=== PATIENT | female | born 2000 | race Caucasian/White ===

== ENCOUNTER 2020-10-07 02:26 | Emergency (ER) | payer OTHER ==
--- NOTE | 2020-10-07 03:08 | ERPHSYRPT ---
- History of Present Illness Time Seen by Provider: 10/07/20 02:45 Historian: patient, family Exam Limitations: no limitations Patient Subjective Stated Complaint: pt states she has been having intermittent lt lower abd pain for 3-4 days. pain has been much worse since 1999 Triage Nursing Assessment: pt states she has been having lt lower abd pain since about 1999. pt ambulatory with steady gait noted. respirations nonlabored. abd soft, pt reports tenderness with light palpation. bowel sounds present x4. Physician History: This is a 20-year-old white female who just moved here from [facility] and presents to the emergency department with intermittent left lower quadrant abdominal pain. Most often, it appears to occur around her menstrual period but occasionally, like 1 day ago and this morning the pain is intermittently sharp and stabbing and occurs at night. Patient has chronic nausea. There is no other associated symptoms. She has not been having any vomiting or diarrhea. She has had no abnormal vaginal discharge. She has had this worked up several months ago and was supposed to get some type of hormonal injection or medication but states that she attempted to follow-up but there was lack of communication. She then moved to [facility]. She has had a laparoscopic exploration and a "tumor" removed from her cyst. Patient does have a prior history of ovarian cysts Timing/Duration: day(s) (3-4) Activities at Onset: none Quality: sharpness, stabbing Abdominal Pain Onset Location: LLQ Pain Radiation: no radiation Severity of Pain-Max: moderate Severity of Pain-Current: moderate Modifying Factors: Improves With: nothing Associated Symptoms: nausea, No chest pain, No diarrhea, No loss of appetite, No vomiting Previous symptoms: same symptoms as today, no recent treatment Allergies/Adverse Reactions: Iodinated Contrast Media Allergy (Severe, Verified 10/07/20 03:21) Swelling aspirin Allergy (Intermediate, Verified 10/07/20 03:21) Swelling kiwi Allergy (Intermediate, Verified 10/07/20 03:21) peanut Allergy (Verified 10/07/20 03:21) acetaminophen [From Theraflu Day-Night Cold,Cough] Adverse Reaction (Mild, Verified 10/07/20 03:21) Vomiting dextromethorphan [From Theraflu Day-Night Cold,Cough] Adverse Reaction (Mild, Verified 10/07/20 03:21) Vomiting diphenhydramine [From Theraflu Day-Night Cold,Cough] Adverse Reaction (Mild, Verified 10/07/20 03:21) Vomiting guaifenesin [From Mucinex] Adverse Reaction (Mild, Verified 10/07/20 03:21) Nausea and Vomiting ibuprofen [From Advil] Adverse Reaction (Mild, Verified 10/07/20 03:21) Headache phenylephrine [From Theraflu Day-Night Cold,Cough] Adverse Reaction (Mild, Verified 10/07/20 03:21) Vomiting Hx Tetanus, Diphtheria Vaccination/Date Given: Yes Hx Influenza Vaccination/Date Given: No Hx Pneumococcal Vaccination/Date Given: No Immunizations Up to Date: Yes Travel Risk - International Travel Have you traveled outside of the country in past 3 weeks: No - Coronavirus Screening Are you exhibiting any of the following symptoms?: No Close contact with a COVID-19 positive Pt in past 14-21 Days: No - Vaccine Status Have you recieved a Covid-19 vaccination: No - Review of Systems Constitutional: No Symptoms Eyes: No Symptoms Ears, Nose, & Throat: No Symptoms Respiratory: No Symptoms Cardiac: No Symptoms Abdominal/Gastrointestinal: Abdominal Pain, Nausea, No Vomiting, No Diarrhea, No Constipation Genitourinary Symptoms: No Symptoms Musculoskeletal: No Symptoms Skin: No Symptoms Neurological: No Symptoms Psychological: No Symptoms Endocrine: No Symptoms Hematologic/Lymphatic: No Symptoms Immunological/Allergic: No Symptoms All Other Systems: Reviewed and Negative - Past Medical History Pertinent Past Medical History: Yes Other Medical History: hx of ovarian cysts - Past Surgical History Past Surgical History: Yes Other Surgical History: 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 laproscopic procedure to look at ovaries - Social History Smoking Status: Never smoker Exposure to second hand smoke: Yes Drug Use: none Patient Lives Alone: No - Female History Hx Last Menstrual Period: 09/25/2020 Hx Now: No - Nursing Vital Signs Nursing Vital Signs: Initial Vital Signs Temperature 98.4 F 10/07/20 02:30 Pulse Rate 109 H 10/07/20 02:30 Respiratory Rate 20 10/07/20 02:30 Blood Pressure 136/84 10/07/20 02:30 O2 Sat by Pulse Oximetry 97 10/07/20 02:30 Pain Scale Pain Intensity 4 - Physical Exam General Appearance: mild distress, alert, anxiety Eye Exam: PERRL/EOMI, eyes nml inspection Ears, Nose, Throat Exam: normal ENT inspection, moist mucous membranes Neck Exam: normal inspection, non-tender, supple, full range of motion Respiratory Exam: normal breath sounds, lungs clear, airway intact, No chest tenderness, No respiratory distress Cardiovascular Exam: tachycardia Gastrointestinal/Abdomen Exam: soft, normal bowel sounds, tenderness (Left lower quadrant), guarding (Left lower quadrant), No rebound Pelvic Exam: not done Rectal Exam: not done Back Exam: normal inspection, normal range of motion, No CVA tenderness, No vertebral tenderness Extremity Exam: normal inspection, normal range of motion, pelvis stable Neurologic Exam: alert, oriented x 3, cooperative, ore buyer II-XII nml as tested, n ormal mood/affect, nml cerebellar function, nml station & gait, sensation nml Skin Exam: normal color, warm, dry Lymphatic Exam: No adenopathy SpO2 Interpretation: normal SpO2: 97 O2 Delivery: Room Air - Course Nursing assessment & vital signs reviewed: Yes Ordered Tests: Active Orders 24 hr Category Date Time Status IV Insertion STAT Care 10/07/20 03:09 Active ABDOMEN AND PELVIS W/0 CONTRAS [CT] Stat Exams 10/07/20 03:42 Taken AMYLASE Stat Lab 10/07/20 03:12 Completed CBC W DIFF Stat Lab 10/07/20 03:12 Completed CMP Stat Lab 10/07/20 03:12 Completed HCG QUALITATIVE,SERUM Stat Lab 10/07/20 03:12 Completed LIPASE Stat Lab 10/07/20 03:12 Completed Lactic Acid Stat Lab 10/07/20 03:09 Completed UA W/RFX UR CULTURE Stat Lab 10/07/20 03:55 Completed Medication Summary Discontinued Medications Generic Name Dose Route Start Last Admin Trade Name Gloria PRN Reason Stop Dose Admin Hydromorphone HCl 0.5 mg 10/07/20 03:09 10/07/20 03:21 Hydromorphone 1 Mg/Ml Injection IV 10/07/20 03:10 0.5 mg STAT ONE Administration Hydromorphone HCl Confirm 10/07/20 03:20 Hydromorphone 1 Mg/Ml Injection Administered 10/07/20 03:21 Dose 1 mg .ROUTE .STK-MED ONE Sodium Chloride 500 mls @ 500 mls/hr 10/07/20 03:10 10/07/20 03:23 Sodium Chloride 0.9% 500 Ml IV 10/07/20 04:09 500 mls/hr .Q1H ONE Administration Sodium Chloride Confirm 10/07/20 03:20 Sodium Chloride 0.9% 500 Ml Administered 10/07/20 03:21 Dose 500 mls @ ud IV .STK-MED ONE Ketorolac Tromethamine 30 mg 10/07/20 03:09 10/07/20 03:22 Toradol 30 Mg Injection IV 10/07/20 03:10 30 mg STAT ONE Administration Ketorolac Tromethamine Confirm 10/07/20 03:19 Toradol 30 Mg Injection Administered 10/07/20 03:20 Dose 30 mg .ROUTE .STK-MED ONE Ondansetron HCl 4 mg 10/07/20 03:09 10/07/20 03:22 Zofran 4 Mg/2 Ml Vial IV 10/07/20 03:10 4 mg STAT ONE Administration Ondansetron HCl Confirm 10/07/20 03:19 Zofran 4 Mg/2 Ml Vial Administered 10/07/20 03:20 Dose 4 mg .ROUTE .STK-MED ONE Lab/Rad Data: Laboratory Result Diagrams 10/07/20 03:12 10/07/20 03:12 Laboratory Results 10/07/20 10/07/20 10/07/20 Range/Units 03:55 03:12 03:12 WBC (4.0-10.5) K/mm3 RBC (4.1-5.4) M/mm3 Hgb (12.0-16.0) gm/dl Hct (35-47) % MCV (78-100) fl MCH (26-32) pg MCHC (32-36) g/dl RDW (11.5-14.0) % Plt Count (150-450) K/mm3 MPV (7.5-11.0) fl Gran % (36.0-66.0) % Eos # (Auto) (0-0.5) Absolute Lymphs (auto) (1.0-4.6) Absolute Monos (auto) (0.0-1.3) Lymphocytes % (24.0-44.0) % Monocytes % (0.0-12.0) % Eosinophils % (0.00-5.0) % Basophils % (0.0-0.4) % Absolute Granulocytes (1.4-6.9) Basophils # (0-0.4) Sodium 139 (137-145) mmol/L Potassium 3.5 (3.5-5.1) mmol/L Chloride 104 (98-107) mmol/L Carbon Dioxide 25 (22-30) mmol/L Anion Gap 13.8 (5-15) MEQ/L BUN 12 (7-17) mg/dL Creatinine 0.87 (0.52-1.04) mg/dL Estimated GFR > 60.0 ML/MIN Glucose 108 H (74-106) mg/dL Lactic Acid (0.4-2.0) Calcium 10.1 (8.4-10.2) mg/dL Total Bilirubin 0.50 (0.2-1.3) mg/dL AST 25 (14-36) U/L ALT 24 (0-35) U/L Alkaline Phosphatase 82 (38-126) U/L Serum Total Protein 8.2 (6.3-8.2) g/dL Albumin 5.0 (3.5-5.0) g/dL Amylase 96 (30-110) U/L Lipase 87 (23-300) U/L Serum , Qual NEGATIVE (Negative) Urine Color YELLOW (YELLOW) Urine Appearance SLIGHTLY CLOUDY (CLEAR) Urine pH 6.0 (5-6) Ur Specific [place] 1.024 (1.005-1.025) Urine Protein NEGATIVE (Negative) Urine Ketones NEGATIVE (NEGATIVE) Urine Blood NEGATIVE (0-5) Conor/ul Urine Nitrite NEGATIVE (NEGATIVE) Urine Bilirubin NEGATIVE (NEGATIVE) Urine Urobilinogen 2 (0-1) mg/dL Ur Leukocyte Esterase MODERATE (NEGATIVE) Urine WBC (Auto) 6-10 (0-5) /HPF Urine RBC (Auto) 0-2 (0-2) /HPF U Epithel Cells (Auto) RARE (FEW) /HPF Urine Bacteria (Auto) NONE SEEN (NEGATIVE) /HPF Urine Mucus (Auto) SLIGHT (NEGATIVE) /HPF Urine Culture Reflexed NO (NO) Urine Glucose NEGATIVE (NEGATIVE) mg/dL 10/07/20 10/07/20 Range/Units 03:12 03:09 WBC 8.9 (4.0-10.5) K/mm3 RBC 4.89 (4.1-5.4) M/mm3 Hgb 14.6 (12.0-16.0) gm/dl Hct 43.3 (35-47) % MCV 88.5 (78-100) fl MCH 29.9 (26-32) pg MCHC 33.7 (32-36) g/dl RDW 13.1 (11.5-14.0) % Plt Count 267 (150-450) K/mm3 MPV 10.8 (7.5-11.0) fl Gran % 59.9 (36.0-66.0) % Eos # (Auto) 0.10 (0-0.5) Absolute Lymphs (auto) 2.73 (1.0-4.6) Absolute Monos (auto) 0.74 (0.0-1.3) Lymphocytes % 30.6 (24.0-44.0) % Monocytes % 8.3 (0.0-12.0) % Eosinophils % 1.1 (0.00-5.0) % Basophils % 0.1 (0.0-0.4) % Absolute Granulocytes 5.34 (1.4-6.9) Basophils # 0.01 (0-0.4) Sodium (137-145) mmol/L Potassium (3.5-5.1) mmol/L Chloride (98-107) mmol/L Carbon Dioxide (22-30) mmol/L Anion Gap (5-15) MEQ/L BUN (7-17) mg/dL Creatinine (0.52-1.04) mg/dL Estimated GFR ML/MIN Glucose (74-106) mg/dL Lactic Acid 1.2 (0.4-2.0) Calcium (8.4-10.2) mg/dL Total Bilirubin (0.2-1.3) mg/dL AST (14-36) U/L ALT (0-35) U/L Alkaline Phosphatase (38-126) U/L Serum Total Protein (6.3-8.2) g/dL Albumin (3.5-5.0) g/dL Amylase (30-110) U/L Lipase (23-300) U/L Serum , Qual (Negative) Urine Color (YELLOW) Urine Appearance (CLEAR) Urine pH (5-6) Ur Specific [place] (1.005-1.025) Urine Protein (Negative) Urine Ketones (NEGATIVE) Urine Blood (0-5) Conor/ul Urine Nitrite (NEGATIVE) Urine Bilirubin (NEGATIVE) Urine Urobilinogen (0-1) mg/dL Ur Leukocyte Esterase (NEGATIVE) Urine WBC (Auto) (0-5) /HPF Urine RBC (Auto) (0-2) /HPF U Epithel Cells (Auto) (FEW) /HPF Urine Bacteria (Auto) (NEGATIVE) /HPF Urine Mucus (Auto) (NEGATIVE) /HPF Urine Culture Reflexed (NO) Urine Glucose (NEGATIVE) mg/dL - Progress Progress: improved, pain not gone completely Progress Note: 10/07/20 04:44 CAT scan of the abdomen and pelvis shows no acute findings on this noncontrasted exam. Counseled pt/family regarding: lab results, diagnosis, need for follow-up, rad results - Departure Departure Disposition: Home Clinical Impression: Abdominal pain Condition: Stable Critical Care Time: No Referrals: MINAL REINOSO MD [Primary Care Provider] - Additional Instructions: Use Tylenol and ibuprofen for pain control if there are no contraindications or allergies. Follow-up with Dr.Dr. Villegas's office for further management. Drink plenty of fluids. Take medication as prescribed Prescriptions: Ciprofloxacin [Cipro 500 MG] 500 mg PO BID #14 tablet
[2020-10-07 03:15] LABS: Absolute Neutrophil Ct (ANC) 5.34 (1.4-6.9); BASOPHIL % 0.1 % (0.0-0.4); Basophil (Absolute #) 0.01 (0-0.4); Eosinophil % 1.1 % (0.00-5.0); Hematocrit 43.3 % (35-47); Hemoglobin 14.6 gm/dl (12.0-16.0); Lymphocyte (Absolute #) 2.73 (1.0-4.6); Lymphocytes % 30.6 % (24.0-44.0); Mean Cell Volume 88.5 fl (78-100); Mean Corpuscular Hemoglobin 29.9 pg (26-32); Mean Corpuscular Hgb Concent. 33.7 g/dl (32-36); Mean Platelet Volume 10.8 fl (7.5-11.0); Monocyte (Absolute #) 0.74 (0.0-1.3); Monocytes % 8.3 % (0.0-12.0); Neutrophil % 59.9 % (36.0-66.0); Platelet Count 267 K/mm3 (150-450); Red Blood Count 4.89 M/mm3 (4.1-5.4); Red Cell Distribution Width 13.1 % (11.5-14.0); White Blood Count 8.9 K/mm3 (4.0-10.5)
[2020-10-07] MEDS ORDERED: Zofran 4 MG/2 ML VIAL ONE (03:19)
[2020-10-07] MEDS ORDERED: TORAdol 30 mg Injection ONE (03:19)
[2020-10-07 03:20] LABS: ALKALINE PHOSPHATASE 82 U/L (38-126); AMYLASE 96 U/L (30-110); ANION GAP 13.8 MEQ/L (5-15); BLOOD UREA NITROGEN 12 mg/dL (7-17); CHLORIDE 104 mmol/L (98-107); Calcium 10.1 mg/dL (8.4-10.2); Carbon Dioxide 25 mmol/L (22-30); Creatinine 1 0.87 mg/dL (0.52-1.04); EST GLOMERULAR FILTRATION RATE > 60.0 ML/MIN; Glucose 108 mg/dL (74-106); LIPASE 87 U/L (23-300); Potassium 3.5 mmol/L (3.5-5.1); SGOT/AST 25 U/L (14-36); SGPT/ALT 24 U/L (0-35); SODIUM 139 mmol/L (137-145); Total Protein 8.2 g/dL (6.3-8.2)
[2020-10-07] MEDS ORDERED: Sodium Chloride 0.9% 500 ML 500 ML IV ONE (03:20)
[2020-10-07] MEDS ORDERED: Hydromorphone 1 mg/ml Injection ONE (03:20)
[2020-10-07] MEDS: Hydromorphone 1 mg/ml Injection IV ONE (03:21)
[2020-10-07] MEDS: Zofran 4 MG/2 ML VIAL IV ONE (03:22)
[2020-10-07] MEDS: TORAdol 30 mg Injection IV ONE (03:22)
[2020-10-07] MEDS: Sodium Chloride 0.9% 500 ML 500 ML IV ONE (03:23)
[2020-10-07 04:34] LABS: Appearance SLIGHTLY CLOUDY (CLEAR); Bilirubin NEGATIVE (NEGATIVE); Blood NEGATIVE Ery/ul (0-5); Epithelial Cells RARE /HPF (FEW); Glucose NEGATIVE (NEGATIVE); Ketones NEGATIVE (NEGATIVE); Leukocyte Esterase MODERATE (NEGATIVE); Mucus SLIGHT /HPF (NEGATIVE); Nitrite NEGATIVE (NEGATIVE); Protein,Urine Dip NEGATIVE (Negative); RBC 0-2 /HPF (0-2); Specific Gravity 1.024 (1.005-1.025); Urobilinogen 2 mg/dL (0-1)
[2020-10-07 04:35] LABS: Bacteria NONE SEEN /HPF (NEGATIVE)
[2020-10-07 05:08] VITALS: BP 98/68; PULSE 69; O2SAT 96
[2020-10-07] MEDS ORDERED: Levofloxacin 250MG Tablet ONE (05:09)
[2020-10-07] MEDS: Levofloxacin 250MG Tablet PO ONE (05:09)
--- NOTE | 2020-10-07 08:42 | XRAY ---
Indication: Left lower quadrant pain, nausea, and vomiting. History ovarian cysts. Multiple contiguous axial images obtained through the abdomen and pelvis without contrast. Comparison: None Lung bases are clear. Heart is not enlarged. Minimal respiration artifact throughout the abdomen. Noncontrasted stomach and bowel loops appear nonobstructed. Normal appendix. There is mild diffuse scattered colonic fecal debris, greatest sigmoid colon. No free fluid/air. Remaining liver, gallbladder, pancreas, spleen, adrenal glands, kidneys, ureters, bladder, uterus, and aorta appear unremarkable for noncontrast exam. Osseous structures intact. No ventral or inguinal hernias. Impression: 1. Minimal respiration artifact. 2. Mild fecal stasis. 3. Remaining CT abdomen/pelvis without contrast exam is grossly negative. Comment: Preliminary interpretation was made by [facility]. No critical discrepancy.
== END 2020-10-07 05:18 | disposition home or self-care (01) ==
LOC: ED 02:26
DX: R10.9 Unspecified abdominal pain (principal)
CPT/HCPCS: 36000; 36415; 74176; 80053; 81001; 81025; 82150; 83605; 83690; 85025; 96360; 96374; 96375; 99284; J1170; J1885; J2405; A9270-GY

== ENCOUNTER 2020-10-22 17:29 | Emergency (ER) | payer OTHER ==
--- NOTE | 2020-10-22 17:33 | ERPHSYRPT ---
- History of Present Illness Time Seen by Provider: 10/22/20 17:33 Source: patient Exam Limitations: no limitations Physician History: This is a 20-year-old white female who presents to the emergency department with "allergic reaction" after taking a single dose of a new oral contraceptive agent. She received a prescription from Dr. Villegas, her OB technical proposal writer earlier today. She took a dose and approximately 2 hours later began "not feeling right" she felt as though she was going to pass out and then did pass out she is has rash on her hands and knees. She has had no nausea vomiting no diarrhea. She is not short of breath. She arrives more anxious than short of breath. She has no chest pain. She has no abdominal pain. Timing/Duration: today Quality: burning Severity: mild Location: generalized Possible Causes: medications Associated Symptoms: denies symptoms Allergies/Adverse Reactions: Iodinated Contrast Media Allergy (Severe, Verified 10/22/20 17:50) Swelling aspirin Allergy (Intermediate, Verified 10/22/20 17:50) Swelling kiwi Allergy (Intermediate, Verified 10/22/20 17:50) peanut Allergy (Verified 10/22/20 17:50) acetaminophen [From Theraflu Day-Night Cold,Cough] Adverse Reaction (Mild, Verified 10/22/20 17:50) Vomiting dextromethorphan [From Theraflu Day-Night Cold,Cough] Adverse Reaction (Mild, Verified 10/22/20 17:50) Vomiting diphenhydramine [From Theraflu Day-Night Cold,Cough] Adverse Reaction (Mild, Verified 10/22/20 17:50) Vomiting guaifenesin [From Mucinex] Adverse Reaction (Mild, Verified 10/22/20 17:50) Nausea and Vomiting ibuprofen [From Advil] Adverse Reaction (Mild, Verified 10/22/20 17:50) Headache phenylephrine [From Theraflu Day-Night Cold,Cough] Adverse Reaction (Mild, Verified 10/22/20 17:50) Vomiting Home Medications: l-Norgest/E.estradiol-E.estrad [Simpesse 0.15-0.03-0.01 mg Tab] 1 each PO DAILY 10/22/20 [History] Hx Tetanus, Diphtheria Vaccination/Date Given: Yes Hx Influenza Vaccination/Date Given: No Hx Pneumococcal Vaccination/Date Given: No Travel Risk - International Travel Have you traveled outside of the country in past 3 weeks: No - Coronavirus Screening Are you exhibiting any of the following symptoms?: No Close contact with a COVID-19 positive Pt in past 14-21 Days: No - Vaccine Status Have you recieved a Covid-19 vaccination: No - Review of Systems Constitutional: No Symptoms Eyes: No Symptoms Ears, Nose, & Throat: No Symptoms Respiratory: No Symptoms Cardiac: No Symptoms Abdominal/Gastrointestinal: No Symptoms Genitourinary Symptoms: No Symptoms Musculoskeletal: No Symptoms Skin: Rash (Bilateral knees and hands) Neurological: No Symptoms Psychological: No Symptoms Endocrine: No Symptoms Hematologic/Lymphatic: No Symptoms Immunological/Allergic: No Symptoms All Other Systems: Reviewed and Negative - Past Medical History Pertinent Past Medical History: Yes Other Medical History: hx of ovarian cysts - Past Surgical History Past Surgical History: Yes Other Surgical History: 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 laproscopic procedure to look at ovaries - Social History Smoking Status: Never smoker Exposure to second hand smoke: Yes Drug Use: none Patient Lives Alone: No - Nursing Vital Signs Nursing Vital Signs: Initial Vital Signs Temperature 97.9 F 10/22/20 17:36 Pulse Rate 102 H 10/22/20 17:36 Respiratory Rate 30 H 10/22/20 17:36 Blood Pressure 117/84 10/22/20 17:36 O2 Sat by Pulse Oximetry 98 10/22/20 17:36 Pain Scale Pain Intensity 8 - Physical Exam General Appearance: no apparent distress, alert, anxiety Eye Exam: PERRL/EOMI, eyes nml inspection Ears, Nose, Throat Exam: normal ENT inspection, moist mucous membranes Neck Exam: normal inspection, non-tender, supple, full range of motion Respiratory Exam: normal breath sounds, lungs clear, airway intact, No chest tenderness, No respiratory distress Cardiovascular Exam: regular rate/rhythm, normal heart sounds, normal peripheral pulses Gastrointestinal/Abdomen Exam: soft, normal bowel sounds, No tenderness Pelvic Exam: not done Rectal Exam: not done Back Exam: normal inspection, normal range of motion, No CVA tenderness, No vertebral tenderness Extremity Exam: normal inspection, normal range of motion, pelvis stable Neurologic Exam: alert, oriented x 3, cooperative, hedis review nurse II-XII nml as tested, normal mood/affect, nml cerebellar function, nml station & gait, sensation nml Skin Exam: normal color, warm, dry Lymphatic Exam: No adenopathy SpO2 Interpretation: normal O2 Delivery: Room Air - Course Nursing assessment & vital signs reviewed: Yes EKG Interpreted by Me: RATE ([id number]), Sinus Tach, NORMAL AXIS, NORMAL INTERVALS, NORMAL QRS, Non-specific ST Changes, Other (No acute ischemic changes. No comparison EKG available.) Ordered Tests: Active Orders 24 hr Category Date Time Status EKG-ER Only STAT Care 10/22/20 18:02 Active IV Insertion STAT Care 10/22/20 18:02 Active Pulse Oximetry (ED) STAT Care 10/22/20 18:02 Active CBC W DIFF Stat Lab 10/22/20 18:02 Completed CMP Stat Lab 10/22/20 18:02 Completed HCG QUALITATIVE,SERUM Stat Lab 10/22/20 18:00 Completed Medication Summary Discontinued Medications Generic Name Dose Route Start Last Admin Trade Name Freq PRN Reason Stop Dose Admin Diphenhydramine HCl 25 mg 10/22/20 18:02 10/22/20 18:30 Benadryl 50 Mg/Ml IV 10/22/20 18:03 25 mg STAT ONE Administration Diphenhydramine HCl Confirm 10/22/20 18:26 Benadryl 50 Mg/Ml Administered 10/22/20 18:27 Dose 50 mg .ROUTE .STK-MED ONE Famotidine 20 mg 10/22/20 18:02 10/22/20 18:30 Pepcid 20 Mg Vial IV 10/22/20 18:03 20 mg STAT ONE Administration Famotidine Confirm 10/22/20 18:26 Pepcid 20 Mg Vial Administered 10/22/20 18:27 Dose 20 mg IV .STK-MED ONE Sodium Chloride 1,000 mls @ 999 mls/hr 10/22/20 18:02 10/22/20 18:30 Sodium Chloride 0.9% 1000 Ml IV 10/22/20 19:02 999 mls/hr .Q1H1M STA Administration Sodium Chloride Confirm 10/22/20 18:26 Sodium Chloride 0.9% 1000 Ml Administered 10/22/20 18:27 Dose 1,000 mls @ ud .ROUTE .STK-MED ONE Methylprednisolone Sodium Succinate 125 mg 10/22/20 18:02 10/22/20 18:29 Solu-Medrol 125 Mg IV 10/22/20 18:03 125 mg STAT ONE Administration Methylprednisolone Sodium Succinate Confirm 10/22/20 18:26 Solu-Medrol 125 Mg Administered 10/22/20 18:27 Dose 125 mg .ROUTE .STK-MED ONE Lab/Rad Data: Laboratory Result Diagrams 10/22/20 18:02 10/22/20 18:02 Laboratory Results 10/22/20 10/22/20 10/22/20 Range/Units 18:02 18:02 18:00 WBC 7.6 (4.0-10.5) K/mm3 RBC 4.45 (4.1-5.4) M/mm3 Hgb 13.2 (12.0-16.0) gm/dl Hct 39.5 (35-47) % MCV 88.8 (78-100) fl MCH 29.7 (26-32) pg MCHC 33.4 (32-36) g/dl RDW 12.9 (11.5-14.0) % Plt Count 249 (150-450) K/mm3 MPV 10.3 (7.5-11.0) fl Gran % 69.9 H (36.0-66.0) % Eos # (Auto) 0.04 (0-0.5) Absolute Lymphs (auto) 1.73 (1.0-4.6) Absolute Monos (auto) 0.52 (0.0-1.3) Lymphocytes % 22.7 L (24.0-44.0) % Monocytes % 6.8 (0.0-12.0) % Eosinophils % 0.5 (0.00-5.0) % Basophils % 0.1 (0.0-0.4) % Absolute Granulocytes 5.31 (1.4-6.9) Basophils # 0.01 (0-0.4) Sodium 140 (137-145) mmol/L Potassium 3.3 L (3.5-5.1) mmol/L Chloride 104 (98-107) mmol/L Carbon Dioxide 21 L (22-30) mmol/L Anion Gap 17.6 H (5-15) MEQ/L BUN 11 (7-17) mg/dL Creatinine 0.88 (0.52-1.04) mg/dL Estimated GFR > 60.0 ML/MIN Glucose 96 (74-106) mg/dL Calcium 10.0 (8.4-10.2) mg/dL Total Bilirubin 1.00 (0.2-1.3) mg/dL AST 38 H (14-36) U/L ALT 40 H (0-35) U/L Alkaline Phosphatase 71 (38-126) U/L Serum Total Protein 8.2 (6.3-8.2) g/dL Albumin 5.0 (3.5-5.0) g/dL Serum , Qual NEGATIVE (Negative) - Progress Progress: improved Counseled pt/family regarding: lab results, diagnosis, need for follow-up - Departure Departure Disposition: Home Clinical Impression: Allergic reaction caused by a drug, Anxiety Condition: Stable Critical Care Time: No Referrals: MINAL REINOSO MD [Primary Care Provider] - Additional Instructions: Drink plenty of fluids. Stop taking the oral contraceptive agents that was prescribed. Call Dr. Villegas tomorrow morning to make arrangements for follow-up appointment. Take [id number] Benadryl 25 mg orally 3 times a day for the next 4 days. Prescriptions: Prednisone 10 mg [Deltasone 10 mg] 10 mg PO TID #12 tablet Famotidine 20 mg [Pepcid 20 MG] 20 mg PO DAILY #10 tablet
[2020-10-22] MEDS ORDERED: Pepcid 20 MG VIAL IV ONE ×2 (18:02→18:26)
[2020-10-22] MEDS ORDERED: solu-MEDROL 125 MG IV ONE (18:02)
[2020-10-22] MEDS ORDERED: BENADRYL 50 MG/ML IV ONE (18:02)
[2020-10-22] MEDS ORDERED: Sodium Chloride 0.9% 1000 ML 1,000 ML IV STA (18:02)
[2020-10-22 18:07] LABS: Absolute Neutrophil Ct (ANC) 5.31 (1.4-6.9); BASOPHIL % 0.1 % (0.0-0.4); Basophil (Absolute #) 0.01 (0-0.4); Eosinophil % 0.5 % (0.00-5.0); Eosinophil (Absolute #) 0.04 (0-0.5); Hematocrit 39.5 % (35-47); Hemoglobin 13.2 gm/dl (12.0-16.0); Lymphocyte (Absolute #) 1.73 (1.0-4.6); Lymphocytes % 22.7 % (24.0-44.0); Mean Cell Volume 88.8 fl (78-100); Mean Corpuscular Hemoglobin 29.7 pg (26-32); Mean Corpuscular Hgb Concent. 33.4 g/dl (32-36); Mean Platelet Volume 10.3 fl (7.5-11.0); Monocyte (Absolute #) 0.52 (0.0-1.3); Monocytes % 6.8 % (0.0-12.0); Neutrophil % 69.9 % (36.0-66.0); Platelet Count 249 K/mm3 (150-450); Red Blood Count 4.45 M/mm3 (4.1-5.4); Red Cell Distribution Width 12.9 % (11.5-14.0); White Blood Count 7.6 K/mm3 (4.0-10.5)
[2020-10-22 18:17] LABS: ALKALINE PHOSPHATASE 71 U/L (38-126); ANION GAP 17.6 MEQ/L (5-15); BLOOD UREA NITROGEN 11 mg/dL (7-17); CHLORIDE 104 mmol/L (98-107); Carbon Dioxide 21 mmol/L (22-30); Creatinine 1 0.88 mg/dL (0.52-1.04); EST GLOMERULAR FILTRATION RATE > 60.0 ML/MIN; Glucose 96 mg/dL (74-106); Potassium 3.3 mmol/L (3.5-5.1); SGOT/AST 38 U/L (14-36); SGPT/ALT 40 U/L (0-35); SODIUM 140 mmol/L (137-145); Total Protein 8.2 g/dL (6.3-8.2)
[2020-10-22] MEDS ORDERED: Sodium Chloride 0.9% 1000 ML 1,000 ML ONE (18:26)
[2020-10-22] MEDS ORDERED: solu-MEDROL 125 MG ONE (18:26)
[2020-10-22] MEDS ORDERED: BENADRYL 50 MG/ML ONE (18:26)
[2020-10-22 18:33] VITALS: O2SAT 99
[2020-10-22 21:49] VITALS: BP 124/78; PULSE 86
== END 2020-10-22 20:45 | disposition home or self-care (01) ==
LOC: ED 17:29
DX: T50.905A Adverse effect of unspecified drugs, medicaments and biological substances, initial encounter (principal); F41.9 Anxiety disorder, unspecified
CPT/HCPCS: 36000; 36415; 80053; 81025; 85025; 93005; 94760; 96374; 96375; 99203; 99214; 99284; J1200; J2930

== ENCOUNTER 2020-11-28 22:44 | Emergency (ER) | payer OTHER ==
--- NOTE | 2020-11-28 22:58 | ERPHSYRPT ---
- History of Present Illness Time Seen by Provider: 11/28/20 22:58 Source: patient Exam Limitations: no limitations Physician History: This is a 20-year-old white female who has been having irregular menstrual periods and presents with suprapubic pain and pressure and lower lumbar pain as well. Symptoms began 3 days ago. She has not had any vaginal bleeding. She did take an [id number] test which was positive. Because of the pain and pressure she is feeling in the suprapubic area in the lower lumbar region, patient came into the emergency department for evaluation. Method of Injury: other (No injury) Back Pain Location: lumbar spine, paraspinous muscles Severity of Pain-Max: mild Severity of Pain-Current: mild Associated Symptoms: lower back pain, other (Suprapubic pressure) Previous symptoms: no prior history Allergies/Adverse Reactions: Iodinated Contrast Media Allergy (Severe, Verified 11/28/20 23:31) Swelling aspirin Allergy (Intermediate, Verified 11/28/20 23:31) Swelling kiwi Allergy (Intermediate, Verified 11/28/20 23:31) peanut Allergy (Verified 11/28/20 23:31) acetaminophen [From Theraflu Day-Night Cold,Cough] Adverse Reaction (Mild, Verified 10/22/20 17:50) Vomiting dextromethorphan [From Theraflu Day-Night Cold,Cough] Adverse Reaction (Mild, Verified 11/28/20 23:31) Vomiting diphenhydramine [From Theraflu Day-Night Cold,Cough] Adverse Reaction (Mild, Verified 11/28/20 23:31) Vomiting guaifenesin [From Mucinex] Adverse Reaction (Mild, Verified 11/28/20 23:31) Nausea and Vomiting ibuprofen [From Advil] Adverse Reaction (Mild, Verified 11/28/20 23:31) Headache phenylephrine [From Theraflu Day-Night Cold,Cough] Adverse Reaction (Mild, Verified 11/28/20 23:31) Vomiting Home Medications: Norethindrone 0.35 mg PO DAILY 11/28/20 [History] Hx Tetanus, Diphtheria Vaccination/Date Given: Yes Hx Influenza Vaccination/Date Given: No Hx Pneumococcal Vaccination/Date Given: No Travel Risk - International Travel Have you traveled outside of the country in past 3 weeks: No - Coronavirus Screening Are you exhibiting any of the following symptoms?: No Close contact with a COVID-19 positive Pt in past 14-21 Days: No - Vaccine Status Have you recieved a Covid-19 vaccination: No - Review of Systems Constitutional: No Symptoms Eyes: No Symptoms Ears, Nose, & Throat: No Symptoms Respiratory: No Symptoms Cardiac: No Symptoms Abdominal/Gastrointestinal: Abdominal Pain (Pubic pain/pressure) Genitourinary Symptoms: Flank Pain (Bilateral lower) Musculoskeletal: Back Pain Skin: No Symptoms Neurological: No Symptoms Psychological: No Symptoms Endocrine: No Symptoms Hematologic/Lymphatic: No Symptoms Immunological/Allergic: No Symptoms All Other Systems: Reviewed and Negative - Past Medical History Pertinent Past Medical History: Yes Other Medical History: hx of ovarian cysts - Past Surgical History Past Surgical History: Yes Other Surgical History: 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 laproscopic procedure to look at ovaries - Social History Smoking Status: Never smoker Exposure to second hand smoke: Yes Drug Use: none Patient Lives Alone: No - Nursing Vital Signs Nursing Vital Signs: Initial Vital Signs Temperature 99.1 F 11/28/20 23:13 Pulse Rate 106 H 11/28/20 23:13 Respiratory Rate 18 11/28/20 23:13 Blood Pressure 118/88 11/28/20 23:13 O2 Sat by Pulse Oximetry 100 11/28/20 23:13 Pain Scale Pain Intensity 9 - Physical Exam General Appearance: no apparent distress, alert, anxiety Eye Exam: PERRL/EOMI, eyes nml inspection Ears, Nose, Throat Exam: normal ENT inspection, moist mucous membranes Neck Exam: normal inspection, non-tender, supple, full range of motion Respiratory Exam: normal breath sounds, lungs clear, airway intact, No chest tenderness, No respiratory distress Cardiovascular Exam: regular rate/rhythm, normal heart sounds, normal peripheral pulses Gastrointestinal Exam: soft, normal bowel sounds, No tenderness Pelvic Exam: not done Rectal Exam: not done Back Exam: normal inspection, normal range of motion, CVA tenderness (Bilateral), No vertebral tenderness Extremity Exam: normal inspection, normal range of motion, pelvis stable Neurologic Exam: alert, oriented x 3, cooperative, plastic and reconstructive surgeon II-XII nml as tested, normal mood/affect, nml cerebellar function, nml station & gait, sensation nml Skin Exam: normal color, warm, dry Lymphatic Exam: No adenopathy SpO2 Interpretation: normal O2 Delivery: Room Air - Course Nursing assessment & vital signs reviewed: Yes Ordered Tests: Active Orders 24 hr Category Date Time Status IV Insertion STAT Care 11/28/20 23:28 Active ABDOMEN AND PELVIS W/0 CONTRAS [CT] Routine Exams 11/29/20 01:07 Taken AMYLASE Stat Lab 11/28/20 23:33 Completed CBC W DIFF Stat Lab 11/28/20 23:33 Completed CMP Stat Lab 11/28/20 23:33 Completed HCG, Quantitative (Inhouse) Stat Lab 11/28/20 23:34 Completed HCG,QUALITATIVE URINE Stat Lab 11/28/20 23:45 Completed LIPASE Stat Lab 11/28/20 23:33 Completed Lactic Acid Stat Lab 11/28/20 23:23 Completed UA W/RFX UR CULTURE Stat Lab 11/28/20 23:45 Completed Medication Summary Discontinued Medications Generic Name Dose Route Start Last Admin Trade Name Freq PRN Reason Stop Dose Admin Sodium Chloride 1,000 mls @ 999 mls/hr 11/28/20 23:28 11/28/20 23:35 Sodium Chloride 0.9% 1000 Ml IV 11/29/20 00:28 999 mls/hr .[id number] STA Administration Sodium Chloride Confirm 11/28/20 23:34 Sodium Chloride 0.9% 1000 Ml Administered 11/28/20 23:35 Dose 1,000 mls @ ud .ROUTE .K-MED ONE Lab/Rad Data: Laboratory Result Diagrams 11/28/20 23:33 11/28/20 23:33 Laboratory Results 11/28/20 11/28/20 11/28/20 Range/Units 23:45 23:45 23:34 WBC (4.0-10.5) K/mm3 RBC (4.1-5.4) M/mm3 Hgb (12.0-16.0) gm/dl Hct (35-47) % MCV (78-100) fl MCH (26-32) pg MCHC (32-36) g/dl RDW (11.5-14.0) % Plt Count (150-450) K/mm3 MPV (7.5-11.0) fl Gran % (36.0-66.0) % Eos # (Auto) (0-0.5) Absolute Lymphs (auto) (1.0-4.6) Absolute Monos (auto) (0.0-1.3) Lymphocytes % (24.0-44.0) % Monocytes % (0.0-12.0) % Eosinophils % (0.00-5.0) % Basophils % (0.0-0.4) % Absolute Granulocytes (1.4-6.9) Basophils # (0-0.4) Sodium (137-145) mmol/L Potassium (3.5-5.1) mmol/L Chloride (98-107) mmol/L Carbon Dioxide (22-30) mmol/L Anion Gap (5-15) MEQ/L BUN (7-17) mg/dL Creatinine (0.52-1.04) mg/dL Estimated GFR ML/MIN Glucose (74-106) mg/dL Lactic Acid (0.4-2.0) Calcium (8.4-10.2) mg/dL Total Bilirubin (0.2-1.3) mg/dL AST (14-36) U/L ALT (0-35) U/L Alkaline Phosphatase (38-126) U/L Serum Total Protein (6.3-8.2) g/dL Albumin (3.5-5.0) g/dL Amylase (30-110) U/L Lipase (23-300) U/L Beta HCG, Quant < 2.39 mIU/ml Urine Color YELLOW (YELLOW) Urine Appearance SLIGHTLY CLOUDY (CLEAR) Urine pH 5.0 (5-6) Ur Specific [place] 1.025 (1.005-1.025) Urine Protein NEGATIVE (Negative) Urine Ketones NEGATIVE (NEGATIVE) Urine Blood NEGATIVE (0-5) Conor/ul Urine Nitrite NEGATIVE (NEGATIVE) Urine Bilirubin NEGATIVE (NEGATIVE) Urine Urobilinogen NEGATIVE (0-1) mg/dL Ur Leukocyte Esterase NEGATIVE (NEGATIVE) Urine WBC (Auto) 3-5 (0-5) /HPF Urine RBC (Auto) 0-2 (0-2) /HPF U Epithel Cells (Auto) RARE (FEW) /HPF Urine Bacteria (Auto) RARE (NEGATIVE) /HPF Urine Mucus (Auto) SLIGHT (NEGATIVE) /HPF Urine Culture Reflexed NO (NO) Urine Glucose NEGATIVE (NEGATIVE) mg/dL Urine HCG, Qual NEGATIVE (Negative) 11/28/20 11/28/20 11/28/20 Range/Units 23:33 23:33 23:23 WBC 7.5 (4.0-10.5) K/mm3 RBC 4.62 (4.1-5.4) M/mm3 Hgb 13.6 (12.0-16.0) gm/dl Hct 41.2 (35-47) % MCV 89.2 (78-100) fl MCH 29.4 (26-32) pg MCHC 33.0 (32-36) g/dl RDW 13.5 (11.5-14.0) % Plt Count 242 (150-450) K/mm3 MPV 10.3 (7.5-11.0) fl Gran % 60.5 (36.0-66.0) % Eos # (Auto) 0.12 (0-0.5) Absolute Lymphs (auto) 2.23 (1.0-4.6) Absolute Monos (auto) 0.60 (0.0-1.3) Lymphocytes % 29.8 (24.0-44.0) % Monocytes % 8.0 (0.0-12.0) % Eosinophils % 1.6 (0.00-5.0) % Basophils % 0.1 (0.0-0.4) % Absolute Granulocytes 4.53 (1.4-6.9) Basophils # 0.01 (0-0.4) Sodium 140 (137-145) mmol/L Potassium 3.5 (3.5-5.1) mmol/L Chloride 105 (98-107) mmol/L Carbon Dioxide 24 (22-30) mmol/L Anion Gap 13.4 (5-15) MEQ/L BUN 7 (7-17) mg/dL Creatinine 0.69 (0.52-1.04) mg/dL Estimated GFR > 60.0 ML/MIN Glucose 114 H (74-106) mg/dL Lactic Acid 1.5 (0.4-2.0) Calcium 9.5 (8.4-10.2) mg/dL Total Bilirubin 0.90 (0.2-1.3) mg/dL AST 27 (14-36) U/L ALT 21 (0-35) U/L Alkaline Phosphatase 66 (38-126) U/L Serum Total Protein 7.9 (6.3-8.2) g/dL Albumin 4.7 (3.5-5.0) g/dL Amylase 104 (30-110) U/L Lipase 77 (23-300) U/L Beta HCG, Quant mIU/ml Urine Color (YELLOW) Urine Appearance (CLEAR) Urine pH (5-6) Ur Specific [place] (1.005-1.025) Urine Protein (Negative) Urine Ketones (NEGATIVE) Urine Blood (0-5) Conor/ul Urine Nitrite (NEGATIVE) Urine Bilirubin (NEGATIVE) Urine Urobilinogen (0-1) mg/dL Ur Leukocyte Esterase (NEGATIVE) Urine WBC (Auto) (0-5) /HPF Urine RBC (Auto) (0-2) /HPF U Epithel Cells (Auto) (FEW) /HPF Urine Bacteria (Auto) (NEGATIVE) /HPF Urine Mucus (Auto) (NEGATIVE) /HPF Urine Culture Reflexed (NO) Urine Glucose (NEGATIVE) mg/dL Urine HCG, Qual (Negative) - Progress Progress: improved, re-examined Progress Note: 11/29/20 02:22 CAT scan of the abdomen pelvis without contrast shows some bowel wall thickening in the rectum consistent with mild proctitis. Medical decision making: This patient has no complaints of specific rectal pain. She has not had any rectal bleeding complaints. I will treat the patient's symptoms with Flagyl. We will also have her take NSAIDs as well. She will be instructed to follow-up with her primary care physician for further management. Counseled pt/family regarding: lab results, diagnosis, need for follow-up, rad results - Departure Departure Disposition: Home Clinical Impression: Abdominal pain, Low back pain Condition: Stable Critical Care Time: No Referrals: MINAL REINOSO MD [Primary Care Provider] - Additional Instructions: Drink plenty of fluids. Take your medication as prescribed. Follow-up with primary care physician for further management. Had Tylenol for pain control if you are not allergic to these medications. Prescriptions: Metronidazole 500 mg [Flagyl 500 MG] 500 mg PO TID #21 tablet Naproxen 500 mg [Naprosyn 500 MG] 500 mg PO BID #10 tablet
[2020-11-28] MEDS ORDERED: Sodium Chloride 0.9% 1000 ML 1,000 ML IV STA (23:28)
[2020-11-28] MEDS ORDERED: Sodium Chloride 0.9% 1000 ML 1,000 ML ONE (23:34)
[2020-11-28 23:38] LABS: Absolute Neutrophil Ct (ANC) 4.53 (1.4-6.9); BASOPHIL % 0.1 % (0.0-0.4); Basophil (Absolute #) 0.01 (0-0.4); Eosinophil % 1.6 % (0.00-5.0); Eosinophil (Absolute #) 0.12 (0-0.5); Hematocrit 41.2 % (35-47); Hemoglobin 13.6 gm/dl (12.0-16.0); Lymphocyte (Absolute #) 2.23 (1.0-4.6); Lymphocytes % 29.8 % (24.0-44.0); Mean Cell Volume 89.2 fl (78-100); Mean Corpuscular Hemoglobin 29.4 pg (26-32); Mean Platelet Volume 10.3 fl (7.5-11.0); Neutrophil % 60.5 % (36.0-66.0); Platelet Count 242 K/mm3 (150-450); Red Blood Count 4.62 M/mm3 (4.1-5.4); Red Cell Distribution Width 13.5 % (11.5-14.0); White Blood Count 7.5 K/mm3 (4.0-10.5)
[2020-11-28 23:50] LABS: ALBUMIN 4.7 g/dL (3.5-5.0); ALKALINE PHOSPHATASE 66 U/L (38-126); AMYLASE 104 U/L (30-110); ANION GAP 13.4 MEQ/L (5-15); BLOOD UREA NITROGEN 7 mg/dL (7-17); CHLORIDE 105 mmol/L (98-107); Calcium 9.5 mg/dL (8.4-10.2); Carbon Dioxide 24 mmol/L (22-30); Creatinine 1 0.69 mg/dL (0.52-1.04); EST GLOMERULAR FILTRATION RATE > 60.0 ML/MIN; Glucose 114 mg/dL (74-106); LIPASE 77 U/L (23-300); Potassium 3.5 mmol/L (3.5-5.1); SGOT/AST 27 U/L (14-36); SGPT/ALT 21 U/L (0-35); SODIUM 140 mmol/L (137-145); Total Protein 7.9 g/dL (6.3-8.2)
[2020-11-29 01:00] LABS: Appearance SLIGHTLY CLOUDY (CLEAR); Bacteria RARE /HPF (NEGATIVE); Bilirubin NEGATIVE (NEGATIVE); Blood NEGATIVE Ery/ul (0-5); Epithelial Cells RARE /HPF (FEW); Glucose NEGATIVE (NEGATIVE); Ketones NEGATIVE (NEGATIVE); Leukocyte Esterase NEGATIVE (NEGATIVE); Mucus SLIGHT /HPF (NEGATIVE); Nitrite NEGATIVE (NEGATIVE); Protein,Urine Dip NEGATIVE (Negative); RBC 0-2 /HPF (0-2); Specific Gravity 1.025 (1.005-1.025); Urobilinogen NEGATIVE mg/dL (0-1)
[2020-11-29] MEDS ORDERED: Flagyl 500 MG PO ONE (02:27)
[2020-11-29] MEDS ORDERED: TORAdol 30 mg Injection IV ONE (02:27)
[2020-11-29] MEDS ORDERED: NEOSYNEPHRINE 0.5% NASAL SPRAY/DROPS NS ONE (02:40)
[2020-11-29] MEDS ORDERED: NEOSYNEPHRINE 0.5% NASAL SPRAY/DROPS ONE (02:57)
[2020-11-29] MEDS ORDERED: Flagyl 500 MG ONE (02:58)
[2020-11-29 03:22] VITALS: BP 107/66; PULSE 96; O2SAT 100
--- NOTE | 2020-11-29 07:45 | XRAY ---
Indication: Abdomen and lower flank pain. Multiple contiguous axial images obtained through the abdomen and pelvis without contrast. Comparison: October 07, 2020 Lung bases remain clear. Heart not enlarged. Noncontrasted stomach and bowel loops are nonobstructed. Normal appendix. Fecal stasis improved with mild fecal loading in the rectum. Distal rectum now demonstrates mild circumferential wall thickening, possibly proctitis. New small cul-de-sac fluid presumed physiologic from rupture/leaking cyst. No free air. Gallbladder contracted without gallstones. Remaining liver, gallbladder, pancreas, spleen, adrenal glands, kidneys, ureters, bladder, uterus, and aorta are unremarkable for noncontrast exam. Osseous structures intact. Impression: 1. Distal rectal wall thickening, possibly proctitis. 2. Small cul-de-sac fluid presumed physiologic. Comment: Preliminary interpretation was made by [facility]. No critical discrepancy.
== END 2020-11-29 03:10 | disposition home or self-care (01) ==
LOC: ED 22:44
DX: R10.9 Unspecified abdominal pain (principal); M54.5 Low back pain; Z79.899 Other long term (current) drug therapy
CPT/HCPCS: 36000; 36415; 74176; 80053; 81001; 82150; 83605; 83690; 84702; 84703; 85025; 96360; 99284; A9270-GY

== ENCOUNTER 2020-12-03 01:12 | Emergency (ER) | payer OTHER ==
[2020-12-03] MEDS ORDERED: TORAdol 30 mg Injection IV ONE (02:01)
[2020-12-03] MEDS ORDERED: Zofran 4 MG/2 ML VIAL IV ONE (02:01)
--- NOTE | 2020-12-03 02:01 | ERPHSYRPT ---
- History of Present Illness Historian: patient Exam Limitations: no limitations Patient Subjective Stated Complaint: Patient states " I was here Monday and have been taking the medicine that was prescribed to me and my pain has not gotten any better and I am still vomiting." Triage Nursing Assessment: Patient arrived to ED and ambulated back to room without difficulty. Patient gait steady and no abnormalities noted. Patient A/O times 4. Patient able to follow instructions without difficulty. Lungs clear bilateral A/P throughout. Patient denies any SOB. Patient denies any chest pain. No S/S of respiratory distress noted. Cap refill < 3 seconds. + BS times 4 quads . ABD flat, non-distended. Patient with complaints of pain and facial grimacing when RN palpitated left side. Patient states pain radiated into left side and into lower back. Patient denies any pain or burning upon urination. Urine collected and urine tea colored with no odor present. Patient states she has been drinking lots of water but hasn't been able to keep any food or fluid down since Monday this week. Patient states she has been having this kind of pain now for almost 2 years. Patient denies any trauma or injury to ABD. No bruising or swelling noted. Skin turgor < 3 seconds. Oral mucosa moist. Physician History: 20 yo wf w LLQ pain x 4 days. Pt seen in [place] ER on 11/30/20 w Normal CBC/CMP/CT w fecal stasis-proctitis. She has been having similar pain x 2 yrs since her in 2019. Pain is sharp, 9/10, and nothing makes better or worse. She has had N/V but denies diarrhea. Pt states BM's are painful, and CT demonstrated fecal stasis w mild fecal loading in rectum. Melena/hematochezia/dysuria/hematuria are all denied. Timing/Duration: other (4days/2yrs) Activities at Onset: rest Quality: sharpness, stabbing Abdominal Pain Onset Location: LLQ Pain Radiation: no radiation Severity of Pain-Max: severe Severity of Pain-Current: severe Modifying Factors: Improves With: nothing Associated Symptoms: loss of appetite, vomiting, No back, No chest pain, No diaphoresis, No diarrhea, No fever/chills, No fatigue, No heartburn, No nausea, No neck pain, No rash, No shortness of breath, No syncope, No weakness Previous symptoms: same symptoms as today Allergies/Adverse Reactions: Iodinated Contrast Media Allergy (Severe, Verified 12/03/20 01:23) Swelling aspirin Allergy (Intermediate, Verified 12/03/20:23) Swelling kiwi Allergy (Intermediate, Verified 12/03/20:23) peanut Allergy (Verified 12/03/20:23) acetaminophen [From Theraflu Day-Night Cold,Cough] Adverse Reaction (Mild, Verified 12/03/20:23) Vomiting dextromethorphan [From Theraflu Day-Night Cold,Cough] Adverse Reaction (Mild, Verified 12/03/20:23) Vomiting diphenhydramine [From Theraflu Day-Night Cold,Cough] Adverse Reaction (Mild, Verified 12/03/20:23) Vomiting guaifenesin [From Mucinex] Adverse Reaction (Mild, Verified 12/03/20:23) Nausea and Vomiting ibuprofen [From Advil] Adverse Reaction (Mild, Verified 12/03/20:23) Headache phenylephrine [From Theraflu Day-Night Cold,Cough] Adverse Reaction (Mild, Verified 12/03/20:23) Vomiting Home Medications: Norethindrone 0.35 mg PO DAILY 11/28/20 [History] Hx Tetanus, Diphtheria Vaccination/Date Given: Yes Hx Influenza Vaccination/Date Given: No Hx Pneumococcal Vaccination/Date Given: No Immunizations Up to Date: Yes Travel Risk - International Travel Have you traveled outside of the country in past 3 weeks: No - Coronavirus Screening Are you exhibiting any of the following symptoms?: No Close contact with a COVID-19 positive Pt in past 14-21 Days: No - Vaccine Status Have you recieved a Covid-19 vaccination: No - Review of Systems Constitutional: No Symptoms Eyes: No Symptoms Ears, Nose, & Throat: No Symptoms Respiratory: No Symptoms Cardiac: No Symptoms Abdominal/Gastrointestinal: Abdominal Pain, Nausea, Vomiting, Constipation, No Diarrhea, No Hematemesis, No Hematochezia, No Melena, No Dysphagia, No Appetite Changes Genitourinary Symptoms: No Symptoms Musculoskeletal: No Symptoms Skin: No Symptoms Neurological: No Symptoms Psychological: No Symptoms Endocrine: No Symptoms - Past Medical History Pertinent Past Medical History: Yes Neurological History: No Pertinent History ENT History: No Pertinent History Cardiac History: No Pertinent History Respiratory History: No Pertinent History Endocrine Medical History: No Pertinent History Musculoskeletal History: No Pertinent History GI Medical History: No Pertinent History History: No Pertinent History Psycho-Social History: No Pertinent History Female Reproductive Disorders: No Pertinent History Other Medical History: HX of Ovarian Cysts - Past Surgical History Past Surgical History: Yes Neuro Surgical History: No Pertinent History Cardiac: No Pertinent History Respiratory: No Pertinent History Gastrointestinal: No Pertinent History Genitourinary: No Pertinent History Musculoskeletal: No Pertinent History Female Surgical History: No Pertinent History Other Surgical History: HX Laproscopic procedure to look at ovaries - Social History Smoking Status: Never smoker Exposure to second hand smoke: Yes Drug Use: none Patient Lives Alone: No Significant Family History: no pertinent family hx - Female History Hx Last Menstrual Period: 10/06/20 Hx Now: No - Nursing Vital Signs Nursing Vital Signs: Initial Vital Signs Temperature 98.2 F 12/03/20 01:32 Pulse Rate 85 12/03/20 01:32 Respiratory Rate 18 12/03/20 01:32 Blood Pressure 113/76 12/03/20 01:32 O2 Sat by Pulse Oximetry 96 12/03/20 01:32 Pain Scale Pain Intensity 7 - Physical Exam General Appearance: no apparent distress Eye Exam: PERRL/EOMI, eyes nml inspection Ears, Nose, Throat Exam: normal ENT inspection, TMs normal, pharynx normal, tonsillar exudate Neck Exam: normal inspection, non-tender, supple, No meningismus, No mass, No Brudzinski, No Kernig's Respiratory Exam: normal breath sounds, lungs clear, airway intact, No respiratory distress Cardiovascular Exam: regular rate/rhythm, normal heart sounds, normal peripheral pulses, No murmur Gastrointestinal/Abdomen Exam: soft, normal bowel sounds, tenderness (LLQ w guarding/No rebound) Back Exam: normal inspection, normal range of motion, No CVA tenderness Extremity Exam: normal inspection, normal range of motion Neurologic Exam: alert, oriented x 3, cooperative, hand baseball sewer II-XII nml as tested, normal mood/affect, nml station & gait, sensation nml, No motor deficits, No sensory deficit Skin Exam: normal color Lymphatic Exam: adenopathy SpO2 Interpretation: normal SpO2: 96 O2 Delivery: Room Air - Course Nursing assessment & vital signs reviewed: Yes Ordered Tests: Active Orders 24 hr Category Date Time Status AMYLASE Stat Lab 12/03/20 02:01 Completed CBC W DIFF Stat Lab 12/03/20 02:01 Completed CMP Stat Lab 12/03/20 02:01 Completed HCG,QUALITATIVE URINE Stat Lab 12/03/20 02:00 Completed LIPASE Stat Lab 12/03/20 02:01 Completed UA W/RFX UR CULTURE Stat Lab 12/03/20 02:00 Completed Urine Triage Profile Stat Lab 12/03/20 02:00 Received Medication Summary Discontinued Medications Generic Name Dose Route Start Last Admin Trade Name Gloria PRN Reason Stop Dose Admin Ceftriaxone Sodium/Dextrose 1 g in 50 mls @ 100 mls/hr 12/03/20 02:26 12/03/20 02:29 Rocephin 1 Gm-D5w 50 Ml Bag IV 12/03/20 02:55 100 mls/hr STAT STA 100 mls/hr Administration Ceftriaxone Sodium/Dextrose Confirm 12/03/20 02:27 Rocephin 1 Gm-D5w 50 Ml Bag Administered 12/03/20 02:28 Dose 1 g in 50 mls @ ud IV .STK-MED ONE Ketorolac Tromethamine 30 mg 12/03/20 02:01 12/03/20 02:09 Toradol 30 Mg Injection IV 12/03/20 02:02 30 mg STAT ONE Administration Ketorolac Tromethamine Confirm 12/03/20 02:06 Toradol 30 Mg Injection Administered 12/03/20 02:07 Dose 30 mg .ROUTE .STK-MED ONE Ondansetron HCl 4 mg 12/03/20 02:01 12/03/20 02:09 Zofran 4 Mg/2 Ml Vial IV 12/03/20 02:02 4 mg STAT ONE Administration Ondansetron HCl Confirm 12/03/20 02:06 Zofran 4 Mg/2 Ml Vial Administered 12/03/20 02:07 Dose 4 mg .ROUTE .STK-MED ONE Lab/Rad Data: Laboratory Result Diagrams 12/03/20 02:01 12/03/20 02:01 Laboratory Results 12/03/20 12/03/20 12/03/20 Range/Units 02:01 02:01 02:00 WBC 8.4 (4.0-10.5) K/mm3 RBC 4.73 (4.1-5.4) M/mm3 Hgb 13.9 (12.0-16.0) gm/dl Hct 41.4 (35-47) % MCV 87.5 (78-100) fl MCH 29.4 (26-32) pg MCHC 33.6 (32-36) g/dl RDW 13.5 (11.5-14.0) % Plt Count 245 (150-450) K/mm3 MPV 10.1 (7.5-11.0) fl Gran % 63.4 (36.0-66.0) % Eos # (Auto) 0.08 (0-0.5) Absolute Lymphs (auto) 2.31 (1.0-4.6) Absolute Monos (auto) 0.65 (0.0-1.3) Lymphocytes % 27.6 (24.0-44.0) % Monocytes % 7.8 (0.0-12.0) % Eosinophils % 1.0 (0.00-5.0) % Basophils % 0.2 (0.0-0.4) % Absolute Granulocytes 5.31 (1.4-6.9) Basophils # 0.02 (0-0.4) Sodium 138 (137-145) mmol/L Potassium 3.6 (3.5-5.1) mmol/L Chloride 103 (98-107) mmol/L Carbon Dioxide 23 (22-30) mmol/L Anion Gap 15.2 H (5-15) MEQ/L BUN 8 (7-17) mg/dL Creatinine 0.73 (0.52-1.04) mg/dL Estimated GFR > 60.0 ML/MIN Glucose 94 (74-106) mg/dL Calcium 9.6 (8.4-10.2) mg/dL Total Bilirubin 1.10 (0.2-1.3) mg/dL AST 55 H (14-36) U/L ALT 42 H (0-35) U/L Alkaline Phosphatase 64 (38-126) U/L Serum Total Protein 8.0 (6.3-8.2) g/dL Albumin 4.9 (3.5-5.0) g/dL Amylase 91 (30-110) U/L Lipase 72 (23-300) U/L Urine Color (YELLOW) Urine Appearance (CLEAR) Urine pH (5-6) Ur Specific [place] (1.005-1.025) Urine Protein (Negative) Urine Ketones (NEGATIVE) Urine Blood (0-5) Conor/ul Urine Nitrite (NEGATIVE) Urine Bilirubin (NEGATIVE) Urine Urobilinogen (0-1) mg/dL Ur Leukocyte Esterase (NEGATIVE) Urine WBC (Auto) (0-5) /HPF Urine RBC (Auto) (0-2) /HPF U Epithel Cells (Auto) (FEW) /HPF Urine Bacteria (Auto) (NEGATIVE) /HPF Urine Mucus (Auto) (NEGATIVE) /HPF Urine Culture Reflexed (NO) Urine Glucose (NEGATIVE) mg/dL Urine HCG, Qual NEGATIVE (Negative) 12/03/20 Range/Units 02:00 WBC (4.0-10.5) K/mm3 RBC (4.1-5.4) M/mm3 Hgb (12.0-16.0) gm/dl Hct (35-47) % MCV (78-100) fl MCH (26-32) pg MCHC (32-36) g/dl RDW (11.5-14.0) % Plt Count (150-450) K/mm3 MPV (7.5-11.0) fl Gran % (36.0-66.0) % Eos # (Auto) (0-0.5) Absolute Lymphs (auto) (1.0-4.6) Absolute Monos (auto) (0.0-1.3) Lymphocytes % (24.0-44.0) % Monocytes % (0.0-12.0) % Eosinophils % (0.00-5.0) % Basophils % (0.0-0.4) % Absolute Granulocytes (1.4-6.9) Basophils # (0-0.4) Sodium (137-145) mmol/L Potassium (3.5-5.1) mmol/L Chloride (98-107) mmol/L Carbon Dioxide (22-30) mmol/L Anion Gap (5-15) MEQ/L BUN (7-17) mg/dL Creatinine (0.52-1.04) mg/dL Estimated GFR ML/MIN Glucose (74-106) mg/dL Calcium (8.4-10.2) mg/dL Total Bilirubin (0.2-1.3) mg/dL AST (14-36) U/L ALT (0-35) U/L Alkaline Phosphatase (38-126) U/L Serum Total Protein (6.3-8.2) g/dL Albumin (3.5-5.0) g/dL Amylase (30-110) U/L Lipase (23-300) U/L Urine Color ANGELO (YELLOW) Urine Appearance SLIGHTLY CLOUDY (CLEAR) Urine pH 5.0 (5-6) Ur Specific [place] 1.021 (1.005-1.025) Urine Protein NEGATIVE (Negative) Urine Ketones NEGATIVE (NEGATIVE) Urine Blood NEGATIVE (0-5) Conor/ul Urine Nitrite NEGATIVE (NEGATIVE) Urine Bilirubin NEGATIVE (NEGATIVE) Urine Urobilinogen NEGATIVE (0-1) mg/dL Ur Leukocyte Esterase MODERATE (NEGATIVE) Urine WBC (Auto) 6-10 (0-5) /HPF Urine RBC (Auto) 3-5 (0-2) /HPF U Epithel Cells (Auto) RARE (FEW) /HPF Urine Bacteria (Auto) RARE (NEGATIVE) /HPF Urine Mucus (Auto) SLIGHT (NEGATIVE) /HPF Urine Culture Reflexed NO (NO) Urine Glucose NEGATIVE (NEGATIVE) mg/dL Urine HCG, Qual (Negative) - Progress Progress: improved Progress Note: 12/03/20 02:28 Pain improved w 30mg IV Toradol/4mg IV Zofran 1gm IV rocephin for UTI Counseled pt/family regarding: lab results, diagnosis, need for follow-up - Departure Departure Disposition: Home Clinical Impression: Abdominal pain, UTI (urinary tract infection) Condition: Stable Critical Care Time: No Referrals: MINAL REINOSO MD [Primary Care Provider] - Instructions: Urinary Tract Infection, Adult (DC), Acute Abdomen (Belly Pain), Adult (DC) Additional Instructions: Continue w Flagyl Start a mild laxative-prescription for lactulose sent to pharmacy Follow up with Dr. Villegas or family MD Return to ER for increasing pain or temperature greater than 100.5 Prescriptions: Lactulose [Enulose] 10 gm PO BID PRN #150 ml PRN Reason: Constipation
[2020-12-03 02:05] LABS: Absolute Neutrophil Ct (ANC) 5.31 (1.4-6.9); BASOPHIL % 0.2 % (0.0-0.4); Basophil (Absolute #) 0.02 (0-0.4); Eosinophil (Absolute #) 0.08 (0-0.5); Hematocrit 41.4 % (35-47); Hemoglobin 13.9 gm/dl (12.0-16.0); Lymphocyte (Absolute #) 2.31 (1.0-4.6); Lymphocytes % 27.6 % (24.0-44.0); Mean Cell Volume 87.5 fl (78-100); Mean Corpuscular Hemoglobin 29.4 pg (26-32); Mean Corpuscular Hgb Concent. 33.6 g/dl (32-36); Mean Platelet Volume 10.1 fl (7.5-11.0); Monocyte (Absolute #) 0.65 (0.0-1.3); Monocytes % 7.8 % (0.0-12.0); Neutrophil % 63.4 % (36.0-66.0); Platelet Count 245 K/mm3 (150-450); Red Blood Count 4.73 M/mm3 (4.1-5.4); Red Cell Distribution Width 13.5 % (11.5-14.0); White Blood Count 8.4 K/mm3 (4.0-10.5)
[2020-12-03] MEDS ORDERED: Zofran 4 MG/2 ML VIAL ONE (02:06)
[2020-12-03] MEDS ORDERED: TORAdol 30 mg Injection ONE (02:06)
[2020-12-03 02:09] LABS: Appearance SLIGHTLY CLOUDY (CLEAR); Bacteria RARE /HPF (NEGATIVE); Bilirubin NEGATIVE (NEGATIVE); Blood NEGATIVE Ery/ul (0-5); Epithelial Cells RARE /HPF (FEW); Glucose NEGATIVE (NEGATIVE); Ketones NEGATIVE (NEGATIVE); Leukocyte Esterase MODERATE (NEGATIVE); Mucus SLIGHT /HPF (NEGATIVE); Nitrite NEGATIVE (NEGATIVE); Protein,Urine Dip NEGATIVE (Negative); Specific Gravity 1.021 (1.005-1.025); Urobilinogen NEGATIVE mg/dL (0-1)
[2020-12-03 02:16] LABS: ALBUMIN 4.9 g/dL (3.5-5.0); ALKALINE PHOSPHATASE 64 U/L (38-126); AMYLASE 91 U/L (30-110); ANION GAP 15.2 MEQ/L (5-15); BLOOD UREA NITROGEN 8 mg/dL (7-17); CHLORIDE 103 mmol/L (98-107); Calcium 9.6 mg/dL (8.4-10.2); Carbon Dioxide 23 mmol/L (22-30); Creatinine 1 0.73 mg/dL (0.52-1.04); EST GLOMERULAR FILTRATION RATE > 60.0 ML/MIN; Glucose 94 mg/dL (74-106); LIPASE 72 U/L (23-300); Potassium 3.6 mmol/L (3.5-5.1); SGOT/AST 55 U/L (14-36); SGPT/ALT 42 U/L (0-35); SODIUM 138 mmol/L (137-145)
[2020-12-03 02:21] LABS: Amphetamine,Urine NEGATIVE (NEGATIVE); Barbiturate,Urine NEGATIVE (NEGATIVE); Benzodiazepine,Urine NEGATIVE (NEGATIVE); Methadone,Urine NEGATIVE (NEGATIVE); Opiate,Urine NEGATIVE (NEGATIVE); PCP,Urine NEGATIVE (NEGATIVE); THC,Urine NEGATIVE (NEGATIVE)
[2020-12-03] MEDS ORDERED: ROCEPHIN 1 Gm-D5w 50 ml Bag** 1 G/50 ML IVPB IV STA (02:26)
[2020-12-03] MEDS ORDERED: ROCEPHIN 1 Gm-D5w 50 ml Bag** 1 G/50 ML IVPB IV ONE (02:27)
[2020-12-03 02:47] VITALS: BP 111/65; PULSE 83
[2020-12-03 03:54] VITALS: O2SAT 96
== END 2020-12-03 02:57 | disposition home or self-care (01) ==
LOC: ED 01:12
DX: R10.32 Left lower quadrant pain (principal); N39.0 Urinary tract infection, site not specified; R11.2 Nausea with vomiting, unspecified; K59.00 Constipation, unspecified; Z79.899 Other long term (current) drug therapy
CPT/HCPCS: 36415; 80053; 80307; 81001; 82150; 83690; 84703; 85025; 96365; 96374; 96375; 99284; J0696; J1885; J2405

== ENCOUNTER 2020-12-20 20:50 | Emergency (ER) | payer OTHER ==
[2020-12-20 21:06] VITALS: O2SAT 99
[2020-12-20] MEDS ORDERED: Reglan 10 MG ONE ×2 (21:18→21:19)
[2020-12-20] MEDS ORDERED: BENADRYL 25 MG CAPSULE ONE (21:18)
[2020-12-20] MEDS ORDERED: Reglan 10 MG PO STA (21:20)
[2020-12-20] MEDS ORDERED: BENADRYL 25 MG CAPSULE PO ONE (21:20)
[2020-12-20] MEDS ORDERED: TYLENOL EXTRA STRENGTH 500 MG PO PRN (21:20)
[2020-12-20] MEDS ORDERED: TYLENOL EXTRA STRENGTH 500 MG ONE (21:22)
--- NOTE | 2020-12-20 22:16 | ERPHSYRPT ---
- History of Present Illness Time Seen by Provider: 12/20/20 20:58 Source: patient Exam Limitations: no limitations Patient Subjective Stated Complaint: Patient states " I was out fishing and was catching up with friends and I started having a headache and it has continued to get worse" Triage Nursing Assessment: Patient arrived to ED and ambulated back to room without difficulty. Patient A/O times 4. Patient stated she has puked undigested food times 4 since 1900. Patient with no vomiting upon entering ER. Patient states she has been told she looks like she is and was told to come to ER and just found out what was wrong. Lungs clear bilateral A/P throughout. Patient denies any SOB. Patient denies any chest pain. + BS times 4 quads. ABD round, non-distended. Patient states she has had some ABD pain. Patient denies any pain or burning upon urination. Bilateral hand senior buyer planner strong and regular. Bilateral pupils brisk and reactive. Patient denies any visual disturbances. Neck ROM WNL. Patient denies any trauma or injury to neck or head. No abnormalities noted to head upon touch/palpitation. Physician History: 20 years old female presented in the ER with chief complaint headache and also wants to get herself checked for being . Patient reports she had a headache frontal yesterday dull aching to sharp moderate intensity without any significant aggravating or relieving factors, this morning she woke up and was feeling better, was fishing outside and started to feel headache again with some nausea and vomited 3-4 times prior to arrival nonprojectile, nonbilious with no hematemesis. No neck pain. No fever or chills reported. Patient reports headache similar to previous episodes. Denies any numbness tingling or focal weakness. No visual symptoms. Patient also reports tenderness in the breast and abdominal bloating sensation and thinks she might be although she is taking control pills. Timing/Duration: yesterday, intermittent, sudden, improved Quality: sharpness Head Pain Location: frontal Severity of Pain-Max: moderate Severity of Pain-Current: moderate Recent Head Trauma: no recent headache/trauma Associated Symptoms: nausea/vomiting, No dizziness, No fatigue, No facial pain, No fever/chills, No flushing, No light-headedness, No loss of consciousness, No nasal congestion, No nasal drainage, No neck pain, No numbness in legs/feet, No rash, No sweating, No scotoma, No seizures, No sinus infection, No sensitive to light, No speech problems, No stiff neck, No trouble walking, No vision changes, No visual disturbance, No weakness Previous symptoms: same symptoms as today Allergies/Adverse Reactions: Iodinated Contrast Media Allergy (Severe, Verified 12/20/20 21:06) Swelling aspirin Allergy (Intermediate, Verified 12/20/20 21:06) Swelling kiwi Allergy (Intermediate, Verified 12/20/20 21:06) peanut Allergy (Verified 12/20/20 21:06) acetaminophen [From Theraflu Day-Night Cold,Cough] Adverse Reaction (Mild, Verif ied 12/20/20 21:06) Vomiting dextromethorphan [From Theraflu Day-Night Cold,Cough] Adverse Reaction (Mild, Verified 12/20/20 21:06) Vomiting diphenhydramine [From Theraflu Day-Night Cold,Cough] Adverse Reaction (Mild, Verified 12/20/20 21:06) Vomiting guaifenesin [From Mucinex] Adverse Reaction (Mild, Verified 12/20/20 21:06) Nausea and Vomiting ibuprofen [From Advil] Adverse Reaction (Mild, Verified 12/20/20 21:06) Headache phenylephrine [From Theraflu Day-Night Cold,Cough] Adverse Reaction (Mild, Verified 12/20/20 21:06) Vomiting Home Medications: Norethindrone 0.35 mg PO DAILY 11/28/20 [History] Hx Tetanus, Diphtheria Vaccination/Date Given: Yes Hx Influenza Vaccination/Date Given: No Hx Pneumococcal Vaccination/Date Given: No Immunizations Up to Date: Yes Travel Risk - International Travel Have you traveled outside of the country in past 3 weeks: No - Coronavirus Screening Are you exhibiting any of the following symptoms?: No Close contact with a COVID-19 positive Pt in past 14-21 Days: No - Vaccine Status Have you recieved a Covid-19 vaccination: No - Review of Systems Constitutional: No Symptoms Eyes: No Symptoms Ears, Nose, & Throat: No Symptoms Respiratory: No Symptoms Cardiac: No Symptoms Abdominal/Gastrointestinal: Nausea, Vomiting, No Abdominal Pain Genitourinary Symptoms: No Symptoms Musculoskeletal: No Symptoms Skin: No Symptoms Neurological: Headache Psychological: Anxiety Endocrine: No Symptoms Hematologic/Lymphatic: No Symptoms - Past Medical History Pertinent Past Medical History: Yes Neurological History: No Pertinent History ENT History: No Pertinent History Cardiac History: No Pertinent History Respiratory History: No Pertinent History Endocrine Medical History: No Pertinent History Musculoskeletal History: No Pertinent History GI Medical History: No Pertinent History History: No Pertinent History Psycho-Social History: No Pertinent History Female Reproductive Disorders: No Pertinent History Other Medical History: HX of Ovarian Cysts - Past Surgical History Past Surgical History: Yes Neuro Surgical History: No Pertinent History Cardiac: No Pertinent History Respiratory: No Pertinent History Gastrointestinal: No Pertinent History Genitourinary: No Pertinent History Musculoskeletal: No Pertinent History Female Surgical History: No Pertinent History Other Surgical History: HX Laproscopic procedure to look at ovaries - Social History Smoking Status: Never smoker Exposure to second hand smoke: No Drug Use: none Patient Lives Alone: No Significant Family History: no pertinent family hx - Female History Hx Last Menstrual Period: 12/07/20 Hx Now: No - Nursing Vital Signs Nursing Vital Signs: Initial Vital Signs Temperature 98.5 F 12/20/20 21:02 Pulse Rate 100 H 12/20/20 21:02 Respiratory Rate 18 12/20/20 21:02 Blood Pressure 122/82 12/20/20 21:02 O2 Sat by Pulse Oximetry 99 12/20/20 21:02 Pain Scale Pain Intensity 9 - Physical Exam General Appearance: no apparent distress, alert, anxiety Eye Exam: PERRL/EOMI, eyes nml inspection Ears, Nose, Throat Exam: normal ENT inspection, TMs normal, pharynx normal Neck Exam: normal inspection, non-tender, supple, full range of motion, No meningismus Respiratory Exam: normal breath sounds, lungs clear Cardiovascular Exam: regular rate/rhythm, normal heart sounds Gastrointestinal/Abdominal Exam: soft, normal bowel sounds, No tenderness Back Exam: normal inspection, normal range of motion Extremity Exam: normal inspection, normal range of motion, pelvis stable Mental Status Exam: alert, oriented x 3, cooperative electrical systems drafter Exam: normal hearing, normal speech, PERRL Coordination/Gait Exam: normal finger to nose, normal gait, normal cerebellar function, negative Romberg's sign Motor/Sensory Exam: no motor deficit, no sensory deficit, no pronator drift, negative Babinski's sign DTR Exam: bicep (R): 2+, bicep (L): 2+, knee (R): 2+, knee (L): 2+ Skin Exam: normal color SpO2 Interpretation: normal SpO2: 99 O2 Delivery: Room Air Ordered Tests: Active Orders 24 hr Category Date Time Status HCG,QUALITATIVE URINE Stat Lab 12/20/20 20:59 Completed Medication Summary Generic Name Dose Route Start Last Admin Trade Name Gloria PRN Reason Stop Dose Admin Acetaminophen 1,000 mg 12/20/20 21:20 12/20/20 21:24 Tylenol Extra Strength 500 Mg PO 01/19/21 21:19 1,000 mg Q4H PRN PRN Administration HEADACHE Discontinued Medications Generic Name Dose Route Start Last Admin Trade Name Frebre PRN Reason Stop Dose Admin Diphenhydramine HCl Confirm 12/20/20 21:18 Benadryl 25 Mg Capsule Administered 12/20/20 21:19 Dose 25 mg .ROUTE .STK-MED ONE Diphenhydramine HCl 25 mg 12/20/20 21:20 12/20/20 21:22 Benadryl 25 Mg Capsule PO 12/20/20 21:21 25 mg STAT ONE Administration Metoclopramide HCl Confirm 12/20/20 21:18 Reglan 10 Mg Administered 12/20/20 21:19 Dose 10 mg .ROUTE .STK-MED ONE Metoclopramide HCl Confirm 12/20/20 21:19 Reglan 10 Mg Administered 12/20/20 21:20 Dose 10 mg .ROUTE .STK-MED ONE Metoclopramide HCl 10 mg 12/20/20 21:20 12/20/20 21:22 Reglan 10 Mg PO 12/20/20 21:21 10 mg STAT STA Administration Lab/Rad Data: Laboratory Results 12/20/20 Range/Units 20:59 Urine HCG, Qual NEGATIVE (Negative) - Progress Progress: improved Air Movement: good Progress Note: 12/20/20 22:15 She has negative test. Patient want IVR blood. Once on oral medications to relieve her headache. Nonfocal neuro exam. Similar to previous episode does not think this is the worst headache of her life. Could be related to/exacerbated by staying outside in the heat. Initially she did not want anything for her headache and wanted to go home later on decided to have some oral medication. Given Tylenol, Reglan and Benadryl, on reevaluation feeling better. Discussed signs symptoms of worsening needing return to ER which he seems understanding.'s Blood Culture(s) Obtained: No Antibiotics given: No Counseled pt/family regarding: diagnosis, need for follow-up - Departure Departure Disposition: Home Clinical Impression: Headache Qualifiers: Headache type: unspecified Headache chronicity pattern: unspecified pattern Intractability: not intractable Qualified Code(s): R51.9 - Headache, unspecified Condition: Stable Critical Care Time: No Referrals: DOCTOR,NO FAMILY [Primary Care Provider] - NELLY SCHRADER DO [ACTIVE STAFF] - (1-2 days for reevaluation) Instructions: Headache, Adult (DC) Additional Instructions: Continue with your control pills. Take Tylenol/ibuprofen as needed for headache. Follow-up with primary care for reevaluation. Return to ER for intractable headache, numbness tingling weakness, intractable vomiting, fever chills or neck pain etc.
[2020-12-20 22:17] VITALS: BP 122/77; PULSE 92
== END 2020-12-20 22:18 | disposition home or self-care (01) ==
LOC: ED 20:50
DX: R51.9 Headache, unspecified (principal)
CPT/HCPCS: 84703; 99283; A9270-GY

== ENCOUNTER 2021-03-03 21:04 | Emergency (ER) | payer OTHER ==
[2021-03-03] MEDS ORDERED: XYLOCAINE 1% HCL 20 ML MDV IJ ONE (21:05)
[2021-03-03 21:29] VITALS: O2SAT 98
[2021-03-03] MEDS ORDERED: HYDROCODONE-ACETAMIN 10-325 MG PO ONE (22:16)
--- NOTE | 2021-03-03 23:03 | ERPHSYRPT ---
- History of Present Illness Source: patient Exam Limitations: no limitations Patient Subjective Stated Complaint: Patient states " I think my bladder is going to fall out." Triage Nursing Assessment: Patient arrived to ED. RN assisted patient in W/C back to room. Patient A/O times 4. Patient able to follow instructions without difficulty. Patient states for the last 2 weeks she has been having sharp pains in vaginal area and up into ABD. Patient states it bautista so bad when she pees and she states it feels like her bladder is going to fall out. + BS times 4 quads. ABD flat, non-distended. Patient with tenderness when ABD palpitated. Patient last BM 03/03/21. Patient denies any N/V. Patient denies any loose stools. Upon visual inspection right víctor minora noted with swelling. Vaginal area red in color and patient states she has been having thick white cottage ch eese discharge. Patient states she is miserbale and she cannot quick itching. Patient denies any sexual activity within 48 hours. Patient denies any trauma or injury to vaginal area. Patient states she seen PCP on 02/25/21 and was DX with UTI. I started taking ATB (Macrobid) on Monday02/26/21. Patient stated she had Ultrasounds down here at Hospital yesterday also. Physician History: 20 yo wf w vaginal rash/edema x [address] Medina last week and started on Macrobid. She has dysuria due to her rash. Pt denies frequency//N/V/D/vag dc. Timing/Duration: other (5 days) Activites at Onset: rest Quality: burning Onset Location: vaginal Pain Radiation: none Severity of Pain-Max: moderate Severity of Pain-Current: moderate Prior abdominal problems: similar symptoms, UTI Sexual intercourse history: other (Active) Modifying Factors: Improves With: urinating Associated Symptoms: dysuria, No abdominal pain, No fever, No chills, No diaphoresis, No nausea, No vomiting, No nocturia, No polyuria, No urinary frequency, No , No loss of bladder control, No lower back pain, No lumps, No mass, No swelling, No syncope, No vaginal discharge, No vaginal fluid leakage Allergies/Adverse Reactions: Iodinated Contrast Media Allergy (Severe, Verified 03/03/21 21:34) Swelling aspirin Allergy (Intermediate, Verified 03/03/21 21:34) Swelling kiwi Allergy (Intermediate, Verified 03/03/21 21:34) peanut Allergy (Verified 03/03/21 21:34) acetaminophen [From Theraflu Day-Night Cold,Cough] Adverse Reaction (Mild, Verified 03/03/21 21:34) Vomiting dextromethorphan [From Theraflu Day-Night Cold,Cough] Adverse Reaction (Mild, Verified 03/03/21 21:34) Vomiting diphenhydramine [From Theraflu Day-Night Cold,Cough] Adverse Reaction (Mild, Verified 03/03/21 21:34) Vomiting guaifenesin [From Mucinex] Adverse Reaction (Mild, Verified 03/03/21 21:34) Nausea and Vomiting ibuprofen [From Advil] Adverse Reaction (Mild, Verified 03/03/21 21:34) Headache phenylephrine [From Theraflu Day-Night Cold,Cough] Adverse Reaction (Mild, Verified 03/03/21 21:34) Vomiting Home Medications: Cyanocobalamin (Vitamin B-12) [Vitamin B-12] 1,000 mcg PO DAILY 03/03/21 [History] Nitrofurantoin Macrocrystal [Nitrofurantoin] 100 mg PO BID 03/03/21 [History] Hx Tetanus, Diphtheria Vaccination/Date Given: Yes Hx Influenza Vaccination/Date Given: No Hx Pneumococcal Vaccination/Date Given: No Travel Risk - International Travel Have you traveled outside of the country in past 3 weeks: No - Coronavirus Screening Are you exhibiting any of the following symptoms?: No Close contact with a COVID-19 positive Pt in past 14-21 Days: No - Vaccine Status Have you recieved a Covid-19 vaccination: No - Review of Systems Constitutional: No Symptoms Eyes: No Symptoms Ears, Nose, & Throat: No Symptoms Respiratory: No Symptoms Cardiac: No Symptoms Abdominal/Gastrointestinal: No Symptoms Genitourinary Symptoms: No Symptoms, Dysuria Musculoskeletal: No Symptoms Skin: No Symptoms, Rash Neurological: No Symptoms Psychological: No Symptoms Endocrine: No Symptoms Hematologic/Lymphatic: No Symptoms Immunological/Allergic: No Symptoms - Past Medical History Pertinent Past Medical History: Yes Neurological History: No Pertinent History ENT History: No Pertinent History Cardiac History: No Pertinent History Respiratory History: No Pertinent History Endocrine Medical History: No Pertinent History Musculoskeletal History: No Pertinent History GI Medical History: No Pertinent History History: No Pertinent History Psycho-Social History: No Pertinent History Female Reproductive Disorders: No Pertinent History Other Medical History: HX of Ovarian Cysts - Past Surgical History Past Surgical History: Yes Neuro Surgical History: No Pertinent History Cardiac: No Pertinent History Respiratory: No Pertinent History Gastrointestinal: No Pertinent History Genitourinary: No Pertinent History Musculoskeletal: No Pertinent History Female Surgical History: No Pertinent History Other Surgical History: HX Laproscopic procedure to look at ovaries - Social History Smoking Status: Never smoker Exposure to second hand smoke: No Drug Use: none Patient Lives Alone: No Significant Family History: no pertinent family hx - Female History Hx Last Menstrual Period: 02/07/21 Hx Now: No - Nursing Vital Signs Nursing Vital Signs: Initial Vital Signs Temperature 98.4 F 03/03/21 21:04 Pulse Rate 104 H 03/03/21 21:04 Respiratory Rate 18 03/03/21 21:04 Blood Pressure 154/85 03/03/21 21:04 O2 Sat by Pulse Oximetry 98 03/03/21 21:04 Pain Scale Pain Intensity 3 Hypertensive/tachycardic - Physical Exam General Appearance: no apparent distress Eye Exam: PERRL/EOMI, eyes nml inspection Ears, Nose, Throat Exam: normal ENT inspection, TMs normal, pharynx normal, moist mucous membranes Neck Exam: normal inspection, non-tender, supple, full range of motion, No meningismus, No mass, No Brudzinski Respiratory Exam: normal breath sounds, lungs clear, airway intact Cardiovascular Exam: tachycardia (Mild), No murmur Gastrointestinal/Abdomen Exam: soft, normal bowel sounds, No tenderness Pelvic Exam: other (Erythematous labia w edematous R labia minora/No abscess) Extremity Exam: normal inspection, normal range of motion Neurologic Exam: alert, oriented x 3, cooperative, medical sales consultant II-XII nml as tested, normal mood/affect Skin Exam: normal color, warm Lymphatic Exam: No adenopathy SpO2 Interpretation: normal SpO2: 98 O2 Delivery: Room Air - Course Nursing assessment & vital signs reviewed: Yes Ordered Tests: Active Orders 24 hr Category Date Time Status CULTURE,URINE Stat Lab 03/03/21 22:45 Received HCG,QUALITATIVE URINE Stat Lab 03/03/21 22:45 Completed UA W/RFX UR CULTURE Stat Lab 03/03/21 22:45 Completed Urine Triage Profile Stat Lab 03/03/21 22:45 Completed Medication Summary Discontinued Medications Generic Name Dose Route Start Last Admin Trade Name Gloria PRN Reason Stop Dose Admin Hydrocodone Bitart/Acetaminophen 1 tablet 03/03/21 22:16 03/03/21 22:33 Hydrocodone-Acetamin 10-325 Mg PO 03/03/21 22:17 1 tablet ONCE ONE Administration Ceftriaxone Sodium Confirm 03/03/21 23:34 Rocephin 1000 Mg Inj Administered 03/03/21 23:35 Dose 1,000 mg .ROUTE .STK-MED ONE Ceftriaxone Sodium 1,000 mg 03/03/21 23:34 03/03/21 23:46 Rocephin 1000 Mg Inj IM 03/03/21 23:35 1,000 mg STAT ONE Administration Fluconazole 150 mg 03/03/21 23:35 03/03/21 23:48 Diflucan PO 03/03/21 23:36 150 mg ONCE ONE Administration Fluconazole Confirm 03/03/21 23:36 Diflucan 100 Mg Administered 03/03/21 23:37 Dose 200 mg .ROUTE .ViVu-MED ONE Lab/Rad Data: Laboratory Results 03/04/21 03/03/21 03/03/21 Range/Units 00:04 22:45 22:45 Urine Color (YELLOW) Urine Appearance (CLEAR) Urine pH (5-6) Ur Specific [place] (1.005-1.025) Urine Protein (Negative) Urine Ketones (NEGATIVE) Urine Blood (0-5) Conor/ul Urine Nitrite (NEGATIVE) Urine Bilirubin (NEGATIVE) Urine Urobilinogen (0-1) mg/dL Ur Leukocyte Esterase (NEGATIVE) Urine WBC (Auto) (0-5) /HPF Urine RBC (Auto) (0-2) /HPF U Epithel Cells (Auto) (FEW) /HPF Urine Bacteria (Auto) (NEGATIVE) /HPF Urine Mucus (Auto) (NEGATIVE) /HPF Urine Culture Reflexed (NO) Urine Glucose (NEGATIVE) mg/dL Urine HCG, Qual NEGATIVE (Negative) Urine Opiates Level NEGATIVE (NEGATIVE) Ur Methadone NEGATIVE (NEGATIVE) Urine Barbiturates NEGATIVE (NEGATIVE) Ur Phencyclidine (PCP) NEGATIVE (NEGATIVE) Urine Amphetamine NEGATIVE (NEGATIVE) U Benzodiazepine Level NEGATIVE (NEGATIVE) Urine Cocaine NEGATIVE (NEGATIVE) Urine Marijuana (THC) NEGATIVE (NEGATIVE) Chlamydia DNA Probe NOT DETECTED (NEGATIVE) N.gonorrhoeae DNA Probe NOT DETECTED (NEGATIVE) 03/03/21 Range/Units 22:45 Urine Color STRAW (YELLOW) Urine Appearance SLIGHTLY CLOUDY (CLEAR) Urine pH 6.0 (5-6) Ur Specific [place] 1.005 (1.005-1.025) Urine Protein NEGATIVE (Negative) Urine Ketones TRACE (NEGATIVE) Urine Blood MODERATE (0-5) Conor/ul Urine Nitrite NEGATIVE (NEGATIVE) Urine Bilirubin NEGATIVE (NEGATIVE) Urine Urobilinogen NEGATIVE (0-1) mg/dL Ur Leukocyte Esterase LARGE (NEGATIVE) Urine WBC (Auto) 26-50 (0-5) /HPF Urine RBC (Auto) 3-5 (0-2) /HPF U Epithel Cells (Auto) NONE (FEW) /HPF Urine Bacteria (Auto) RARE (NEGATIVE) /HPF Urine Mucus (Auto) SLIGHT (NEGATIVE) /HPF Urine Culture Reflexed YES (NO) Urine Glucose NEGATIVE (NEGATIVE) mg/dL Urine HCG, Qual (Negative) Urine Opiates Level (NEGATIVE) Ur Methadone (NEGATIVE) Urine Barbiturates (NEGATIVE) Ur Phencyclidine (PCP) (NEGATIVE) Urine Amphetamine (NEGATIVE) U Benzodiazepine Level (NEGATIVE) Urine Cocaine (NEGATIVE) Urine Marijuana (THC) (NEGATIVE) Chlamydia DNA Probe (NEGATIVE) N.gonorrhoeae DNA Probe (NEGATIVE) - Progress Progress Note: 03/03/21 23:37 Norco10 po x1 1gm IM Rocephin Diflucan 150mg po x1 Counseled pt/family regarding: lab results, diagnosis, need for follow-up - Departure Departure Disposition: Home Clinical Impression: UTI (urinary tract infection), Vaginal candidiasis Condition: Good Critical Care Time: No Referrals: NELLY MEDINA DO [Primary Care Provider] - Instructions: Urinary Tract Infection, Adult (DC), Vaginal Yeast Infection (DC) Additional Instructions: Follow up with Dr. Medina in 1-2 days Continue Macrobid until urine culture comes back Use an over the counter cream on area, like Monostat Return to ER as needed Prescriptions: Fluconazole [Diflucan ] 150 mg PO DAILY 3 Days tablet
[2021-03-03 23:07] LABS: Appearance SLIGHTLY CLOUDY (CLEAR); Bacteria RARE /HPF (NEGATIVE); Bilirubin NEGATIVE (NEGATIVE); Blood MODERATE Ery/ul (0-5); Glucose NEGATIVE (NEGATIVE); Ketones TRACE (NEGATIVE); Leukocyte Esterase LARGE (NEGATIVE); Mucus SLIGHT /HPF (NEGATIVE); Nitrite NEGATIVE (NEGATIVE); Protein,Urine Dip NEGATIVE (Negative); Specific Gravity 1.005 (1.005-1.025); Urobilinogen NEGATIVE mg/dL (0-1); WBC 26-50 /HPF (0-5)
[2021-03-03 23:17] LABS: Amphetamine,Urine NEGATIVE (NEGATIVE); Barbiturate,Urine NEGATIVE (NEGATIVE); Benzodiazepine,Urine NEGATIVE (NEGATIVE); Cocaine,Urine NEGATIVE (NEGATIVE); Methadone,Urine NEGATIVE (NEGATIVE); Opiate,Urine NEGATIVE (NEGATIVE); PCP,Urine NEGATIVE (NEGATIVE); THC,Urine NEGATIVE (NEGATIVE)
[2021-03-03] MEDS ORDERED: Rocephin 1000 MG INJ IM ONE (23:34)
[2021-03-03] MEDS ORDERED: Rocephin 1000 MG INJ ONE (23:34)
[2021-03-03] MEDS ORDERED: DIFLUCAN PO ONE (23:35)
[2021-03-03] MEDS ORDERED: Diflucan 100 MG ONE (23:36)
[2021-03-04 00:05] VITALS: BP 128/83; PULSE 77
[2021-03-04 01:50] LABS: CHLAMYDIA DNA NOT DETECTED (NEGATIVE); GC DNA Probe NOT DETECTED (NEGATIVE)
== END 2021-03-04 00:15 | disposition home or self-care (01) ==
LOC: ED 21:04
DX: N39.0 Urinary tract infection, site not specified (principal); B37.3 Candidiasis of vulva and vagina
CPT/HCPCS: 80307; 81001; 84703; 87086; 87491; 87591; 96372; 99284; J0696; A9270-GY

== ENCOUNTER 2021-03-24 22:47 | Emergency (ER) | payer OTHER ==
[2021-03-24 23:04] VITALS: O2SAT 98
[2021-03-24] MEDS ORDERED: MORPHINE SULFATE 2 MG INJ IV ONE (23:18)
[2021-03-24] MEDS ORDERED: Sodium Chloride 0.9% 1000 ML 1,000 ML IV SCH (23:30)
[2021-03-24 23:44] LABS: BASOPHIL % 0.1 % (0.0-0.4); Basophil (Absolute #) 0.01 (0-0.4); Eosinophil % 0.9 % (0.00-5.0); Eosinophil (Absolute #) 0.06 (0-0.5); Hematocrit 39.7 % (35-47); Hemoglobin 13.4 gm/dl (12.0-16.0); Lymphocyte (Absolute #) 2.14 (1.0-4.6); Lymphocytes % 30.7 % (24.0-44.0); Mean Cell Volume 88.4 fl (78-100); Mean Corpuscular Hemoglobin 29.8 pg (26-32); Mean Corpuscular Hgb Concent. 33.8 g/dl (32-36); Mean Platelet Volume 10.1 fl (7.5-11.0); Monocyte (Absolute #) 0.56 (0.0-1.3); Neutrophil % 60.3 % (36.0-66.0); Platelet Count 215 K/mm3 (150-450); Red Blood Count 4.49 M/mm3 (4.1-5.4); Red Cell Distribution Width 13.3 % (11.5-14.0)
[2021-03-24 23:48] LABS: Appearance SLIGHTLY CLOUDY (CLEAR); Bacteria RARE /HPF (NEGATIVE); Bilirubin NEGATIVE (NEGATIVE); Blood NEGATIVE Ery/ul (0-5); Epithelial Cells RARE /HPF (FEW); Glucose NEGATIVE (NEGATIVE); Ketones NEGATIVE (NEGATIVE); Leukocyte Esterase LARGE (NEGATIVE); Mucus SLIGHT /HPF (NEGATIVE); Nitrite NEGATIVE (NEGATIVE); Protein,Urine Dip NEGATIVE (Negative); RBC 0-2 /HPF (0-2); Specific Gravity 1.011 (1.005-1.025); Urobilinogen NEGATIVE mg/dL (0-1)
[2021-03-24] MEDS ORDERED: Sodium Chloride 0.9% 1000 ML 1,000 ML ONE (23:49)
[2021-03-24] MEDS ORDERED: MORPHINE SULFATE 2 MG INJ ONE (23:49)
--- NOTE | 2021-03-24 23:50 | ERPHSYRPT ---
- History of Present Illness Time Seen by Provider: 03/24/21 23:20 Historian: patient Exam Limitations: no limitations Patient Subjective Stated Complaint: pt has been vomiting off and on since Monday and fever since Monday Triage Nursing Assessment: pt c/o vomiting off and on since Monday and fever since Monday. Pt states, "I've ate but can't really keep much down". Physician History: Patient is a 20-year-old female presents to our ED for evaluation of left lower quadrant pain and fever. Patient states that she has been experiencing intermittent nausea and vomiting x3 days. Fever was observed today. Patient de scribed a temperature of 101. Left lower quadrant pain is scribed as an ache that is localized. No radiation. Pain worse with palpation to the left lower quadrant left pelvic region. No trauma. Patient is nauseous. No diarrhea. No rash. Symptoms are moderate in intensity. Patient voices no other complaints or concerns at this time. Timing/Duration: day(s) (3 days) Activities at Onset: none Quality: aching Abdominal Pain Onset Location: LLQ, other (Left pelvic left lower quadrant region.) Pain Radiation: no radiation Severity of Pain-Max: moderate Severity of Pain-Current: mild Modifying Factors: Improves With: palpation Associated Symptoms: fever/chills, nausea, vomiting, No chest pain, No diarrhea, No weakness Previous symptoms: no prior history Allergies/Adverse Reactions: Iodinated Contrast Media Allergy (Severe, Verified 03/24/21 23:14) Swelling aspirin Allergy (Intermediate, Verified 03/24/21 23:14) Swelling kiwi Allergy (Intermediate, Verified 03/24/21 23:14) peanut Allergy (Verified 03/24/21 23:14) acetaminophen [From Theraflu Day-Night Cold,Cough] Adverse Reaction (Mild, Verified 03/24/21 23:14) Vomiting dextromethorphan [From Theraflu Day-Night Cold,Cough] Adverse Reaction (Mild, Verified 03/24/21 23:14) Vomiting diphenhydramine [From Theraflu Day-Night Cold,Cough] Adverse Reaction (Mild, Verified 03/24/21 23:14) Vomiting guaifenesin [From Mucinex] Adverse Reaction (Mild, Verified 03/24/21 23:14) Nausea and Vomiting ibuprofen [From Advil] Adverse Reaction (Mild, Verified 03/24/21 23:14) Headache phenylephrine [From Theraflu Day-Night Cold,Cough] Adverse Reaction (Mild, Verified 03/24/21 23:14) Vomiting Home Medications: Cyanocobalamin (Vitamin B-12) [Vitamin B-12] 1,000 mcg PO DAILY 03/03/21 [History] Hx Tetanus, Diphtheria Vaccination/Date Given: Yes Hx Influenza Vaccination/Date Given: No Hx Pneumococcal Vaccination/Date Given: No Immunizations Up to Date: Yes Travel Risk - International Travel Have you traveled outside of the country in past 3 weeks: No - Coronavirus Screening Are you exhibiting any of the following symptoms?: Yes Symptoms: Fever, Vomiting/Diarrhea Close contact with a COVID-19 positive Pt in past 14-21 Days: No - Vaccine Status Have you recieved a Covid-19 vaccination: No - Review of Systems Constitutional: No Symptoms, No Fever, No Chills Eyes: No Symptoms Ears, Nose, & Throat: No Symptoms Respiratory: No Symptoms, No Cough, No Dyspnea Cardiac: No Symptoms, No Chest Pain, No Edema, No Syncope Abdominal/Gastrointestinal: No Symptoms, No Abdominal Pain, No Nausea, No Vomiting, No Diarrhea Genitourinary Symptoms: No Symptoms, No Dysuria Musculoskeletal: No Symptoms, No Back Pain, No Neck Pain Skin: No Symptoms, No Rash Neurological: No Symptoms, No Dizziness, No Focal Weakness, No Sensory Changes Psychological: No Symptoms Endocrine: No Symptoms Hematologic/Lymphatic: No Symptoms Immunological/Allergic: No Symptoms All Other Systems: Reviewed and Negative - Past Medical History Pertinent Past Medical History: Yes Neurological History: No Pertinent History ENT History: No Pertinent History Cardiac History: No Pertinent History Respiratory History: No Pertinent History Endocrine Medical History: No Pertinent History Musculoskeletal History: No Pertinent History GI Medical History: No Pertinent History History: No Pertinent History Psycho-Social History: No Pertinent History Female Reproductive Disorders: No Pertinent History Other Medical History: HX of Ovarian Cysts - Past Surgical History Past Surgical History: Yes Neuro Surgical History: No Pertinent History Cardiac: No Pertinent History Respiratory: No Pertinent History Gastrointestinal: No Pertinent History Genitourinary: No Pertinent History Musculoskeletal: No Pertinent History Female Surgical History: Dilation & Curettage Other Surgical History: HX Laproscopic procedure to look at ovaries - Social History Smoking Status: Former smoker Exposure to second hand smoke: No Drug Use: none Patient Lives Alone: No Significant Family History: no pertinent family hx - Female History Hx Last Menstrual Period: 02/07/21 Hx Now: No - Nursing Vital Signs Nursing Vital Signs: Initial Vital Signs Temperature 99.0 F 03/24/21 23:03 Pulse Rate 102 H 03/24/21 23:03 Respiratory Rate 16 03/24/21 23:03 Blood Pressure 121/70 03/24/21 23:03 O2 Sat by Pulse Oximetry 98 03/24/21 23:03 Pain Scale Pain Intensity 8 - Physical Exam General Appearance: no apparent distress, alert Eye Exam: PERRL/EOMI, eyes nml inspection Ears, Nose, Throat Exam: normal ENT inspection, pharynx normal, moist mucous membranes Neck Exam: normal inspection, non-tender, supple, full range of motion Respiratory Exam: normal breath sounds, lungs clear, airway intact, No respiratory distress Cardiovascular Exam: regular rate/rhythm, normal heart sounds, normal peripheral pulses Gastrointestinal/Abdomen Exam: soft, No tenderness, No mass Pelvic Exam: normal external exam, adnexal tenderness (Left adnexal tenderness.), No adnexal mass, No cervical motion tenderness, No vaginal bleeding, No uterine tenderness Back Exam: normal inspection, normal range of motion, No CVA tenderness, No vertebral tenderness Extremity Exam: normal inspection, normal range of motion, pelvis stable Neurologic Exam: alert, oriented x 3, cooperative, discharge coordinator II-XII nml as tested Skin Exam: normal color, warm, dry Lymphatic Exam: No adenopathy SpO2 Interpretation: normal SpO2: 98 O2 Delivery: Room Air - Course Nursing assessment & vital signs reviewed: Yes - CT Exams Abdomen/Pelvis CT Interpretation: Tele-radiologist Report (Findings show constipation. Negative for acute inflammatory process in the abdomen or pelvis.) - Radiology Ultrasound Exam Pelvis Ultrasound: discussed w/radiologist (Per the note specialist ultrasound was nonremarkable. No torsion. No tubo-ovarian abscess.) Ordered Tests: Active Orders 24 hr Category Date Time Status IV Insertion STAT Care 03/24/21 23:18 Active ABDOMEN AND PELVIS W/0 CONTRAS [CT] Stat Exams 03/24/21 23:20 Taken PELVIS TRANS VAGINAL [US] Stat Exams 03/24/21 23:22 Taken CBC W DIFF Stat Lab 03/24/21 23:45 Completed CMP Stat Lab 03/24/21 23:45 Completed CULTURE,URINE Stat Lab 03/24/21 23:20 Received HCG,QUALITATIVE URINE Stat Lab 03/24/21 23:20 Completed UA W/RFX UR CULTURE Stat Lab 03/24/21 23:20 Completed Medication Summary Generic Name Dose Route Start Last Admin Trade Name Gloria PRN Reason Stop Dose Admin Sodium Chloride 1,000 mls @ 100 mls/hr 03/24/21 23:30 03/24/21 23:50 Sodium Chloride 0.9% 1000 Ml IV 04/23/21 23:29 100 mls/hr .Q10H DEVIN Administration Discontinued Medications Generic Name Dose Route Start Last Admin Trade Name Gloria PRN Reason Stop Dose Admin Morphine Sulfate 2 mg 03/24/21 23:18 03/24/21 23:50 Morphine Sulfate 2 Mg/Ml Inj IV 03/24/21 23:19 2 mg STAT ONE Administration Morphine Sulfate Confirm 03/24/21 23:49 Morphine Sulfate 2 Mg/Ml Inj Administered 03/24/21 23:50 Dose 2 mg .ROUTE .[employer] ONE Lab/Rad Data: Laboratory Result Diagrams 03/24/21 23:45 03/24/21 23:45 Laboratory Results 03/24/21 03/24/21 03/24/21 Range/Units 23:45 23:45 23:20 WBC 7.0 (4.0-10.5) K/mm3 RBC 4.49 (4.1-5.4) M/mm3 Hgb 13.4 (12.0-16.0) gm/dl Hct 39.7 (35-47) % MCV 88.4 (78-100) fl MCH 29.8 (26-32) pg MCHC 33.8 (32-36) g/dl RDW 13.3 (11.5-14.0) % Plt Count 215 (150-450) K/mm3 MPV 10.1 (7.5-11.0) fl Gran % 60.3 (36.0-66.0) % Eos # (Auto) 0.06 (0-0.5) Absolute Lymphs (auto) 2.14 (1.0-4.6) Absolute Monos (auto) 0.56 (0.0-1.3) Lymphocytes % 30.7 (24.0-44.0) % Monocytes % 8.0 (0.0-12.0) % Eosinophils % 0.9 (0.00-5.0) % Basophils % 0.1 (0.0-0.4) % Absolute Granulocytes 4.20 (1.4-6.9) Basophils # 0.01 (0-0.4) Sodium 141 (137-145) mmol/L Potassium 3.7 (3.5-5.1) mmol/L Chloride 107 (98-107) mmol/L Carbon Dioxide 22 (22-30) mmol/L Anion Gap 15.9 H (5-15) MEQ/L BUN 6 L (7-17) mg/dL Creatinine 0.68 (0.52-1.04) mg/dL Estimated GFR > 60.0 ML/MIN Glucose 114 H (74-106) mg/dL Calcium 9.4 (8.4-10.2) mg/dL Total Bilirubin 0.90 (0.2-1.3) mg/dL AST 28 (14-36) U/L ALT 31 (0-35) U/L Alkaline Phosphatase 63 (38-126) U/L Serum Total Protein 7.7 (6.3-8.2) g/dL Albumin 4.8 (3.5-5.0) g/dL Urine Color (YELLOW) Urine Appearance (CLEAR) Urine pH (5-6) Ur Specific Clayton (1.005-1.025) Urine Protein (Negative) Urine Ketones (NEGATIVE) Urine Blood (0-5) Conor/ul Urine Nitrite (NEGATIVE) Urine Bilirubin (NEGATIVE) Urine Urobilinogen (0-1) mg/dL Ur Leukocyte Esterase (NEGATIVE) Urine WBC (Auto) (0-5) /HPF Urine RBC (Auto) (0-2) /HPF U Epithel Cells (Auto) (FEW) /HPF Urine Bacteria (Auto) (NEGATIVE) /HPF Urine Mucus (Auto) (NEGATIVE) /HPF Urine Culture Reflexed (NO) Urine Glucose (NEGATIVE) mg/dL Urine HCG, Qual NEGATIVE (Negative) WBC (Wet Prep) RBC (Wet Prep) Epi Cells (Wet Prep) Bacteria (Wet Prep) Clue Cells (Wet Prep) Trichomonas (Wet Prep) Budding Yeast (Wet Prp) 03/24/21 03/24/21 Range/Units 23:20 00:00 WBC (4.0-10.5) K/mm3 RBC (4.1-5.4) M/mm3 Hgb (12.0-16.0) gm/dl Hct (35-47) % MCV (78-100) fl MCH (26-32) pg MCHC (32-36) g/dl RDW (11.5-14.0) % Plt Count (150-450) K/mm3 MPV (7.5-11.0) fl Gran % (36.0-66.0) % Eos # (Auto) (0-0.5) Absolute Lymphs (auto) (1.0-4.6) Absolute Monos (auto) (0.0-1.3) Lymphocytes % (24.0-44.0) % Monocytes % (0.0-12.0) % Eosinophils % (0.00-5.0) % Basophils % (0.0-0.4) % Absolute Granulocytes (1.4-6.9) Basophils # (0-0.4) Sodium (137-145) mmol/L Potassium (3.5-5.1) mmol/L Chloride (98-107) mmol/L Carbon Dioxide (22-30) mmol/L Anion Gap (5-15) MEQ/L BUN (7-17) mg/dL Creatinine (0.52-1.04) mg/dL Estimated GFR ML/MIN Glucose (74-106) mg/dL Calcium (8.4-10.2) mg/dL Total Bilirubin (0.2-1.3) mg/dL AST (14-36) U/L ALT (0-35) U/L Alkaline Phosphatase (38-126) U/L Serum Total Protein (6.3-8.2) g/dL Albumin (3.5-5.0) g/dL Urine Color YELLOW (YELLOW) Urine Appearance SLIGHTLY CLOUDY (CLEAR) Urine pH 7.0 (5-6) Ur Specific Clayton 1.011 (1.005-1.025) Urine Protein NEGATIVE (Negative) Urine Ketones NEGATIVE (NEGATIVE) Urine Blood NEGATIVE (0-5) Conor/ul Urine Nitrite NEGATIVE (NEGATIVE) Urine Bilirubin NEGATIVE (NEGATIVE) Urine Urobilinogen NEGATIVE (0-1) mg/dL Ur Leukocyte Esterase LARGE (NEGATIVE) Urine WBC (Auto) 6-10 (0-5) /HPF Urine RBC (Auto) 0-2 (0-2) /HPF U Epithel Cells (Auto) RARE (FEW) /HPF Urine Bacteria (Auto) RARE (NEGATIVE) /HPF Urine Mucus (Auto) SLIGHT (NEGATIVE) /HPF Urine Culture Reflexed YES (NO) Urine Glucose NEGATIVE (NEGATIVE) mg/dL Urine HCG, Qual (Negative) WBC (Wet Prep) Moderate RBC (Wet Prep) Rare Epi Cells (Wet Prep) Few Bacteria (Wet Prep) Moderate Clue Cells (Wet Prep) Rare Trichomonas (Wet Prep) None Seen Budding Yeast (Wet Prp) None Seen - Progress Progress: improved Progress Note: Patient reassessed. She feels well. No active pain at this time. CT negative for acute intra-abdominal pathology. Constipation observed. UA significant for urinary tract infection. Laboratory work-up otherwise negative. wet prep negative 03/25/21 01:32 03/25/21 01:33 Counseled pt/family regarding: lab results, diagnosis, need for follow-up, rad results - Departure Departure Disposition: Home Clinical Impression: Constipation, UTI (urinary tract infection), intestinal colic Condition: Stable Critical Care Time: No Referrals: NELLY SCHRADER DO [Primary Care Provider] - Instructions: Constipation, Adult (DC), Urinary Tract Infection, Adult (DC) Additional Instructions: Work-up reveals a urinary tract infection. A prescription for Macrobid was forwarded to your pharmacy. Your CAT scan reveals constipation. You may try [id number] [id number] to address her constipation. Follow-up with your family doctor within 48 hours for reevaluation. Discharge/Care Plan JHOANA MEDINA was seen on 03/25/21 in the Emergency Room. The patient was couns eled regarding Diagnosis,Lab results, Imaging studies, need for follow up and when to return to the Emergency Room. Prescriptions given: Discharge Note I have spoken with the patient and/or caregivers. I have explained the patient's condition, diagnosis and treatment plan based on the information available to me at this time. I have answered the patient's and/or caregiver's questions and addressed any concerns. The patient and/or caregivers have as good understanding of the patient's diagnosis, condition and treatment plan as can be expected at this point. The vital signs have been stable. The patient's condition is stable and appropriate for discharge from the emergency department. The patient will pursue further outpatient evaluation with the primary care physician or other designated or consulting physician as outlined in the discharge instructions. The patient and/or caregivers are agreeable to this plan of care and follow-up instructions have been explained in detail. The patient and/or caregivers have received these instruction. The patient/and or caregivers are aware that any significant change in condition or worsening of symptoms should prompt an immediate return to this or the closest emergency department or call 911. Prescriptions: Nitrofurantoin Macro 100 mg [Macrobid 100MG Capsule] 100 mg PO BID 7 Days #14 cap
[2021-03-24 23:54] LABS: ALBUMIN 4.8 g/dL (3.5-5.0); ALKALINE PHOSPHATASE 63 U/L (38-126); ANION GAP 15.9 MEQ/L (5-15); BLOOD UREA NITROGEN 6 mg/dL (7-17); CHLORIDE 107 mmol/L (98-107); Calcium 9.4 mg/dL (8.4-10.2); Carbon Dioxide 22 mmol/L (22-30); Creatinine 1 0.68 mg/dL (0.52-1.04); EST GLOMERULAR FILTRATION RATE > 60.0 ML/MIN; Glucose 114 mg/dL (74-106); Potassium 3.7 mmol/L (3.5-5.1); SGOT/AST 28 U/L (14-36); SGPT/ALT 31 U/L (0-35); SODIUM 141 mmol/L (137-145); Total Protein 7.7 g/dL (6.3-8.2)
[2021-03-25 00:42] LABS: Bacteria Moderate; Clue Cells Rare
[2021-03-25 00:43] LABS: Red Blood Cells Rare; Trichomonas None Seen; White Blood Cells Moderate; Yeast None Seen
[2021-03-25 01:42] VITALS: BP 119/72; PULSE 81
[2021-03-25 02:01] LABS: CHLAMYDIA DNA NOT DETECTED (NEGATIVE); GC DNA Probe NOT DETECTED (NEGATIVE)
--- NOTE | 2021-03-25 08:49 | XRAY ---
Indication: Left lower quadrant pain 2 years. Nausea, vomiting, constipation, and fever. Multiple contiguous axial images obtained through the abdomen and pelvis without contrast. Comparison: November 29, 2020. Study degraded by respiration artifact throughout. Lung bases remain clear. Heart not enlarged. Noncontrasted stomach and bowel loops remain nonobstructed with normal air-filled appendix. Again mild scattered fecal debris. No free fluid/air. Remaining liver, gallbladder, pancreas, spleen, adrenal glands, kidneys, ureters, bladder, uterus, and aorta are unremarkable for noncontrast exam. Osseous structures intact. No ventral or inguinal hernias. Impression: 1. Respiration artifact. 2. Again mild fecal stasis. 3. Remaining CT abdomen/pelvis without contrast exam is negative. Comment: Preliminary interpretation made by [facility]. No critical discrepancy.
--- NOTE | 2021-03-25 08:51 | XRAY ---
Indication: Left lower quadrant pain. Two-dimensional transvaginal pelvic sonogram performed. Comparison: March 15, 2021. Uterus is now anteverted measuring 7.0 x 2.9 x 4.5 cm. No focal solid/cystic uterine mass. Endometrial stripe measures 1.1 cm. No endometrial cavity mass or fluid collection. Right ovary measures 3.6 x 2.2 x 2.6 cm and the left measures 4.4 x 2.7 x 3.4 cm. Normal follicular cysts and perfusion bilaterally. Tiny left adnexa and cul-de-sac free fluid presumed physiologic from rupture/leaking cyst. Impression: Tiny physiologic free fluid. Remaining transvaginal pelvic sonogram is negative. Comment: Preliminary report was given.
== END 2021-03-25 01:37 | disposition home or self-care (01) ==
LOC: ED 22:47
DX: K59.00 Constipation, unspecified (principal); N39.0 Urinary tract infection, site not specified; R10.84 Generalized abdominal pain
CPT/HCPCS: 36000; 36415; 74176; 76830; 80053; 81001; 84703; 85025; 87086; 87210; 87491; 87591; 96374; 99284; J2270

== ENCOUNTER 2021-04-13 15:17 | Emergency (ER) | payer OTHER ==
[2021-04-13] MEDS ORDERED: Sodium Chloride 0.9% 1000 ML 1,000 ML IV STA (15:31)
[2021-04-13] MEDS ORDERED: PROTONIX 40 MG IV IV ONE ×2 (15:31→15:36)
[2021-04-13] MEDS ORDERED: Zofran 4 MG/2 ML VIAL IV ONE (15:31)
[2021-04-13] MEDS ORDERED: Zofran 4 MG/2 ML VIAL ONE (15:36)
[2021-04-13] MEDS ORDERED: Sodium Chloride 0.9% 1000 ML 1,000 ML ONE (15:36)
[2021-04-13 15:55] LABS: BASOPHIL % 0.1 % (0.0-0.4); Basophil (Absolute #) 0.01 (0-0.4); Eosinophil % 0.1 % (0.00-5.0); Eosinophil (Absolute #) 0.01 (0-0.5); Hematocrit 41.1 % (35-47); Hemoglobin 14.1 gm/dl (12.0-16.0); Lymphocyte (Absolute #) 1.77 (1.0-4.6); Lymphocytes % 16.6 % (24.0-44.0); Mean Cell Volume 86.7 fl (78-100); Mean Corpuscular Hemoglobin 29.7 pg (26-32); Mean Corpuscular Hgb Concent. 34.3 g/dl (32-36); Mean Platelet Volume 10.1 fl (7.5-11.0); Monocyte (Absolute #) 0.78 (0.0-1.3); Monocytes % 7.3 % (0.0-12.0); Neutrophil % 75.9 % (36.0-66.0); Platelet Count 291 K/mm3 (150-450); Red Blood Count 4.74 M/mm3 (4.1-5.4); Red Cell Distribution Width 12.9 % (11.5-14.0); White Blood Count 10.7 K/mm3 (4.0-10.5)
[2021-04-13] MEDS ORDERED: MORPHINE SULFATE 2 MG INJ IV ONE (15:55)
[2021-04-13] MEDS ORDERED: MORPHINE SULFATE 2 MG INJ ONE (15:57)
[2021-04-13 15:58] LABS: Appearance SLIGHTLY CLOUDY (CLEAR); Bacteria RARE /HPF (NEGATIVE); Bilirubin NEGATIVE (NEGATIVE); Blood NEGATIVE Ery/ul (0-5); Epithelial Cells RARE /HPF (FEW); Glucose NEGATIVE (NEGATIVE); Ketones MODERATE (NEGATIVE); Leukocyte Esterase MODERATE (NEGATIVE); Mucus MANY /HPF (NEGATIVE); Nitrite NEGATIVE (NEGATIVE); Protein,Urine Dip 30 (Negative); Specific Gravity 1.027 (1.005-1.025); Urobilinogen 2 mg/dL (0-1)
[2021-04-13 16:10] LABS: ALKALINE PHOSPHATASE 62 U/L (38-126); AMYLASE 87 U/L (30-110); ANION GAP 20.5 MEQ/L (5-15); BLOOD UREA NITROGEN 7 mg/dL (7-17); CHLORIDE 101 mmol/L (98-107); Calcium 9.7 mg/dL (8.4-10.2); Carbon Dioxide 20 mmol/L (22-30); Creatinine 1 0.67 mg/dL (0.52-1.04); EST GLOMERULAR FILTRATION RATE > 60.0 ML/MIN; Glucose 86 mg/dL (74-106); LIPASE 75 U/L (23-300); Potassium 3.8 mmol/L (3.5-5.1); SGOT/AST 26 U/L (14-36); SGPT/ALT 27 U/L (0-35); SODIUM 138 mmol/L (137-145); Total Protein 8.1 g/dL (6.3-8.2)
--- NOTE | 2021-04-13 16:38 | ERPHSYRPT ---
- History of Present Illness Time Seen by Provider: 04/13/21 15:40 Historian: patient Exam Limitations: no limitations Patient Subjective Stated Complaint: vomiting Triage Nursing Assessment: Patient ambulated back to ED and transferred self to bed. Patient A+O X3. Patient's skin pink, warm and dry. Patient complains of vomiting for 3 weeks. Patient states her lower abdomen hurts 8/10. Abdomen soft and round with BS X 4. Patient also complains of constipation. Physician History: This is a 20-year-old white female patient of Dr. Medina who has seen her primary care physician in the office, Dr. Villegas within the last week and seen in this emergency department on 03/27/2021. Patient has had complaints of left low er quadrant/left suprapubic abdominal pain and intermittent nausea and vomiting for the last 2 to 3 weeks. On 03/27/2021 patient underwent a significant work- up for the same complaints. Her urinary hCG was negative at that time and a CAT scan of the abdomen pelvis without contrast was also negative for any acute intra-abdominal intrapelvic pathology or process. Patient was seen at her primary care physician's office today and was having significant pain and vomiting. She states she can barely hold fluids down. She was sent to the emergency department for further evaluation. She has not had vaginal bleeding. Timing/Duration: week(s) (3) Quality: sharpness, stabbing Abdominal Pain Onset Location: LLQ, suprapubic (Left side) Pain Radiation: no radiation Severity of Pain-Max: moderate Severity of Pain-Current: mild (To moderate) Modifying Factors: Improves With: vomiting Associated Symptoms: loss of appetite, nausea, vomiting, No chest pain, No shortness of breath Previous symptoms: same symptoms as today, recently seen, recently treated Allergies/Adverse Reactions: Iodinated Contrast Media Allergy (Severe, Verified 04/13/21 15:27) Swelling aspirin Allergy (Intermediate, Verified 04/13/21 15:27) Swelling kiwi Allergy (Intermediate, Verified 04/13/21 15:27) peanut Allergy (Verified 04/13/21 15:27) acetaminophen [From Theraflu Day-Night Cold,Cough] Adverse Reaction (Mild, Verified 04/13/21 15:27) Vomiting dextromethorphan [From Theraflu Day-Night Cold,Cough] Adverse Reaction (Mild, Verified 04/13/21 15:27) Vomiting diphenhydramine [From Theraflu Day-Night Cold,Cough] Adverse Reaction (Mild, Verified 04/13/21 15:27) Vomiting guaifenesin [From Mucinex] Adverse Reaction (Mild, Verified 04/13/21 15:27) Nausea and Vomiting ibuprofen [From Advil] Adverse Reaction (Mild, Verified 04/13/21 15:27) Headache phenylephrine [From Theraflu Day-Night Cold,Cough] Adverse Reaction (Mild, Verified 04/13/21 15:27) Vomiting Home Medications: Cyanocobalamin (Vitamin B-12) [Vitamin B-12] 1,000 mcg PO DAILY 03/03/21 [History] Hx Tetanus, Diphtheria Vaccination/Date Given: Yes Hx Influenza Vaccination/Date Given: No Hx Pneumococcal Vaccination/Date Given: No Immunizations Up to Date: Yes Travel Risk - International Travel Have you traveled outside of the country in past 3 weeks: No - Coronavirus Screening Are you exhibiting any of the following symptoms?: No Close contact with a COVID-19 positive Pt in past 14-21 Days: No - Vaccine Status Have you recieved a Covid-19 vaccination: No - Review of Systems Constitutional: No Symptoms Eyes: No Symptoms Ears, Nose, & Throat: No Symptoms Respiratory: No Symptoms Cardiac: No Symptoms Abdominal/Gastrointestinal: Abdominal Pain (Left lower quadrant/left suprapubic), Nausea, Vomiting, No Diarrhea, No Constipation Genitourinary Symptoms: No Symptoms Musculoskeletal: No Symptoms Skin: No Symptoms Neurological: No Symptoms Psychological: No Symptoms - Past Medical History Pertinent Past Medical History: Yes Neurological History: No Pertinent History ENT History: No Pertinent History Cardiac History: No Pertinent History Respiratory History: No Pertinent History Endocrine Medical History: No Pertinent History Musculoskeletal History: No Pertinent History GI Medical History: No Pertinent History History: No Pertinent History Psycho-Social History: No Pertinent History Female Reproductive Disorders: No Pertinent History Other Medical History: HX of Ovarian Cysts - Past Surgical History Past Surgical History: Yes Neuro Surgical History: No Pertinent History Cardiac: No Pertinent History Respiratory: No Pertinent History Gastrointestinal: No Pertinent History Genitourinary: No Pertinent History Musculoskeletal: No Pertinent History Female Surgical History: Dilation & Curettage Other Surgical History: HX Laproscopic procedure to look at ovaries - Social History Smoking Status: Former smoker Exposure to second hand smoke: No Drug Use: none Patient Lives Alone: No Significant Family History: no pertinent family hx - Female History Hx Last Menstrual Period: february 07- Hx Now: Yes - Nursing Vital Signs Nursing Vital Signs: Initial Vital Signs Pulse Rate 104 H 04/13/21 16:00 Respiratory Rate 18 04/13/21 16:00 Blood Pressure 106/73 04/13/21 16:00 O2 Sat by Pulse Oximetry 99 04/13/21 16:00 Pain Scale Pain Intensity 0 - Physical Exam General Appearance: mild distress, alert, anxiety Eye Exam: PERRL/EOMI, eyes nml inspection Ears, Nose, Throat Exam: normal ENT inspection, moist mucous membranes Neck Exam: normal inspection, non-tender, supple, full range of motion Respiratory Exam: normal breath sounds, lungs clear, airway intact, No chest tenderness, No respiratory distress Cardiovascular Exam: regular rate/rhythm, normal heart sounds, normal peripheral pulses Gastrointestinal/Abdomen Exam: soft, normal bowel sounds, tenderness (Left suprapubic region with palpation), guarding, No rebound Pelvic Exam: not done Rectal Exam: not done Back Exam: normal inspection, normal range of motion, No CVA tenderness, No vertebral tenderness Extremity Exam: normal inspection, normal range of motion, pelvis stable Neurologic Exam: alert, oriented x 3, cooperative, twister frame tender II-XII nml as tested, normal mood/affect, nml cerebellar function, nml station & gait, sensation nml Skin Exam: normal color, warm, dry Lymphatic Exam: No adenopathy SpO2 Interpretation: normal O2 Delivery: Room Air - Course Nursing assessment & vital signs reviewed: Yes Ordered Tests: Active Orders 24 hr Category Date Time Status IV Insertion STAT Care 04/13/21 15:31 Active OB TRANSVAGINAL [US] Stat Exams 04/13/21 16:04 Completed AMYLASE Stat Lab 04/13/21 15:35 Completed CBC W DIFF Stat Lab 04/13/21 15:35 Completed CMP Stat Lab 04/13/21 15:35 Completed CULTURE,URINE Stat Lab 04/13/21 15:35 Received HCG, Quantitative (Inhouse) Stat Lab 04/13/21 16:00 Completed HCG,QUALITATIVE URINE Stat Lab 04/13/21 15:35 Completed LIPASE Stat Lab 04/13/21 15:35 Completed Lactic Acid Stat Lab 04/13/21 15:40 Completed UA W/RFX UR CULTURE Stat Lab 04/13/21 15:35 Completed Medication Summary Discontinued Medications Generic Name Dose Route Start Last Admin Trade Name Gloria PRN Reason Stop Dose Admin Sodium Chloride 1,000 mls @ 999 mls/hr 04/13/21 15:31 04/13/21 17:19 Sodium Chloride 0.9% 1000 Ml IV 04/13/21 16:31 Infused .Q1H1M STA Infusion Sodium Chloride Confirm 04/13/21 15:36 Sodium Chloride 0.9% 1000 Ml Administered 04/13/21 15:37 Dose 1,000 mls @ ud .ROUTE .STK-MED ONE Morphine Sulfate 2 mg 04/13/21 15:55 04/13/21 15:57 Morphine Sulfate 2 Mg/Ml Inj IV 04/13/21 15:56 2 mg STAT ONE Administration Morphine Sulfate Confirm 04/13/21 15:57 Morphine Sulfate 2 Mg/Ml Inj Administered 04/13/21 15:58 Dose 2 mg .ROUTE .STK-MED ONE Ondansetron HCl 4 mg 04/13/21 15:31 04/13/21 15:40 Ondansetron Hcl 4 Mg/2 Ml Vial IV 04/13/21 15:32 4 mg STAT ONE Administration Ondansetron HCl Confirm 04/13/21 15:36 Ondansetron Hcl 4 Mg/2 Ml Vial Administered 04/13/21 15:37 Dose 4 mg .ROUTE .STK-MED ONE Pantoprazole Sodium 40 mg 04/13/21 15:31 04/13/21 15:39 Pantoprazole 40 Mg Vial IV 04/13/21 15:32 40 mg STAT ONE Administration Pantoprazole Sodium Confirm 04/13/21 15:36 Pantoprazole 40 Mg Vial Administered 04/13/21 15:37 Dose 40 mg IV .STK-MED ONE Lab/Rad Data: Laboratory Result Diagrams 04/13/21 15:35 04/13/21 15:35 Laboratory Results 04/13/21 04/13/21 04/13/21 Range/Units 16:00 15:40 15:35 WBC (4.0-10.5) K/mm3 RBC (4.1-5.4) M/mm3 Hgb (12.0-16.0) gm/dl Hct (35-47) % MCV (78-100) fl MCH (26-32) pg MCHC (32-36) g/dl RDW (11.5-14.0) % Plt Count (150-450) K/mm3 MPV (7.5-11.0) fl Gran % (36.0-66.0) % Eos # (Auto) (0-0.5) Absolute Lymphs (auto) (1.0-4.6) Absolute Monos (auto) (0.0-1.3) Lymphocytes % (24.0-44.0) % Monocytes % (0.0-12.0) % Eosinophils % (0.00-5.0) % Basophils % (0.0-0.4) % Absolute Granulocytes (1.4-6.9) Basophils # (0-0.4) Sodium (137-145) mmol/L Potassium (3.5-5.1) mmol/L Chloride (98-107) mmol/L Carbon Dioxide (22-30) mmol/L Anion Gap (5-15) MEQ/L BUN (7-17) mg/dL Creatinine (0.52-1.04) mg/dL Estimated GFR ML/MIN Glucose (74-106) mg/dL Lactic Acid 2.3 H (0.4-2.0) Calcium (8.4-10.2) mg/dL Total Bilirubin (0.2-1.3) mg/dL AST (14-36) U/L ALT (0-35) U/L Alkaline Phosphatase (38-126) U/L Serum Total Protein (6.3-8.2) g/dL Albumin (3.5-5.0) g/dL Amylase (30-110) U/L Lipase (23-300) U/L Beta HCG, Quant > 93341 mIU/ml Urine Color ANGELO (YELLOW) Urine Appearance SLIGHTLY CLOUDY (CLEAR) Urine pH 5.0 (5-6) Ur Specific [place] 1.027 (1.005-1.025) Urine Protein 30 (Negative) Urine Ketones MODERATE (NEGATIVE) Urine Blood NEGATIVE (0-5) Conor/ul Urine Nitrite NEGATIVE (NEGATIVE) Urine Bilirubin NEGATIVE (NEGATIVE) Urine Urobilinogen 2 (0-1) mg/dL Ur Leukocyte Esterase MODERATE (NEGATIVE) Urine WBC (Auto) 6-10 (0-5) /HPF Urine RBC (Auto) 3-5 (0-2) /HPF U Epithel Cells (Auto) RARE (FEW) /HPF Urine Bacteria (Auto) RARE (NEGATIVE) /HPF Urine Mucus (Auto) MANY (NEGATIVE) /HPF Urine Culture Reflexed YES (NO) Urine Glucose NEGATIVE (NEGATIVE) mg/dL Urine HCG, Qual (Negative) 04/13/21 04/13/21 04/13/21 Range/Units 15:35 15:35 15:35 WBC 10.7 H (4.0-10.5) K/mm3 RBC 4.74 (4.1-5.4) M/mm3 Hgb 14.1 (12.0-16.0) gm/dl Hct 41.1 (35-47) % MCV 86.7 (78-100) fl MCH 29.7 (26-32) pg MCHC 34.3 (32-36) g/dl RDW 12.9 (11.5-14.0) % Plt Count 291 (150-450) K/mm3 MPV 10.1 (7.5-11.0) fl Gran % 75.9 H (36.0-66.0) % Eos # (Auto) 0.01 (0-0.5) Absolute Lymphs (auto) 1.77 (1.0-4.6) Absolute Monos (auto) 0.78 (0.0-1.3) Lymphocytes % 16.6 L (24.0-44.0) % Monocytes % 7.3 (0.0-12.0) % Eosinophils % 0.1 (0.00-5.0) % Basophils % 0.1 (0.0-0.4) % Absolute Granulocytes 8.10 H (1.4-6.9) Basophils # 0.01 (0-0.4) Sodium 138 (137-145) mmol/L Potassium 3.8 (3.5-5.1) mmol/L Chloride 101 (98-107) mmol/L Carbon Dioxide 20 L (22-30) mmol/L Anion Gap 20.5 H (5-15) MEQ/L BUN 7 (7-17) mg/dL Creatinine 0.67 (0.52-1.04) mg/dL Estimated GFR > 60.0 ML/MIN Glucose 86 (74-106) mg/dL Lactic Acid (0.4-2.0) Calcium 9.7 (8.4-10.2) mg/dL Total Bilirubin 1.30 (0.2-1.3) mg/dL AST 26 (14-36) U/L ALT 27 (0-35) U/L Alkaline Phosphatase 62 (38-126) U/L Serum Total Protein 8.1 (6.3-8.2) g/dL Albumin 5.0 (3.5-5.0) g/dL Amylase 87 (30-110) U/L Lipase 75 (23-300) U/L Beta HCG, Quant mIU/ml Urine Color (YELLOW) Urine Appearance (CLEAR) Urine pH (5-6) Ur Specific [place] (1.005-1.025) Urine Protein (Negative) Urine Ketones (NEGATIVE) Urine Blood (0-5) Conor/ul Urine Nitrite (NEGATIVE) Urine Bilirubin (NEGATIVE) Urine Urobilinogen (0-1) mg/dL Ur Leukocyte Esterase (NEGATIVE) Urine WBC (Auto) (0-5) /HPF Urine RBC (Auto) (0-2) /HPF U Epithel Cells (Auto) (FEW) /HPF Urine Bacteria (Auto) (NEGATIVE) /HPF Urine Mucus (Auto) (NEGATIVE) /HPF Urine Culture Reflexed (NO) Urine Glucose (NEGATIVE) mg/dL Urine HCG, Qual POSITIVE (Negative) - Progress Progress: improved, pain not gone completely, re-examined Progress Note: 04/13/21 17:31 Transvaginal ultrasound shows a single viable intrauterine at 6 weeks. The heart rate is 145. There are no suspicious adnexal masses or free fluid. Counseled pt/family regarding: lab results, diagnosis, need for follow-up, rad results - Departure Departure Disposition: Home Clinical Impression: , Urinary tract infection during Condition: Stable Critical Care Time: No Referrals: NELLY MEDINA, [Primary Care Provider] - Follow up/PCP as directed Additional Instructions: Drink plenty of fluids. Use Tylenol for pain control. Take your antibiotics as prescribed. Call your supervisory historian tomorrow morning to make them aware that you are . Prescriptions: Cephalexin Mh 500 mg [Keflex 500 mg] 500 mg PO TID #21 cap
--- NOTE | 2021-04-13 17:00 | XRAY ---
Indication: Left lower quadrant pain. Two-dimensional transvaginal early OB ultrasound performed. Comparison: None Single intrauterine gestational sac with presence of a single pole and yolk sac. Mean crown-rump length measures 0.49 [place] corresponding to 6 which window. heart rate 145 bpm. No abnormal subchorionic fluid. Left ovary demonstrates a 1 x 1.5 cm corpus luteal cyst. Right ovary unremarkable. No suspicious adnexal mass or free fluid. Impression: Single viable intrauterine measuring 6 weeks 1 day. Expected date confinement is December 06, 2021.
[2021-04-13] MEDS ORDERED: KEFLEX 500 MG PO ONE (17:35)
[2021-04-13] MEDS ORDERED: KEFLEX 500 MG ONE (17:37)
== END 2021-04-13 17:49 | disposition home or self-care (01) ==
LOC: ED 15:17
DX: O23.41 Unspecified infection of urinary tract in pregnancy, first trimester (principal); N39.0 Urinary tract infection, site not specified
CPT/HCPCS: 36000; 36415; 76817; 80053; 81001; 82150; 83605; 83690; 84702; 84703; 85025; 87086; 96360; 96374; 96375; 99284; J2270; J2405; A9270-GY

== ENCOUNTER 2021-05-04 16:50 | Emergency (ER) | payer OTHER ==
--- NOTE | 2021-05-04 17:01 | ERPHSYRPT ---
- History of Present Illness Time Seen by Provider: 05/04/21 17:00 Historian: patient Exam Limitations: no limitations Physician History: This is a 21-year-old white female who is 5-1/2 weeks and presents with history of brief loss of consciousness after falling and hitting her head earlier today. Patient states that she has been vomiting off and on for several days. She is unable to hold her antiemetic medication of Zofran down. She has no abdominal pain. The vomiting was present prior to her falling and hitting her head. She feels weak Timing/Duration: today Activities at Onset: none Severity of Pain-Max: none Severity of Pain-Current: none Modifying Factors: Improves With: vomiting Associated Symptoms: vomiting, weakness Previous symptoms: no prior history Allergies/Adverse Reactions: Iodinated Contrast Media Allergy (Severe, Verified 05/04/21 16:58) Swelling aspirin Allergy (Intermediate, Verified 05/04/21 16:58) Swelling kiwi Allergy (Intermediate, Verified 05/04/21 16:58) peanut Allergy (Verified 05/04/21 16:58) acetaminophen [From Theraflu Day-Night Cold,Cough] Adverse Reaction (Mild, Verified 05/04/21 16:58) Vomiting dextromethorphan [From Theraflu Day-Night Cold,Cough] Adverse Reaction (Mild, Verified 05/04/21 16:58) Vomiting diphenhydramine [From Theraflu Day-Night Cold,Cough] Adverse Reaction (Mild, Verified 05/04/21 16:58) Vomiting guaifenesin [From Mucinex] Adverse Reaction (Mild, Verified 05/04/21 16:58) Nausea and Vomiting ibuprofen [From Advil] Adverse Reaction (Mild, Verified 05/04/21 16:58) Headache phenylephrine [From Theraflu Day-Night Cold,Cough] Adverse Reaction (Mild, Verified 05/04/21 16:58) Vomiting Home Medications: Cyanocobalamin (Vitamin B-12) [Vitamin B-12] 1,000 mcg PO DAILY 03/03/21 [History] Ondansetron [Ondansetron Odt ] 1 ea TID 05/04/21 [History] Hx Tetanus, Diphtheria Vaccination/Date Given: Yes Hx Influenza Vaccination/Date Given: No Hx Pneumococcal Vaccination/Date Given: No Travel Risk - International Travel Have you traveled outside of the country in past 3 weeks: No - Coronavirus Screening Are you exhibiting any of the following symptoms?: No Close contact with a COVID-19 positive Pt in past 14-21 Days: No - Vaccine Status Have you recieved a Covid-19 vaccination: No - Review of Systems Constitutional: No Symptoms Eyes: No Symptoms Ears, Nose, & Throat: No Symptoms Respiratory: No Symptoms Cardiac: No Symptoms Abdominal/Gastrointestinal: No Symptoms Genitourinary Symptoms: No Symptoms Musculoskeletal: No Symptoms Skin: No Symptoms Neurological: Headache Psychological: No Symptoms Endocrine: No Symptoms Hematologic/Lymphatic: No Symptoms Immunological/Allergic: No Symptoms All Other Systems: Reviewed and Negative - Past Medical History Pertinent Past Medical History: Yes Neurological History: No Pertinent History ENT History: No Pertinent History Cardiac History: No Pertinent History Respiratory History: No Pertinent History Endocrine Medical History: No Pertinent History Musculoskeletal History: No Pertinent History GI Medical History: No Pertinent History History: No Pertinent History Psycho-Social History: No Pertinent History Female Reproductive Disorders: No Pertinent History Other Medical History: HX of Ovarian Cysts - Past Surgical History Past Surgical History: Yes Neuro Surgical History: No Pertinent History Cardiac: No Pertinent History Respiratory: No Pertinent History Gastrointestinal: No Pertinent History Genitourinary: No Pertinent History Musculoskeletal: No Pertinent History Female Surgical History: Dilation & Curettage Other Surgical History: HX Laproscopic procedure to look at ovaries - Social History Smoking Status: Former smoker Exposure to second hand smoke: No Drug Use: none Patient Lives Alone: No Significant Family History: no pertinent family hx - Nursing Vital Signs Nursing Vital Signs: Initial Vital Signs Temperature 97.6 F 05/04/21 17:01 Pulse Rate 116 H 05/04/21 17:01 Respiratory Rate 18 05/04/21 17:01 Blood Pressure 120/79 05/04/21 17:01 O2 Sat by Pulse Oximetry 100 05/04/21 17:01 Pain Scale Pain Intensity 4 - Physical Exam General Appearance: no apparent distress, alert, anxiety Eye Exam: PERRL/EOMI, eyes nml inspection Ears, Nose, Throat Exam: normal ENT inspection, moist mucous membranes Neck Exam: normal inspection, non-tender, supple, full range of motion Respiratory Exam: normal breath sounds, lungs clear, airway intact, No chest tenderness, No respiratory distress Cardiovascular Exam: regular rate/rhythm, normal heart sounds, normal peripheral pulses Gastrointestinal/Abdomen Exam: soft, normal bowel sounds, No tenderness Pelvic Exam: not done Rectal Exam: not done Back Exam: normal inspection, normal range of motion, No CVA tenderness, No vertebral tenderness Extremity Exam: normal inspection, normal range of motion, pelvis stable Neurologic Exam: alert, oriented x 3, cooperative, substance abuse specialist II-XII nml as tested, normal mood/affect, nml cerebellar function, nml station & gait, sensation nml Skin Exam: normal color, warm, dry Lymphatic Exam: No adenopathy SpO2 Interpretation: normal O2 Delivery: Room Air - Course Nursing assessment & vital signs reviewed: Yes Ordered Tests: Active Orders 24 hr Category Date Time Status IV Insertion STAT Care 05/04/21 17:35 Active HEAD WITHOUT CONTRAST [CT] Stat Exams 05/04/21 17:36 Taken AMYLASE Stat Lab 05/04/21 17:44 Completed CBC W DIFF Stat Lab 05/04/21 17:44 Completed CMP Stat Lab 05/04/21 17:44 Completed CULTURE,URINE Stat Lab 05/04/21 19:05 Received LIPASE Stat Lab 05/04/21 17:44 Completed Lactic Acid Stat Lab 05/04/21 17:35 Completed UA W/RFX UR CULTURE Stat Lab 05/04/21 19:05 Completed Medication Summary Generic Name Dose Route Start Last Admin Trade Name Freq PRN Reason Stop Dose Admin Sodium Chloride 1,000 mls @ 999 mls/hr 05/04/21 18:53 05/04/21 19:01 Sodium Chloride 0.9% 1000 Ml IV 05/04/21 19:53 999 mls/hr .Q1H1M STA Administration Discontinued Medications Generic Name Dose Route Start Last Admin Trade Name Freq PRN Reason Stop Dose Admin Sodium Chloride 1,000 mls @ 999 mls/hr 05/04/21 17:35 05/04/21 18:45 Sodium Chloride 0.9% 1000 Ml IV 05/04/21 18:35 Infused .Q1H1M STA Infusion Sodium Chloride Confirm 05/04/21 17:38 Sodium Chloride 0.9% 1000 Ml Administered 05/04/21 17:39 Dose 1,000 mls @ ud .ROUTE .STK-MED ONE Sodium Chloride Confirm 05/04/21 19:00 Sodium Chloride 0.9% 1000 Ml Administered 05/04/21 19:01 Dose 1,000 mls @ ud .ROUTE .STK-MED ONE Ondansetron HCl 4 mg 05/04/21 17:35 05/04/21 17:40 Ondansetron Hcl 4 Mg/2 Ml Vial IV 05/04/21 17:36 4 mg STAT ONE Administration Ondansetron HCl Confirm 05/04/21 17:38 Ondansetron Hcl 4 Mg/2 Ml Vial Administered 05/04/21 17:39 Dose 4 mg .ROUTE .STK-MED ONE Lab/Rad Data: Laboratory Result Diagrams 05/04/21 17:44 05/04/21 17:44 Laboratory Results 05/04/21 05/04/21 05/04/21 Range/Units 19:05 17:44 17:44 WBC 9.2 (4.0-10.5) K/mm3 RBC 4.65 (4.1-5.4) M/mm3 Hgb 13.5 (12.0-16.0) gm/dl Hct 40.4 (35-47) % MCV 86.9 (78-100) fl MCH 29.0 (26-32) pg MCHC 33.4 (32-36) g/dl RDW 13.4 (11.5-14.0) % Plt Count 223 (150-450) K/mm3 MPV 10.5 (7.5-11.0) fl Gran % 81.0 H (36.0-66.0) % Eos # (Auto) 0.03 (0-0.5) Absolute Lymphs (auto) 1.26 (1.0-4.6) Absolute Monos (auto) 0.46 (0.0-1.3) Lymphocytes % 13.7 L (24.0-44.0) % Monocytes % 5.0 (0.0-12.0) % Eosinophils % 0.3 (0.00-5.0) % Basophils % 0.0 (0.0-0.4) % Absolute Granulocytes 7.48 H (1.4-6.9) Basophils # 0 (0-0.4) Sodium 136 L (137-145) mmol/L Potassium 3.7 (3.5-5.1) mmol/L Chloride 100 (98-107) mmol/L Carbon Dioxide 22 (22-30) mmol/L Anion Gap 17.1 H (5-15) MEQ/L BUN 5 L (7-17) mg/dL Creatinine 0.61 (0.52-1.04) mg/dL Estimated GFR > 60.0 ML/MIN Glucose 99 (74-106) mg/dL Lactic Acid (0.4-2.0) Calcium 9.6 (8.4-10.2) mg/dL Total Bilirubin 1.00 (0.2-1.3) mg/dL AST 22 (14-36) U/L ALT 17 (0-35) U/L Alkaline Phosphatase 55 (38-126) U/L Serum Total Protein 7.9 (6.3-8.2) g/dL Albumin 4.9 (3.5-5.0) g/dL Amylase 82 (30-110) U/L Lipase 65 (23-300) U/L Urine Color YELLOW (YELLOW) Urine Appearance SLIGHTLY CLOUDY (CLEAR) Urine pH 7.0 (5-6) Ur Specific [place] 1.011 (1.005-1.025) Urine Protein NEGATIVE (Negative) Urine Ketones TRACE (NEGATIVE) Urine Blood NEGATIVE (0-5) Conor/ul Urine Nitrite NEGATIVE (NEGATIVE) Urine Bilirubin NEGATIVE (NEGATIVE) Urine Urobilinogen NEGATIVE (0-1) mg/dL Ur Leukocyte Esterase SMALL (NEGATIVE) Urine WBC (Auto) 3-5 (0-5) /HPF Urine RBC (Auto) NONE (0-2) /HPF U Hyaline Cast (Auto) 0-2 (0-2) /LPF U Epithel Cells (Auto) RARE (FEW) /HPF Urine Bacteria (Auto) FEW (NEGATIVE) /HPF Urine Mucus (Auto) SLIGHT (NEGATIVE) /HPF Urine Culture Reflexed YES (NO) Urine Glucose NEGATIVE (NEGATIVE) mg/dL 05/04/21 Range/Units 17:35 WBC (4.0-10.5) K/mm3 RBC (4.1-5.4) M/mm3 Hgb (12.0-16.0) gm/dl Hct (35-47) % MCV (78-100) fl MCH (26-32) pg MCHC (32-36) g/dl RDW (11.5-14.0) % Plt Count (150-450) K/mm3 MPV (7.5-11.0) fl Gran % (36.0-66.0) % Eos # (Auto) (0-0.5) Absolute Lymphs (auto) (1.0-4.6) Absolute Monos (auto) (0.0-1.3) Lymphocytes % (24.0-44.0) % Monocytes % (0.0-12.0) % Eosinophils % (0.00-5.0) % Basophils % (0.0-0.4) % Absolute Granulocytes (1.4-6.9) Basophils # (0-0.4) Sodium (137-145) mmol/L Potassium (3.5-5.1) mmol/L Chloride (98-107) mmol/L Carbon Dioxide (22-30) mmol/L Anion Gap (5-15) MEQ/L BUN (7-17) mg/dL Creatinine (0.52-1.04) mg/dL Estimated GFR ML/MIN Glucose (74-106) mg/dL Lactic Acid 1.3 (0.4-2.0) Calcium (8.4-10.2) mg/dL Total Bilirubin (0.2-1.3) mg/dL AST (14-36) U/L ALT (0-35) U/L Alkaline Phosphatase (38-126) U/L Serum Total Protein (6.3-8.2) g/dL Albumin (3.5-5.0) g/dL Amylase (30-110) U/L Lipase (23-300) U/L Urine Color (YELLOW) Urine Appearance (CLEAR) Urine pH (5-6) Ur Specific [place] (1.005-1.025) Urine Protein (Negative) Urine Ketones (NEGATIVE) Urine Blood (0-5) Conor/ul Urine Nitrite (NEGATIVE) Urine Bilirubin (NEGATIVE) Urine Urobilinogen (0-1) mg/dL Ur Leukocyte Esterase (NEGATIVE) Urine WBC (Auto) (0-5) /HPF Urine RBC (Auto) (0-2) /HPF U Hyaline Cast (Auto) (0-2) /LPF U Epithel Cells (Auto) (FEW) /HPF Urine Bacteria (Auto) (NEGATIVE) /HPF Urine Mucus (Auto) (NEGATIVE) /HPF Urine Culture Reflexed (NO) Urine Glucose (NEGATIVE) mg/dL - Progress Progress: improved, re-examined Progress Note: 05/04/21 19:48 CAT scan of the head without contrast is normal. Counseled pt/family regarding: lab results, diagnosis, need for follow-up, rad results - Departure Departure Disposition: Home Clinical Impression: Vomiting during Condition: Stable Critical Care Time: No Referrals: NELLY SCHRADER DO [Primary Care Provider] - Follow up/PCP as directed Additional Instructions: Drink plenty of fluids. Use your antinausea medication as prescribed. Drink plenty fluids. Follow-up with your primary care physician and vehicle assembler for further management. Prescriptions: Ondansetron ODT 4 MG [Zofran Odt 4 mg] 4 mg PO Q6H PRN PRN #10 tablet PRN Reason: Vomiting
[2021-05-04] MEDS ORDERED: Zofran 4 MG/2 ML VIAL IV ONE (17:35)
[2021-05-04] MEDS ORDERED: Sodium Chloride 0.9% 1000 ML 1,000 ML IV STA ×2 (17:35→18:53)
[2021-05-04] MEDS ORDERED: Zofran 4 MG/2 ML VIAL ONE (17:38)
[2021-05-04] MEDS ORDERED: Sodium Chloride 0.9% 1000 ML 1,000 ML ONE ×2 (17:38→19:00)
[2021-05-04 17:50] LABS: Absolute Neutrophil Ct (ANC) 7.48 (1.4-6.9); Basophil (Absolute #) 0 (0-0.4); Eosinophil % 0.3 % (0.00-5.0); Eosinophil (Absolute #) 0.03 (0-0.5); Hematocrit 40.4 % (35-47); Hemoglobin 13.5 gm/dl (12.0-16.0); Lymphocyte (Absolute #) 1.26 (1.0-4.6); Lymphocytes % 13.7 % (24.0-44.0); Mean Cell Volume 86.9 fl (78-100); Mean Corpuscular Hgb Concent. 33.4 g/dl (32-36); Mean Platelet Volume 10.5 fl (7.5-11.0); Monocyte (Absolute #) 0.46 (0.0-1.3); Platelet Count 223 K/mm3 (150-450); Red Blood Count 4.65 M/mm3 (4.1-5.4); Red Cell Distribution Width 13.4 % (11.5-14.0); White Blood Count 9.2 K/mm3 (4.0-10.5)
[2021-05-04 18:00] LABS: ALBUMIN 4.9 g/dL (3.5-5.0); ALKALINE PHOSPHATASE 55 U/L (38-126); AMYLASE 82 U/L (30-110); ANION GAP 17.1 MEQ/L (5-15); BLOOD UREA NITROGEN 5 mg/dL (7-17); CHLORIDE 100 mmol/L (98-107); Calcium 9.6 mg/dL (8.4-10.2); Carbon Dioxide 22 mmol/L (22-30); Creatinine 1 0.61 mg/dL (0.52-1.04); EST GLOMERULAR FILTRATION RATE > 60.0 ML/MIN; Glucose 99 mg/dL (74-106); LIPASE 65 U/L (23-300); Potassium 3.7 mmol/L (3.5-5.1); SGOT/AST 22 U/L (14-36); SGPT/ALT 17 U/L (0-35); SODIUM 136 mmol/L (137-145); Total Protein 7.9 g/dL (6.3-8.2)
[2021-05-04 19:25] LABS: Appearance SLIGHTLY CLOUDY (CLEAR); Bacteria FEW /HPF (NEGATIVE); Bilirubin NEGATIVE (NEGATIVE); Blood NEGATIVE Ery/ul (0-5); Epithelial Cells RARE /HPF (FEW); Glucose NEGATIVE (NEGATIVE); Hyaline Casts 0-2 /LPF (0-2); Ketones TRACE (NEGATIVE); Leukocyte Esterase SMALL (NEGATIVE); Mucus SLIGHT /HPF (NEGATIVE); Nitrite NEGATIVE (NEGATIVE); Protein,Urine Dip NEGATIVE (Negative); Specific Gravity 1.011 (1.005-1.025); Urobilinogen NEGATIVE mg/dL (0-1)
[2021-05-04 20:02] VITALS: BP 121/71; PULSE 70; O2SAT 100
--- NOTE | 2021-05-05 08:47 | XRAY ---
Indication: Head injury following fall. Loss of consciousness and memory loss. 9 weeks . Multiple contiguous axial images obtained through the head without contrast. Patient's torso was shielded with lead apron. Comparison: None Normal appearing brain parenchyma, ventricles, and bony calvarium. Visualized paranasal sinuses and mastoid air cells are clear. Impression: Normal CT head without contrast exam.
== END 2021-05-04 20:09 | disposition home or self-care (01) ==
LOC: ED 16:50
DX: O26.891 Other specified pregnancy related conditions, first trimester (principal); Z3A.01 Less than 8 weeks gestation of pregnancy; O21.9 Vomiting of pregnancy, unspecified; W18.30XA Fall on same level, unspecified, initial encounter; R55 Syncope and collapse; R53.1 Weakness
CPT/HCPCS: 36000; 36415; 70450; 80053; 81001; 82150; 83605; 83690; 85025; 87086; 96360; 96374; 99284; J2405

== ENCOUNTER 2021-06-27 15:03 | Emergency (ER) | payer OTHER ==
[2021-06-27 15:38] LABS: Absolute Neutrophil Ct (ANC) 8.09 (1.4-6.9); Basophil (Absolute #) 0.01 (0-0.4); Eosinophil % 0.2 % (0.00-5.0); Eosinophil (Absolute #) 0.02 (0-0.5); Hematocrit 34.4 % (35-47); Hemoglobin 11.9 gm/dl (12.0-16.0); Lymphocyte (Absolute #) 0.83 (1.0-4.6); Lymphocytes % 8.7 % (24.0-44.0); Mean Cell Volume 88.4 fl (78-100); Mean Corpuscular Hemoglobin 30.6 pg (26-32); Mean Corpuscular Hgb Concent. 34.6 g/dl (32-36); Mean Platelet Volume 9.5 fl (7.5-11.0); Monocyte (Absolute #) 0.55 (0.0-1.3); Monocytes % 5.8 % (0.0-12.0); Neutrophil % 85.2 % (36.0-66.0); Platelet Count 222 K/mm3 (150-450); Red Blood Count 3.89 M/mm3 (4.1-5.4); Red Cell Distribution Width 13.8 % (11.5-14.0); White Blood Count 9.5 K/mm3 (4.0-10.5)
[2021-06-27 16:02] LABS: COVID AG -BINAX NOW RAPID TEST NEGATIVE (NEGATIVE)
[2021-06-27 16:04] LABS: ALBUMIN 4.1 g/dL (3.5-5.0); ALKALINE PHOSPHATASE 77 U/L (38-126); ANION GAP 14.1 MEQ/L (5-15); BLOOD UREA NITROGEN 7 mg/dL (7-17); CHLORIDE 101 mmol/L (98-107); Calcium 9.3 mg/dL (8.4-10.2); Carbon Dioxide 25 mmol/L (22-30); Creatinine 1 0.54 mg/dL (0.52-1.04); EST GLOMERULAR FILTRATION RATE > 60.0 ML/MIN; Glucose 89 mg/dL (74-106); Potassium 3.5 mmol/L (3.5-5.1); SGOT/AST 27 U/L (14-36); SGPT/ALT 33 U/L (0-35); SODIUM 136 mmol/L (137-145); Total Protein 7.1 g/dL (6.3-8.2)
[2021-06-27 16:23] LABS: INFLUENZA A NEGATIVE (NEGATIVE); INFLUENZA B NEGATIVE (NEGATIVE)
--- NOTE | 2021-06-27 16:26 | ERPHSYRPT ---
- History of Present Illness Time Seen by Provider: 06/27/21 15:20 Source: patient Exam Limitations: no limitations Patient Subjective Stated Complaint: pt here for cough, sob,vomiting. she states she has been ill for 2 weeks, she is 16 and 6 days Triage Nursing Assessment: pt alert, resp labored with excertion at times. face mask in place, skin w/d/p,no edema noted Physician History: Patient is a 21-year-old female who is 3 para 0 AB 2 who presents with 2 weeks of coughing vomiting shortness of breath. She also complains of sore throat headache and worsening cough. She was tested for COVID on Monday and was found to be negative. She is 17 weeks . Timing/Duration: week(s) (2) Cough Quality/Degree: dry cough Possible Cause: occasional episodes Modifying Factors: Improves With: coughing Associated Symptoms: cough, shortness of breath Allergies/Adverse Reactions: Iodinated Contrast Media Allergy (Severe, Verified 06/27/21 15:24) Swelling aspirin Allergy (Intermediate, Verified 06/27/21 15:24) Swelling kiwi Allergy (Intermediate, Verified 06/27/21 15:24) peanut Allergy (Verified 06/27/21 15:24) acetaminophen [From Theraflu Day-Night Cold,Cough] Adverse Reaction (Mild, Verified 06/27/21 15:24) Vomiting dextromethorphan [From Theraflu Day-Night Cold,Cough] Adverse Reaction (Mild, Verified 06/27/21 15:24) Vomiting diphenhydramine [From Theraflu Day-Night Cold,Cough] Adverse Reaction (Mild, Verified 06/27/21 15:24) Vomiting guaifenesin [From Mucinex] Adverse Reaction (Mild, Verified 06/27/21 15:24) Nausea and Vomiting ibuprofen [From Advil] Adverse Reaction (Mild, Verified 06/27/21 15:24) Headache phenylephrine [From Theraflu Day-Night Cold,Cough] Adverse Reaction (Mild, Verified 06/27/21 15:24) Vomiting Home Medications: Cyanocobalamin (Vitamin B-12) [Vitamin B-12] 1,000 mcg PO DAILY 03/03/21 [History] Hx Tetanus, Diphtheria Vaccination/Date Given: Yes Hx Influenza Vaccination/Date Given: No Hx Pneumococcal Vaccination/Date Given: No Travel Risk - International Travel Have you traveled outside of the country in past 3 weeks: No - Coronavirus Screening Are you exhibiting any of the following symptoms?: Yes Symptoms: Cough: New Onset, Shortness of Breath, Vomiting/Diarrhea Close contact with a COVID-19 positive Pt in past 14-21 Days: No - Vaccine Status Have you recieved a Covid-19 vaccination: No - Review of Systems Constitutional: No Fever, No Chills Eyes: No Symptoms Ears, Nose, & Throat: No Symptoms, Nose Congestion, Nose Discharge, Hoarse, Painful Swallowing Respiratory: Cough, Dyspnea Cardiac: No Chest Pain, No Edema, No Syncope Abdominal/Gastrointestinal: Nausea, Vomiting, No Abdominal Pain, No Diarrhea Genitourinary Symptoms: No Dysuria Musculoskeletal: No Back Pain, No Neck Pain Skin: No Rash Neurological: No Dizziness, No Focal Weakness, No Sensory Changes Psychological: No Symptoms Endocrine: No Symptoms All Other Systems: Reviewed and Negative - Past Medical History Pertinent Past Medical History: Yes Neurological History: No Pertinent History ENT History: No Pertinent History Cardiac History: No Pertinent History Respiratory History: No Pertinent History Endocrine Medical History: No Pertinent History Musculoskeletal History: No Pertinent History GI Medical History: No Pertinent History History: No Pertinent History Psycho-Social History: No Pertinent History Female Reproductive Disorders: No Pertinent History Other Medical History: HX of Ovarian Cysts - Past Surgical History Past Surgical History: Yes Neuro Surgical History: No Pertinent History Cardiac: No Pertinent History Respiratory: No Pertinent History Gastrointestinal: No Pertinent History Genitourinary: No Pertinent History Musculoskeletal: No Pertinent History Female Surgical History: Dilation & Curettage Other Surgical History: HX Laproscopic procedure to look at ovaries - Social History Smoking Status: Former smoker Exposure to second hand smoke: No Drug Use: none Patient Lives Alone: No Significant Family History: no pertinent family hx - Female History Hx Last Menstrual Period: 02/04/2021 Hx Now: Yes Expected Date of Delivery: 12/06/21 - Nursing Vital Signs Nursing Vital Signs: Initial Vital Signs Temperature 98.6 F 06/27/21 15:15 Pulse Rate 66 06/27/21 15:15 Respiratory Rate 18 06/27/21 15:15 Blood Pressure 108/75 06/27/21 15:15 O2 Sat by Pulse Oximetry 98 06/27/21 15:15 Pain Scale Pain Intensity 4 - Physical Exam General Appearance: mild distress, alert Eye Exam: PERRL/EOMI, eyes nml inspection Ears, Nose, Throat Exam: normal ENT inspection, TMs normal, pharynx normal, moist mucous membranes Neck Exam: normal inspection, non-tender, supple, full range of motion Respiratory Exam: normal breath sounds, lungs clear, No respiratory distress Cardiovascular Exam: regular rate/rhythm, normal heart sounds Gastrointestinal/Abdomen Exam: soft, other ( heart tones positive), No tenderness Back Exam: normal inspection, No CVA tenderness, No vertebral tenderness Extremity Exam: normal inspection, normal range of motion Neurologic Exam: alert, oriented x 3, cooperative, normal mood/affect, sensation nml, No motor deficits Skin Exam: normal color, warm, dry, No rash Lymphatic Exam: No adenopathy SpO2: 98 - Course Nursing assessment & vital signs reviewed: Yes Ordered Tests: Active Orders 24 hr Category Date Time Status CBC W DIFF Stat Lab 06/27/21 15:30 Completed CMP Stat Lab 06/27/21 15:30 Completed COVID AG-BINAX NOW RAPID TEST Stat Lab 06/27/21 15:23 Completed INFLUENZA A+B ABBY Stat Lab 06/27/21 15:23 Completed Lactic Acid Stat Lab 06/27/21 15:16 Completed PROCALCITONIN Stat Lab 06/27/21 15:30 Completed UA W/RFX UR CULTURE Stat Lab 06/27/21 16:33 Received Lab/Rad Data: Laboratory Result Diagrams 06/27/21 15:30 06/27/21 15:30 Laboratory Results 06/27/21 06/27/21 06/27/21 Range/Units 15:30 15:30 15:30 WBC 9.5 (4.0-10.5) K/mm3 RBC 3.89 L (4.1-5.4) M/mm3 Hgb 11.9 L (12.0-16.0) gm/dl Hct 34.4 L (35-47) % MCV 88.4 (78-100) fl MCH 30.6 (26-32) pg MCHC 34.6 (32-36) g/dl RDW 13.8 (11.5-14.0) % Plt Count 222 (150-450) K/mm3 MPV 9.5 (7.5-11.0) fl Gran % 85.2 H (36.0-66.0) % Eos # (Auto) 0.02 (0-0.5) Absolute Lymphs (auto) 0.83 L (1.0-4.6) Absolute Monos (auto) 0.55 (0.0-1.3) Lymphocytes % 8.7 L (24.0-44.0) % Monocytes % 5.8 (0.0-12.0) % Eosinophils % 0.2 (0.00-5.0) % Basophils % 0.1 (0.0-0.4) % Absolute Granulocytes 8.09 H (1.4-6.9) Basophils # 0.01 (0-0.4) Sodium 136 L (137-145) mmol/L Potassium 3.5 (3.5-5.1) mmol/L Chloride 101 (98-107) mmol/L Carbon Dioxide 25 (22-30) mmol/L Anion Gap 14.1 (5-15) MEQ/L BUN 7 (7-17) mg/dL Creatinine 0.54 (0.52-1.04) mg/dL Estimated GFR > 60.0 ML/MIN Glucose 89 (74-106) mg/dL Lactic Acid (0.4-2.0) Calcium 9.3 (8.4-10.2) mg/dL Total Bilirubin 0.80 (0.2-1.3) mg/dL AST 27 (14-36) U/L ALT 33 (0-35) U/L Alkaline Phosphatase 77 (38-126) U/L Serum Total Protein 7.1 (6.3-8.2) g/dL Albumin 4.1 (3.5-5.0) g/dL Procalcitonin 0.071 (0.030-0.080) ng/mL Influenza Type A Ag (NEGATIVE) Influenza Type B Ag (NEGATIVE) SARS-CoV-2 Ag (Rapid) (NEGATIVE) 06/27/21 06/27/21 06/27/21 Range/Units 15:23 15:23 15:16 WBC (4.0-10.5) K/mm3 RBC (4.1-5.4) M/mm3 Hgb (12.0-16.0) gm/dl Hct (35-47) % MCV (78-100) fl MCH (26-32) pg MCHC (32-36) g/dl RDW (11.5-14.0) % Plt Count (150-450) K/mm3 MPV (7.5-11.0) fl Gran % (36.0-66.0) % Eos # (Auto) (0-0.5) Absolute Lymphs (auto) (1.0-4.6) Absolute Monos (auto) (0.0-1.3) Lymphocytes % (24.0-44.0) % Monocytes % (0.0-12.0) % Eosinophils % (0.00-5.0) % Basophils % (0.0-0.4) % Absolute Granulocytes (1.4-6.9) Basophils # (0-0.4) Sodium (137-145) mmol/L Potassium (3.5-5.1) mmol/L Chloride (98-107) mmol/L Carbon Dioxide (22-30) mmol/L Anion Gap (5-15) MEQ/L BUN (7-17) mg/dL Creatinine (0.52-1.04) mg/dL Estimated GFR ML/MIN Glucose (74-106) mg/dL Lactic Acid 0.9 (0.4-2.0) Calcium (8.4-10.2) mg/dL Total Bilirubin (0.2-1.3) mg/dL AST (14-36) U/L ALT (0-35) U/L Alkaline Phosphatase (38-126) U/L Serum Total Protein (6.3-8.2) g/dL Albumin (3.5-5.0) g/dL Procalcitonin (0.030-0.080) ng/mL Influenza Type A Ag NEGATIVE (NEGATIVE) Influenza Type B Ag NEGATIVE (NEGATIVE) SARS-CoV-2 Ag (Rapid) NEGATIVE (NEGATIVE) - Progress Progress: improved Blood Culture(s) Obtained: No Antibiotics given: Yes - Departure Departure Disposition: Home Clinical Impression: Bronchitis Condition: Stable Critical Care Time: No Referrals: NELLY SCHRADER DO [Primary Care Provider] - Follow up/PCP as directed Instructions: Acute Bronchitis, Adult (DC) Prescriptions: Ondansetron ODT 4 MG [Zofran Odt 4 mg] 4 mg PO Q6H PRN PRN 4 Days #10 tablet PRN Reason: Vomiting Ondansetron ODT 4 MG [Zofran Odt 4 mg] 4 mg PO Q6H PRN PRN 7 Days #10 tablet PRN Reason: Vomiting Cephalexin Mh 500 mg [Keflex 500 mg] 500 mg PO TID #21 cap Cephalexin Mh 500 mg [Keflex 500 mg] 500 mg PO TID #21 cap
[2021-06-27 16:37] VITALS: BP 112/81; PULSE 92
[2021-06-27 16:57] VITALS: O2SAT 98
[2021-06-27 17:05] LABS: Appearance CLOUDY (CLEAR); Bacteria FEW /HPF (NEGATIVE); Bilirubin SMALL (NEGATIVE); Blood NEGATIVE Ery/ul (0-5); Epithelial Cells RARE /HPF (FEW); Glucose NEGATIVE (NEGATIVE); Ketones TRACE (NEGATIVE); Leukocyte Esterase MODERATE (NEGATIVE); Mucus MANY /HPF (NEGATIVE); Nitrite NEGATIVE (NEGATIVE); Protein,Urine Dip 100 (Negative); Specific Gravity 1.031 (1.005-1.025); Urobilinogen 4 mg/dL (0-1); WBC 26-50 /HPF (0-5)
== END 2021-06-27 17:07 | disposition home or self-care (01) ==
LOC: ED 15:03
DX: O99.512 Diseases of the respiratory system complicating pregnancy, second trimester (principal); Z3A.17 17 weeks gestation of pregnancy; J20.9 Acute bronchitis, unspecified; R05.9 Cough, unspecified; R06.02 Shortness of breath
CPT/HCPCS: 36415; 80053; 81001; 83605; 84145; 85025; 87086; 87400; 99000; 99283

== ENCOUNTER 2021-09-26 19:28 | Observation (INO) | payer OTHER ==
[2021-09-26 19:59] VITALS: BP 123/76; PULSE 107
== END 2021-09-26 20:53 | disposition home or self-care (01) ==
LOC: OB 19:28
PROVIDERS: ADMIT Obstetrics & Gynecology; ATTEND Obstetrics & Gynecology
DX: Z34.83 Encounter for supervision of other normal pregnancy, third trimester (principal); Z3A.29 29 weeks gestation of pregnancy
CPT/HCPCS: G0378

== ENCOUNTER 2021-10-13 22:37 | Observation (INO) | payer OTHER ==
[2021-10-13] MEDS ORDERED: Lactated Ringers 500 ML IV ONE ×2 (23:33→23:34)
[2021-10-14 00:21] LABS: Amphetamine,Urine NEGATIVE (NEGATIVE); Barbiturate,Urine NEGATIVE (NEGATIVE); Benzodiazepine,Urine NEGATIVE (NEGATIVE); Cocaine,Urine NEGATIVE (NEGATIVE); Methadone,Urine NEGATIVE (NEGATIVE); Opiate,Urine NEGATIVE (NEGATIVE); PCP,Urine NEGATIVE (NEGATIVE); THC,Urine NEGATIVE (NEGATIVE)
[2021-10-14 00:36] LABS: Epithelial Cells RARE /HPF (FEW); Mucus SLIGHT /HPF (NEGATIVE)
[2021-10-14 00:37] LABS: Appearance CLEAR (CLEAR); Bilirubin NEGATIVE (NEGATIVE); Glucose NEGATIVE (NEGATIVE); Ketones SMALL-15 (NEGATIVE); RBC NEGATIVE Ery/ul (0-5); Specific Gravity >=1.030 (1.005-1.025)
[2021-10-14 00:38] LABS: Dipstick done @ ? MAIN LAB; Nitrite NEGATIVE (NEGATIVE); Ph 6.5 (5-6); Protein,Urine Dip 30 (Negative); Urine Cultured Indicated? NO; Urobilinogen 2 mg/dL (0-1)
[2021-10-14] MEDS ORDERED: BRETHINE 1 MG/ML SQ ONE (01:20)
[2021-10-14 01:40] VITALS: O2SAT 100
[2021-10-14 03:19] VITALS: BP 112/72; PULSE 109
== END 2021-10-14 02:50 | disposition home or self-care (01) ==
LOC: MED SURG 22:37 → UNDOADMOB 22:37 → UNDODISOB 10-14 02:50
PROVIDERS: ADMIT Obstetrics & Gynecology; ATTEND Obstetrics & Gynecology
DX: Z34.83 Encounter for supervision of other normal pregnancy, third trimester (principal); Z3A.32 32 weeks gestation of pregnancy
CPT/HCPCS: 80307; 81015; 84112; G0378; 99213

== ENCOUNTER 2021-10-14 14:44 | Observation (INO) | payer OTHER ==
[2021-10-14 16:30] VITALS: BP 108/71; PULSE 108; O2SAT 100
== END 2021-10-14 15:40 | disposition home or self-care (01) ==
LOC: OB 14:44
PROVIDERS: ADMIT Obstetrics & Gynecology; ATTEND Obstetrics & Gynecology
DX: Z34.83 Encounter for supervision of other normal pregnancy, third trimester (principal); Z3A.32 32 weeks gestation of pregnancy
CPT/HCPCS: G0378

== ENCOUNTER 2021-12-01 23:41 | Observation (INO) | payer OTHER ==
[2021-12-02 00:42] LABS: Amphetamine,Urine NEGATIVE (NEGATIVE); Barbiturate,Urine NEGATIVE (NEGATIVE); Benzodiazepine,Urine NEGATIVE (NEGATIVE); Cocaine,Urine NEGATIVE (NEGATIVE); Methadone,Urine NEGATIVE (NEGATIVE); Opiate,Urine NEGATIVE (NEGATIVE); PCP,Urine NEGATIVE (NEGATIVE); THC,Urine NEGATIVE (NEGATIVE)
[2021-12-02 00:45] LABS: Amourphous Crystal FEW /HPF (NEGATIVE); Epithelial Cells RARE /HPF (FEW); Mucus SLIGHT /HPF (NEGATIVE)
[2021-12-02 00:48] LABS: Appearance CLOUDY (CLEAR); Bilirubin NEGATIVE (NEGATIVE); Dipstick done @ ? MAIN LAB; Glucose NEGATIVE (NEGATIVE); Ketones NEGATIVE (NEGATIVE); Nitrite NEGATIVE (NEGATIVE); Ph 7.5 (5-6); Protein,Urine Dip TRACE (Negative); RBC TRACE-INTACT Ery/ul (0-5); Urobilinogen 1 mg/dL (0-1)
[2021-12-02 00:49] LABS: RBC NONE SEEN /HPF (0-2); Urine Cultured Indicated? YES
[2021-12-02] MEDS ORDERED: Tums EX 750 MG PO PRN (01:48)
[2021-12-02] MEDS ORDERED: ZOFRAN ODT 4 MG PO PRN (02:12)
[2021-12-02 05:04] VITALS: BP 106/57; PULSE 66; O2SAT 95
== END 2021-12-02 07:45 | disposition home or self-care (01) ==
LOC: OB 23:41
PROVIDERS: ADMIT Obstetrics & Gynecology; ATTEND Obstetrics & Gynecology
DX: Z34.83 Encounter for supervision of other normal pregnancy, third trimester (principal); Z3A.39 39 weeks gestation of pregnancy
CPT/HCPCS: 80307; 81015; 84112; 87086; G0378; Q0162; A9270-GY

== ENCOUNTER 2021-12-02 16:56 | Observation (INO) | payer OTHER ==
[2021-12-02 17:47] VITALS: BP 117/80; PULSE 93; O2SAT 95
[2021-12-02 18:04] LABS: Amphetamine,Urine NEGATIVE (NEGATIVE); Barbiturate,Urine NEGATIVE (NEGATIVE); Benzodiazepine,Urine NEGATIVE (NEGATIVE); Cocaine,Urine NEGATIVE (NEGATIVE); Methadone,Urine NEGATIVE (NEGATIVE); Opiate,Urine NEGATIVE (NEGATIVE); PCP,Urine NEGATIVE (NEGATIVE); THC,Urine NEGATIVE (NEGATIVE)
== END 2021-12-02 19:30 | disposition home or self-care (01) ==
LOC: OB 16:56
PROVIDERS: ADMIT Obstetrics & Gynecology; ATTEND Obstetrics & Gynecology
DX: Z34.83 Encounter for supervision of other normal pregnancy, third trimester (principal); Z3A.39 39 weeks gestation of pregnancy
CPT/HCPCS: 80307; 84112; G0378

== ENCOUNTER 2021-12-07 00:56 | Inpatient (IN) | payer OTHER ==
[2021-12-07] MEDS ORDERED: CYTOTEC PO SCH (16:30)
[2021-12-07 17:34] LABS: Absolute Neutrophil Ct (ANC) 8.41 x10^3/uL (1.4-6.9); Basophil (Absolute #) 0.01 x10^3/uL (0-0.4); Eosinophil % 0.1 % (0.00-5.0); Eosinophil (Absolute #) 0.01 x10^3/uL (0-0.5); Hematocrit 25.9 % (35-47); Lymphocyte (Absolute #) 1.12 x10^3/uL (1.0-4.6); Lymphocytes % 11.1 % (24.0-44.0); Mean Cell Volume 75.3 fL (78-100); Mean Corpuscular Hemoglobin 23.3 pg (26-32); Mean Corpuscular Hgb Concent. 30.9 g/dL (32-36); Mean Platelet Volume 11.4 fL (7.5-11.0); Monocyte (Absolute #) 0.49 x10^3/uL (0.0-1.3); Monocytes % 4.8 % (0.0-12.0); Platelet Count 167 x10^3/uL (150-450); Red Blood Count 3.44 x10^6/uL (4.1-5.4); Red Cell Distribution Width 15.4 % (11.5-14.0); White Blood Count 10.1 x10^3/uL (4.0-10.5)
[2021-12-07] MEDS ORDERED: Zofran 4 MG/2 ML VIAL IV PRN (18:00)
[2021-12-07] MEDS: CYTOTEC PO SCH ×2 (18:10→20:32)
[2021-12-07 18:44] LABS: ABO TYPING O; Antibody Screen NEGATIVE (NEGATIVE); RH TYPING POSITIVE
[2021-12-07 19:48] LABS: Amphetamine,Urine NEGATIVE (NEGATIVE); Barbiturate,Urine NEGATIVE (NEGATIVE); Benzodiazepine,Urine NEGATIVE (NEGATIVE); Cocaine,Urine NEGATIVE (NEGATIVE); Methadone,Urine NEGATIVE (NEGATIVE); Opiate,Urine NEGATIVE (NEGATIVE); PCP,Urine NEGATIVE (NEGATIVE); THC,Urine NEGATIVE (NEGATIVE)
[2021-12-07] MEDS ORDERED: STADOL 2 MG IV PRN (23:22)
[2021-12-08] MEDS ORDERED: Lactated Ringers 1,000 ML IV ONE ×3 (02:05→07:00)
[2021-12-08] MEDS: Lactated Ringers 1,000 ML IV SCH ×2 (03:01→10:58)
[2021-12-08] MEDS: CYTOTEC PO SCH ×3 (05:11→05:40)
[2021-12-08] MEDS: PITOCIN 30 UNITS/ LR 500 ML 30 UNITS/500 ML PLAST..BAG IV SCH (06:54)
[2021-12-08] MEDS ORDERED: BRETHINE 1 MG/ML SQ PRN (07:00)
[2021-12-08] MEDS ORDERED: PITOCIN 30 UNITS/ LR 500 ML 30 UNITS/500 ML PLAST..BAG IV SCH (07:00)
[2021-12-08] MEDS ORDERED: Ephedrine Sulfate 50 MG/ML IV PRN (08:00)
[2021-12-08] MEDS ORDERED: XYLOCAINE 1% HCL 20 ML MDV IJ PRN (08:00)
[2021-12-08] MEDS ORDERED: FENTANYL 2 MCG-BUPIV 0.125%-NS 250 ML Epidur 250 ML EPIDURAL SCH (08:00)
[2021-12-08] MEDS ORDERED: LANSINOH 40 GM TOP PRN (13:02)
[2021-12-08] MEDS ORDERED: Dermoplast Spray TP PRN (13:02)
[2021-12-08] MEDS ORDERED: Dulcolax 10 MG SUPP PR PRN (13:02)
[2021-12-08] MEDS ORDERED: Mylicon 80MG PO PRN (13:02)
[2021-12-08] MEDS ORDERED: TUCKS TP PRN (13:02)
[2021-12-08 14:50] LABS: Epithelial Cells RARE /HPF (FEW); RBC 0-2 /HPF (0-2); WBC 0-2 /HPF (0-5)
[2021-12-08 15:19] LABS: Appearance CLEAR (CLEAR); Bilirubin NEGATIVE (NEGATIVE); Glucose NEGATIVE (NEGATIVE); Ketones MODERATE-40 (NEGATIVE); Nitrite NEGATIVE (NEGATIVE); Protein,Urine Dip NEGATIVE (Negative); RBC SMALL Ery/ul (0-5); Urine Cultured Indicated? NO; Urobilinogen 0.2 mg/dL (0-1)
[2021-12-08 15:20] LABS: Dipstick done @ ? MAIN LAB
[2021-12-08] MEDS ORDERED: Adacel Vial IM ONE (16:00)
[2021-12-08] MEDS: MOTRIN 400 MG PO PRN (17:08)
[2021-12-09] MEDS: Docusate Sodium 100 MG PO SCH ×2 (00:30→11:44)
[2021-12-09] MEDS: TYLENOL EXTRA STRENGTH 500 MG PO PRN (00:33)
[2021-12-09 05:13] LABS: Absolute Neutrophil Ct (ANC) 13.15 x10^3/uL (1.4-6.9); Basophil (Absolute #) 0.01 x10^3/uL (0-0.4); Eosinophil % 0.1 % (0.00-5.0); Eosinophil (Absolute #) 0.01 x10^3/uL (0-0.5); Hematocrit 24.8 % (35-47); Hemoglobin 7.6 g/dL (12.0-16.0); Lymphocyte (Absolute #) 1.67 x10^3/uL (1.0-4.6); Lymphocytes % 10.7 % (24.0-44.0); Mean Cell Volume 76.1 fL (78-100); Mean Corpuscular Hemoglobin 23.3 pg (26-32); Mean Corpuscular Hgb Concent. 30.6 g/dL (32-36); Mean Platelet Volume 11.2 fL (7.5-11.0); Monocyte (Absolute #) 0.65 x10^3/uL (0.0-1.3); Monocytes % 4.2 % (0.0-12.0); Platelet Count 208 x10^3/uL (150-450); Red Blood Count 3.26 x10^6/uL (4.1-5.4); Red Cell Distribution Width 15.9 % (11.5-14.0); White Blood Count 15.6 x10^3/uL (4.0-10.5)
[2021-12-09] MEDS: MOTRIN 400 MG PO PRN ×2 (05:44→18:21)
--- NOTE | 2021-12-09 07:56 | PCM.NOTE ---
Date and Time: 12/09/21 0755 Subjective Assessment: PPD 1 SP PT RESTING IN BED AND DOING WELL VSS AFEBRILE ABD; SOFT UTERUS; FIRM LOCHIA; MILD A/P SP PPD 1 CHRONIC ANEMIA ANTICIPATE DISCHARGE TOMORROW IRON SUPPLEMENTATION OBJECTIVE DATA Vital Signs: Vital Signs - 24 hr Temp Pulse Resp BP BP Pulse Ox 12/09/21 03:00 97.3 F 80 16 109/70 97 12/08/21 22:58 97.7 F 75 16 116/66 98 12/08/21 19:00 97.6 F 83 16 107/63 98 12/08/21 15:00 98.2 F 95 H 18 106/67 98 12/08/21 14:00 98.2 F 100 H 18 121/58 98 12/08/21 13:15 98.2 F 105 H 18 117/80 12/08/21 13:00 98.2 F 98 H 18 112/70 12/08/21 12:45 98.2 F 129 H 18 109/73 99 12/08/21 12:30 98.2 F 104 H 18 113/69 99 12/08/21 12:15 97.6 F 86 16 127/70 98 12/08/21 12:00 97.6 F 86 16 127/70 98 12/08/21 11:45 98.2 F 118 H 18 178/93 12/08/21 11:30 98.2 F 108 H 18 129/63 12/08/21 10:45 98.5 F 72 18 131/76 12/08/21 10:30 98.5 F 72 18 131/76 12/08/21 10:15 98.5 F 88 18 116/64 12/08/21 10:00 98.5 F 96 H 18 198/92 12/08/21 09:45 98.5 F 82 18 148/70 12/08/21 09:30 98.5 F 84 18 124/81 12/08/21 09:15 98.5 F 87 18 131/82 12/08/21 09:00 98.5 F 117 H 18 163/85 12/08/21 08:30 98.5 F 121 H 18 131/84 12/08/21 08:00 98.5 F 121 H 18 131/84 Pain Assessment - Last Documented Pain Intensity [Abdomen] 4 Pain Intensity 0 Pain Scale Used 0-10 Pain Scale Intake and Output: Intake & Output 12/06/21 12/07/21 12/08/21 12/09/21 11:59 11:59 11:59 11:59 Intake Total 1166 540 Output Total 200 Balance 966 540 Weight 61.235 kg Lab Results: Lab Results-Last 24 Hours 12/08/21 12/09/21 Range/Units Unknown 05:14 WBC 15.6 H (4.0-10.5) x10^3/uL RBC 3.26 L (4.1-5.4) x10^6/uL Hgb 7.6 L (12.0-16.0) g/dL Hct 24.8 L (35-47) % MCV 76.1 L (78-100) fL MCH 23.3 L (26-32) pg MCHC 30.6 L (32-36) g/dL RDW 15.9 H (11.5-14.0) % Plt Count 208 (150-450) x10^3/uL MPV 11.2 H (7.5-11.0) fL Gran % 84.0 H (36.0-66.0) % Immature Gran % (Auto) 0.9 H (0.00-0.4) % Nucleat RBC Rel Count 0.0 (0.00-0.1) % Eos # (Auto) 0.01 (0-0.5) x10^3/uL Immature Gran # (Auto) 0.14 H (0.00-0.03) x10^3u/L Absolute Lymphs (auto) 1.67 (1.0-4.6) x10^3/uL Absolute Monos (auto) 0.65 (0.0-1.3) x10^3/uL Absolute Nucleated RBC 0.00 (0.00-0.01) x10^3u/L Lymphocytes % 10.7 L (24.0-44.0) % Monocytes % 4.2 (0.0-12.0) % Eosinophils % 0.1 (0.00-5.0) % Basophils % 0.1 (0.0-0.4) % Absolute Granulocytes 13.15 H (1.4-6.9) x10^3/uL Basophils # 0.01 (0-0.4) x10^3/uL Urinalys Dipstick Clnc MAIN LAB Urine Color YELLOW (YELLOW) Urine Appearance CLEAR (CLEAR) Urine pH 7.0 (5-6) Ur Specific [place] 1.010 (1.005-1.025) POC Urine Protein Conf NEGATIVE (Negative) Urine Ketones MODERATE-40 (NEGATIVE) Urine Nitrite NEGATIVE (NEGATIVE) Urine Bilirubin NEGATIVE (NEGATIVE) Urine Urobilinogen 0.2 (0-1) mg/dL Urine Leukocytes NEGATIVE (NEGATIVE) Urine WBC (Auto) 0-2 (0-5) /HPF Urine RBC (Auto) 0-2 (0-2) /HPF U Epithel Cells (Auto) RARE (FEW) /HPF Urine RBC SMALL (0-5) Conor/ul Ur Culture Indicated? NO Urine Glucose NEGATIVE (NEGATIVE) mg/dL Assessment/Plan (1) Vaginal delivery Current Visit: Yes Status: Acute Code(s): O80 - ENCOUNTER FOR FULL-TERM UNCOMPLICATED DELIVERY (2) Anemia affecting Current Visit: Yes Status: Acute Code(s): O99.019 - ANEMIA COMPLICATING , UNSPECIFIED TRIMESTER
[2021-12-09 09:39] LABS: HBsAg Screen Negative (Negative)
[2021-12-09] MEDS: FERREX 150 PO SCH (11:47)
[2021-12-10] MEDS: Lactated Ringers 1,000 ML IV SCH ×2 (02:46→02:47)
[2021-12-10] MEDS: PITOCIN 30 UNITS/ LR 500 ML 30 UNITS/500 ML PLAST..BAG IV SCH (02:47)
[2021-12-10] MEDS: Docusate Sodium 100 MG PO SCH ×3 (02:48→22:04)
--- NOTE | 2021-12-10 07:26 | PCM.NOTE ---
Date and Time: 12/10/21725 Subjective Assessment: ppd 1 pt resting in bed and doing well vss afebrile abd; soft uterus; firm lochia; mild a/p sp ppd 2 dc home today fu office 3 wks OBJECTIVE DATA Vital Signs: Vital Signs - 24 hr Temp Pulse Resp BP Pulse Ox 12/10/21 02:00 97.8 F 88 16 110/63 99 12/09/21 20:00 97.9 F 94 H 16 114/72 100 12/09/21 14:00 97.4 F 100 H 16 92/53 98 12/09/21 09:00 98.8 F 79 15 104/55 99 12/09/21 08:00 98.8 F 79 15 104/55 99 Pain Assessment - Last Documented Pain Intensity [Abdomen] 4 Pain Intensity 2 Pain Scale Used 0-10 Pain Scale Intake and Output: Intake & Output 12/07/21 12/08/21 12/09/21 12/10/21 11:59 11:59 11:59 11:59 Intake Total 6441 015 6934 Output Total 200 Balance 289 020 5533 Weight 61.235 kg Lab Results: Lab Results-Last 24 Hours 12/07/21 Range/Units 17:25 Hep Bs Antigen Negative (Negative) Assessment/Plan (1) Vaginal delivery Current Visit: Yes Status: Acute Code(s): O80 - ENCOUNTER FOR FULL-TERM UNCOMPLICATED DELIVERY (2) Anemia affecting Current Visit: Yes Status: Acute Code(s): O99.019 - ANEMIA COMPLICATING , UNSPECIFIED TRIMESTER
--- NOTE | 2021-12-10 07:31 | PCM.DS ---
Discharge Summary Date of Admission: 12/08/21 00:00 Admitting Physician: JESSIKA HANKINS DO Consults: Consults on Case 12/08/21 08:00 Notify Anesthesia Provider PRN 12/08/21 16:03 Navigation ONCE Primary Care Provider: NELLY SCHRADER DO Allergies Allergies Iodinated Contrast Media Allergy (Severe, Verified 06/27/21 15:24) Swelling peanut Allergy (Severe, Verified 12/02/21 00:44) Difficulty Breathing aspirin Allergy (Intermediate, Verified 06/27/21 15:24) Swelling kiwi Allergy (Intermediate, Verified 12/02/21 00:44) Swelling of Tongue and Lips dextromethorphan [From Theraflu Day-Night Cold,Cough] Adverse Reaction (Mild, Verified 06/27/21 15:24) Vomiting diphenhydramine [From Theraflu Day-Night Cold,Cough] Adverse Reaction (Mild, Verified 06/27/21 15:24) Vomiting guaifenesin [From Mucinex] Adverse Reaction (Mild, Verified 06/27/21 15:24) Nausea and Vomiting ibuprofen [From Advil] Adverse Reaction (Mild, Verified 06/27/21 15:24) Headache nut - unspecified Adverse Reaction (Mild, Verified 12/07/21 21:28) Hives phenylephrine [From Theraflu Day-Night Cold,Cough] Adverse Reaction (Mild, Verified 06/27/21 15:24) Vomiting Hospital Summary - Hospital Course Hospital Course: pt admitted on december 07 for oral cytotec and subsequently delivered on december 08 via without complication live baby boy. during period did well and had stable hgb level as she started with hgb level of 8. pt discharged today and was advised to fu in office in 3 wks for care all questions answered to her satisfaction. - Vitals & Intake/Output Vital Signs: Vital Signs Temperature 97.8 F 12/10/21 02:00 Pulse Rate 88 12/10/21 02:00 Respiratory Rate 16 12/10/21 02:00 Blood Pressure 110/63 12/10/21 02:00 O2 Sat by Pulse Oximetry 99 12/10/21 02:00 Intake & Output: Intake & Output 12/07/21 12/08/21 12/09/21 12/10/21 11:59 11:59 11:59 11:59 Intake Total 0252 130 3324 Output Total 200 Balance 975 597 3393 Weight 61.235 kg - Lab Result Diagrams: 12/09/21 05:14 Lab Results-Last 24 Hrs: Lab Results-Last 24 Hours 12/07/21 Range/Units 17:25 Hep Bs Antigen Negative (Negative) Final Diagnosis/Problem List - Final Discharge Diagnosis/Problem (1) Vaginal delivery Current Visit: Yes Status: Acute Code(s): O80 - ENCOUNTER FOR FULL-TERM UNCOMPLICATED DELIVERY (2) Anemia affecting Current Visit: Yes Status: Acute Code(s): O99.019 - ANEMIA COMPLICATING , UNSPECIFIED TRIMESTER - Discharge Disposition: Home, Self-Care Condition: Stable Prescriptions: [place] Polysaccharides Complex [Ferrex 150] 150 mg PO DAILY #30 cap No Action Pnv No.103/Folic/Om3s/Fish Oil [ Gummies] 1 each PO DAILY Follow up with: NELLY SCHRADER DO [Primary Care Provider] -
[2021-12-10] MEDS: FERREX 150 PO SCH (09:26)
[2021-12-10] MEDS: TYLENOL EXTRA STRENGTH 500 MG PO PRN ×2 (17:53→23:51)
[2021-12-10 19:07] VITALS: O2SAT 99
[2021-12-10] MEDS: MOTRIN 400 MG PO PRN (23:14)
[2021-12-10 23:19] VITALS: BP 120/69; PULSE 88
== END 2021-12-10 23:50 | disposition home or self-care (01) | DRG 807 ==
LOC: OB 16:27 → OBSVTOIN 12-08 → MED SURG 12-08 17:39
PROVIDERS: ADMIT Obstetrics & Gynecology; ATTEND Obstetrics & Gynecology
PROC: 10E0XZZ Delivery of Products of Conception, External Approach (ICD-10-PCS; principal; 2021-12-08)
PROC: 0HQ9XZZ Repair Perineum Skin, External Approach (ICD-10-PCS; 2021-12-08)
DX: O70.9 Perineal laceration during delivery, unspecified (principal); Z37.0 Single live birth; O69.81X0 Labor and delivery complicated by cord around neck, without compression, not applicable or unspecified; O99.02 Anemia complicating childbirth; Z3A.40 40 weeks gestation of pregnancy; Z20.828 Contact with and (suspected) exposure to other viral communicable diseases
CPT/HCPCS: 36415; 59409; 80307; 81015; 84112; 85025; 86850; 86900; 86901; 87340; 90715; G0378; J0595; J2590; A9270-GY

== ENCOUNTER 2022-01-25 16:14 | Emergency (ER) | payer OTHER ==
[2022-01-25] MEDS ORDERED: TYLENOL 325 MG PO STA (17:17)
[2022-01-25] MEDS ORDERED: TYLENOL 325 MG ONE (17:23)
[2022-01-25 18:23] LABS: INFLUENZA A NEGATIVE (NEGATIVE); INFLUENZA B NEGATIVE (NEGATIVE); RESPIRATORY SYNCTIAL VIRUS NEGATIVE (Negative)
[2022-01-25 18:32] LABS: SARS-CoV-2 Xpert Express POSITIVE (NEGATIVE)
--- NOTE | 2022-01-25 18:44 | ERPHSYRPT ---
- History of Present Illness Time Seen by Provider: 01/25/22 17:10 Source: patient Exam Limitations: no limitations Patient Subjective Stated Complaint: C/O headache and body aches Triage Nursing Assessment: Patient ambulated back to ED. No cough or SOB noted. She is alert and oriented and answering questions appropriately. Skin is hot to touch; patient is flushed. Lungs clear. She is showing s/s of pain; restless in bed. Physician History: Patient is a 21-year-old female presents to our ED for evaluation of body aches and a headache. Patient has been exposed to COVID. Patient believes she may be COVID-positive. No nausea or vomiting. No diarrhea. No rash. Symptoms have been ongoing for 1 day. Symptoms are mild to moderate in intensity. No specific worsening improving factors. Patient otherwise feels well. Patient voices no other complaints or concerns at this time. Timing/Duration: today Severity: moderate Modifying Factors: Improves With: nothing Associated Symptoms: denies symptoms Allergies/Adverse Reactions: Iodinated Contrast Media Allergy (Severe, Verified 01/25/22 17:07) Swelling peanut Allergy (Severe, Verified 01/25/22 17:07) Difficulty Breathing aspirin Allergy (Intermediate, Verified 01/25/22 17:07) Swelling kiwi Allergy (Intermediate, Verified 01/25/22 17:07) Swelling of Tongue and Lips dextromethorphan [From Theraflu Day-Night Cold,Cough] Adverse Reaction (Mild, Verified 01/25/22 17:07) Vomiting diphenhydramine [From Theraflu Day-Night Cold,Cough] Adverse Reaction (Mild, Verified 01/25/22 17:07) Vomiting guaifenesin [From Mucinex] Adverse Reaction (Mild, Verified 01/25/22 17:07) Nausea and Vomiting ibuprofen [From Advil] Adverse Reaction (Mild, Verified 01/25/22 17:07) Headache nut - unspecified Adverse Reaction (Mild, Verified 01/25/22 17:07) Hives phenylephrine [From Theraflu Day-Night Cold,Cough] Adverse Reaction (Mild, Verif ied 01/25/22 17:07) Vomiting Home Medications: Pnv No.103/Folic/Om3s/Fish Oil [ Gummies] 1 each PO DAILY 12/02/21 [History] Hx Tetanus, Diphtheria Vaccination/Date Given: Yes Hx Influenza Vaccination/Date Given: No Hx Pneumococcal Vaccination/Date Given: No Immunizations Up to Date: Yes Travel Risk - International Travel Have you traveled outside of the country in past 3 weeks: No - Coronavirus Screening Are you exhibiting any of the following symptoms?: Yes Symptoms: Fever, Headaches/Body Aches/Fatigue Close contact with a COVID-19 positive Pt in past 14-21 Days: Yes - Vaccine Status Have you recieved a Covid-19 vaccination: No - Vaccination Dates Comment: not vaccinated - Review of Systems Constitutional: No Symptoms, No Fever, No Chills Eyes: No Symptoms Ears, Nose, & Throat: No Symptoms Respiratory: No Symptoms, No Cough, No Dyspnea Cardiac: No Symptoms, No Chest Pain, No Edema, No Syncope Abdominal/Gastrointestinal: No Symptoms, No Abdominal Pain, No Nausea, No Vomiting, No Diarrhea Genitourinary Symptoms: No Symptoms, No Dysuria Musculoskeletal: No Symptoms, No Back Pain, No Neck Pain Skin: No Symptoms, No Rash Neurological: No Symptoms, No Dizziness, No Focal Weakness, No Sensory Changes Psychological: No Symptoms Endocrine: No Symptoms Hematologic/Lymphatic: No Symptoms Immunological/Allergic: No Symptoms All Other Systems: Reviewed and Negative - Past Medical History Pertinent Past Medical History: No Neurological History: No Pertinent History ENT History: No Pertinent History Cardiac History: No Pertinent History Respiratory History: No Pertinent History Endocrine Medical History: No Pertinent History Musculoskeletal History: No Pertinent History GI Medical History: No Pertinent History History: Other Psycho-Social History: Anxiety, Panic Disorder Female Reproductive Disorders: Endometriosis, Other Other Medical History: UTI's, Yeast infections, 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 - Past Surgical History Past Surgical History: Yes (Left index finger blood tumor) Neuro Surgical History: No Pertinent History Cardiac: No Pertinent History Respiratory: No Pertinent History Gastrointestinal: No Pertinent History Genitourinary: No Pertinent History Musculoskeletal: No Pertinent History Female Surgical History: Other Other Surgical History: Vaginal scope for endometriosis/ovaries. - Social History Smoking Status: Former smoker How long have you smoked: 1 month Exposure to second hand smoke: No Drug Use: none Patient Lives Alone: No Significant Family History: no pertinent family hx - Female History Hx Now: No - Nursing Vital Signs Nursing Vital Signs: Initial Vital Signs Temperature 101.7 F 01/25/22 17:00 Pulse Rate 110 H 01/25/22 17:00 Respiratory Rate 18 01/25/22 17:00 Blood Pressure 101/62 01/25/22 17:00 O2 Sat by Pulse Oximetry 98 01/25/22 17:00 Pain Scale Pain Intensity 10 - Physical Exam General Appearance: no apparent distress, alert Eye Exam: PERRL/EOMI, eyes nml inspection Ears, Nose, Throat Exam: normal ENT inspection, TMs normal, pharynx normal, moist mucous membranes Neck Exam: normal inspection, non-tender, supple, full range of motion Respiratory Exam: normal breath sounds, lungs clear, airway intact, No respiratory distress Cardiovascular Exam: regular rate/rhythm, normal heart sounds, normal peripheral pulses Gastrointestinal/Abdomen Exam: soft, normal bowel sounds, No tenderness, No mass Back Exam: normal inspection, normal range of motion, No CVA tenderness, No vertebral tenderness Extremity Exam: normal inspection, normal range of motion, pelvis stable Neurologic Exam: alert, oriented x 3, cooperative, normal mood/affect, nml cerebellar function, nml station & gait, sensation nml, No motor deficits Skin Exam: normal color, warm, dry, No rash Lymphatic Exam: No adenopathy SpO2 Interpretation: normal SpO2: 98 O2 Delivery: Room Air - Course Nursing assessment & vital signs reviewed: Yes Ordered Tests: Medication Summary Discontinued Medications Generic Name Dose Route Start Last Admin Trade Name Gloria PRN Reason Stop Dose Admin Acetaminophen 650 mg 01/25/22 17:17 01/25/22 17:24 Acetaminophen 325 Mg Tablet PO 01/25/22 17:18 650 mg STAT STA Administration Acetaminophen Confirm 01/25/22 17:23 Acetaminophen 325 Mg Tablet Administered 01/25/22 17:24 Dose 650 mg .ROUTE .ITYZ ONE Lab/Rad Data: Laboratory Results 01/25/22 Range/Units 17:35 Influenza Type A Ag NEGATIVE (NEGATIVE) Influenza Type B Ag NEGATIVE (NEGATIVE) RSV (PCR) NEGATIVE (Negative) SARS-CoV-2 (PCR) POSITIVE A (NEGATIVE) - Progress Progress: improved Progress Note: Patient reassessed. Patient feels better after Tylenol administration. Myalgias and headache significantly improved. Patient states he is ready for discharge. 01/25/22 18:51 heart rate currently 90. She is no longer tachycardic. Will discharge home. Mother agrees to follow-up with primary care doctor within 48 hours for evaluation. Portions of this note were created with voice recognition technology. There may be grammatical, spelling, punctuation or sound alike errors Counseled pt/family regarding: lab results, diagnosis, need for follow-up - Departure Departure Disposition: Home Clinical Impression: COVID-19, Viral syndrome, Fever Condition: Stable Critical Care Time: No Referrals: NELLY SCHRADER, [Primary Care Provider] - Follow up/PCP as directed Instructions: COVID-19 Overview, COVID-19 ED Additional Instructions: Discharge/Care Plan JHOANA MEDINA was seen on 01/25/22 in the Emergency Room. The patient was counseled regarding Diagnosis,Lab results, Imaging studies, need for follow up and when to return to the Emergency Room. Prescriptions given: Discharge Note I have spoken with the patient and/or caregivers. I have explained the patient's condition, diagnosis and treatment plan based on the information available to me at this time. I have answered the patient's and/or caregiver's questions and addressed any concerns. The patient and/or caregivers have as good understanding of the patient's diagnosis, condition and treatment plan as can be expected at this point. The vital signs have been stable. The patient's condition is stable and appropriate for discharge from the emergency department. The patient will pursue further outpatient evaluation with the primary care physician or other designated or consulting physician as outlined in the discharge instructions. The patient and/or caregivers are agreeable to this plan of care and follow-up instructions have been explained in detail. The patient and/or caregivers have received these instruction. The patient/and or caregivers are aware that any significant change in condition or worsening of symptoms should prompt an immediate return to this or the closest emergency department or call 911.
[2022-01-25 18:51] VITALS: BP 110/60
[2022-01-25 18:52] VITALS: PULSE 92
[2022-01-25 18:53] VITALS: O2SAT 98
== END 2022-01-25 19:00 | disposition home or self-care (01) ==
LOC: ED 16:14
DX: U07.1 COVID-19 (principal); R50.9 Fever, unspecified; R51.9 Headache, unspecified; M79.10 Myalgia, unspecified site; Z28.310 Unvaccinated for COVID-19; Z20.822 Contact with and (suspected) exposure to COVID-19
CPT/HCPCS: 0241U; 99283; A9270-GY

== ENCOUNTER 2022-04-12 12:11 | Emergency (ER) | payer OTHER ==
[2022-04-12] MEDS ORDERED: XYLOCAINE 1% HCL 20 ML MDV IJ ONE (12:12)
[2022-04-12 12:19] VITALS: BP 116/83; PULSE 137; O2SAT 100
[2022-04-12] MEDS ORDERED: MORPHINE SULFATE 2 MG INJ ONE (12:43)
--- NOTE | 2022-04-12 12:43 | ERPHSYRPT ---
- History of Present Illness Time Seen by Provider: 04/12/22 12:18 Source: patient Exam Limitations: no limitations Patient Subjective Stated Complaint: Pt states "I had a dental extraction yesterday and now my face is really swollen and incredibly painful." Triage Nursing Assessment: Pt presented alert and oriented X 3, skin pwd. Pt ambulates with an upright steady gait, able to speak in clear full sentences pt in no apparent respiratory distress. pt has severe swelling noted to left jaw. Physician History: Patient 21-year-old female presents emergency department for evaluation of pain and swelling to her left cheek. Patient states she had a left lower molar tooth extraction performed yesterday. Today she awoke with the swelling. Has a prescription for amoxicillin that was given to her by her dentist however she has not yet taken her medication. Patient is here for pain control. No trauma. No fever. No nausea vomiting or diaphoresis. No airway compromise. Patient states she is here because her significant other's mother advised her to come get checked out due to the amount of swelling at her left cheek. Patient tolerating oral secretions well. No difficulty eating. Patient voices no other complaints or concerns at this time. Portions of this note were created with voice recognition technology. There may be grammatical, spelling, punctuation or sound alike errors Timing/Duration: today Severity: moderate Modifying Factors: Improves With: nothing Associated Symptoms: denies symptoms Allergies/Adverse Reactions: Iodinated Contrast Media Allergy (Severe, Verified 01/25/22 17:07) Swelling peanut Allergy (Severe, Verified 01/25/22 17:07) Difficulty Breathing aspirin Allergy (Intermediate, Verified 01/25/22 17:07) Swelling kiwi Allergy (Intermediate, Verified 01/25/22 17:07) Swelling of Tongue and Lips dextromethorphan [From Theraflu Day-Night Cold,Cough] Adverse Reaction (Mild, Verified 01/25/22 17:07) Vomiting diphenhydramine [From Theraflu Day-Night Cold,Cough] Adverse Reaction (Mild, Verified 01/25/22 17:07) Vomiting guaifenesin [From Mucinex] Adverse Reaction (Mild, Verified 01/25/22 17:07) Nausea and Vomiting ibuprofen [From Advil] Adverse Reaction (Mild, Verified 01/25/22 17:07) Headache nut - unspecified Adverse Reaction (Mild, Verified 01/25/22 17:07) Hives phenylephrine [From Theraflu Day-Night Cold,Cough] Adverse Reaction (Mild, Verified 01/25/22 17:07) Vomiting Home Medications: Amoxicillin 500 mg PO TID 04/12/22 [History] Hx Tetanus, Diphtheria Vaccination/Date Given: Yes Hx Influenza Vaccination/Date Given: No Hx Pneumococcal Vaccination/Date Given: No Immunizations Up to Date: Yes Travel Risk - International Travel Have you traveled outside of the country in past 3 weeks: No - Coronavirus Screening Are you exhibiting any of the following symptoms?: No Close contact with a COVID-19 positive Pt in past 14-21 Days: No - Vaccine Status Have you recieved a Covid-19 vaccination: No - Vaccination Dates Comment: not vaccinated - Review of Systems Constitutional: No Symptoms, No Fever, No Chills Eyes: No Symptoms Ears, Nose, & Throat: No Symptoms Respiratory: No Symptoms, No Cough, No Dyspnea Cardiac: No Symptoms, No Chest Pain, No Edema, No Syncope Abdominal/Gastrointestinal: No Symptoms, No Abdominal Pain, No Nausea, No Vomiting, No Diarrhea Genitourinary Symptoms: No Symptoms, No Dysuria Musculoskeletal: No Symptoms, No Back Pain, No Neck Pain Skin: No Symptoms, No Rash Neurological: No Symptoms, No Dizziness, No Focal Weakness, No Sensory Changes Psychological: No Symptoms Endocrine: No Symptoms Hematologic/Lymphatic: No Symptoms Immunological/Allergic: No Symptoms All Other Systems: Reviewed and Negative - Past Medical History Pertinent Past Medical History: No Neurological History: No Pertinent History ENT History: No Pertinent History Cardiac History: No Pertinent History Respiratory History: No Pertinent History Endocrine Medical History: No Pertinent History Musculoskeletal History: No Pertinent History GI Medical History: No Pertinent History History: Other Psycho-Social History: Anxiety, Panic Disorder Female Reproductive Disorders: Endometriosis, Other Other Medical History: UTI's, Yeast infections, 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 - Past Surgical History Past Surgical History: Yes (Left index finger blood tumor) Neuro Surgical History: No Pertinent History Cardiac: No Pertinent History Respiratory: No Pertinent History Gastrointestinal: No Pertinent History Genitourinary: No Pertinent History Musculoskeletal: No Pertinent History Female Surgical History: Other Other Surgical History: Vaginal scope for endometriosis/ovaries. - Social History Smoking Status: Former smoker How long have you smoked: 1 month Exposure to second hand smoke: No Drug Use: none Patient Lives Alone: No Significant Family History: no pertinent family hx - Female History Hx Last Menstrual Period: 04/05/2022 Hx Now: No - Nursing Vital Signs Nursing Vital Signs: Initial Vital Signs Temperature 99.1 F 04/12/22 12:14 Pulse Rate 137 H 04/12/22 12:14 Respiratory Rate 22 04/12/22 12:14 Blood Pressure 116/83 04/12/22 12:14 O2 Sat by Pulse Oximetry 100 04/12/22 12:14 Pain Scale Pain Intensity 8 - Physical Exam General Appearance: no apparent distress, alert Eye Exam: PERRL/EOMI, eyes nml inspection Ears, Nose, Throat Exam: normal ENT inspection, TMs normal, pharynx normal, moist mucous membranes, other (Moderate left-sided facial swelling. Patient tolerating oral secretions. Patent airway. Normal voice not muffled. No cervical lymphadenopathy.) Neck Exam: normal inspection, non-tender, supple, full range of motion Respiratory Exam: normal breath sounds, lungs clear, No respiratory distress Cardiovascular Exam: regular rate/rhythm, normal heart sounds, normal peripheral pulses Gastrointestinal/Abdomen Exam: soft, normal bowel sounds, No tenderness, No mass Back Exam: normal inspection, normal range of motion, No CVA tenderness, No vertebral tenderness Extremity Exam: normal inspection, normal range of motion, pelvis stable Neurologic Exam: alert, oriented x 3, cooperative, normal mood/affect, nml cerebellar function, nml station & gait, sensation nml, No motor deficits Skin Exam: normal color, warm, dry, No rash Lymphatic Exam: No adenopathy SpO2 Interpretation: normal SpO2: 100 O2 Delivery: Room Air - Course Nursing assessment & vital signs reviewed: Yes Ordered Tests: Medication Summary Discontinued Medications Generic Name Dose Route Start Last Admin Trade Name Micheleq PRN Reason Stop Dose Admin Acetaminophen 975 mg 04/12/22 12:38 Acetaminophen 325 Mg Tablet PO 04/12/22 12:39 STAT ONE Acetaminophen Confirm 04/12/22 12:44 Acetaminophen 325 Mg Tablet Administered 04/12/22 12:45 Dose 975 mg .ROUTE .STK-MED ONE Ceftriaxone Sodium 1,000 mg 04/12/22 12:38 Ceftriaxone Sodium 1000 Mg Inj Vial IM 04/12/22 12:39 STAT ONE Ceftriaxone Sodium Confirm 04/12/22 12:44 Ceftriaxone Sodium 1000 Mg Inj Vial Administered 04/12/22 12:45 Dose 1,000 mg .ROUTE .STK-MED ONE Morphine Sulfate 2 mg 04/12/22 12:38 Morphine Sulfate 2 Mg/Ml Inj IM 04/12/22 12:39 STAT ONE Morphine Sulfate Confirm 04/12/22 12:43 Morphine Sulfate 2 Mg/Ml Inj Administered 04/12/22 12:44 Dose 2 mg .ROUTE .STK-MED ONE - Progress Progress: improved Progress Note: Patient reassessed. Pain improved. Patient received a dose of Rocephin in our ED as she has not began taking her amoxicillin. We added a clindamycin antibiotic onto patient's antibiotic outpatient regimen. Patient agrees to follow-up with her primary care doctor within 48 hours for evaluation. Patient voices no other complaints or concerns at this time. Portions of this note were created with voice recognition technology. There may be grammatical, spelling, punctuation or sound alike errors 04/12/22 12:50 Counseled pt/family regarding: diagnosis, need for follow-up - Departure Departure Disposition: Home Clinical Impression: Pain, dental, Dental infection, Facial swelling Condition: Stable Critical Care Time: No Referrals: NELLY SCHRADER DO [Primary Care Provider] - Follow up/PCP as directed Prescriptions: Clindamycin HCl 150 mg [Cleocin 150 mg Capsule] 2 cap PO QID #56 cap
[2022-04-12] MEDS ORDERED: TYLENOL 325 MG ONE (12:44)
[2022-04-12] MEDS ORDERED: Rocephin 1000 MG INJ ONE (12:44)
[2022-04-12] MEDS: Rocephin 1000 MG INJ IM ONE (12:50)
[2022-04-12] MEDS: MORPHINE SULFATE 2 MG INJ IM ONE (12:51)
[2022-04-12] MEDS: TYLENOL 325 MG PO ONE (12:52)
== END 2022-04-12 13:20 | disposition home or self-care (01) ==
LOC: ED 12:11
DX: K04.7 Periapical abscess without sinus (principal); K08.89 Other specified disorders of teeth and supporting structures; R22.0 Localized swelling, mass and lump, head; Z28.310 Unvaccinated for COVID-19
CPT/HCPCS: 96372; 99283; J0696; J2270; A9270-GY

== ENCOUNTER 2023-06-25 15:47 | Observation (INO) | payer OTHER ==
[2023-06-25 16:30] VITALS: BP 114/73; PULSE 114; RESP 14; TEMP 98.2; O2SAT 98
[2023-06-25 17:10] LABS: Amphetamine,Urine NEGATIVE (NEGATIVE); Barbiturate,Urine NEGATIVE (NEGATIVE); Benzodiazepine,Urine NEGATIVE (NEGATIVE); Cocaine,Urine NEGATIVE (NEGATIVE); Methadone,Urine NEGATIVE (NEGATIVE); Opiate,Urine NEGATIVE (NEGATIVE); PCP,Urine NEGATIVE (NEGATIVE); THC,Urine NEGATIVE (NEGATIVE)
== END 2023-06-25 18:19 | disposition home or self-care (01) ==
LOC: MED SURG 15:47 → OB 15:47 → UNDOADMOB 15:47
PROVIDERS: ADMIT Family Medicine; ATTEND Family Medicine
DX: Z34.83 Encounter for supervision of other normal pregnancy, third trimester (principal); Z3A.34 34 weeks gestation of pregnancy
CPT/HCPCS: 80307; 99213; G0378; G0379

== ENCOUNTER 2023-07-10 02:11 | Observation (INO) | payer OTHER ==
[2023-07-10 02:40] LABS: AMNISURE TEST RESULTS NEGATIVE (NEGATIVE)
[2023-07-10 03:35] LABS: Appearance Turbid (Clear); Bacteria None Seen /HPF (None Seen); Bilirubin Negative (Negative); Blood Negative (Negative); Epithelial Cells Rare /HPF (None Seen); Glucose, Urine Negative (Negative); Hyaline Casts NONE SEEN /LPF (0-2); Ketones Negative (Negative); Leukocyte Esterase Trace (Negative); Nitrite Negative (Negative); Protein,Urine Dip Negative (Negative); RBC 0-2 /HPF (0-5)
[2023-07-10 03:40] LABS: ADD URINE CULTURE? NO (NO); Amourphous Crystal Moderate /HPF (None Seen)
[2023-07-10 03:54] LABS: Amphetamine,Urine NEGATIVE (NEGATIVE); Barbiturate,Urine NEGATIVE (NEGATIVE); Benzodiazepine,Urine NEGATIVE (NEGATIVE); Cocaine,Urine NEGATIVE (NEGATIVE); Methadone,Urine NEGATIVE (NEGATIVE); Opiate,Urine NEGATIVE (NEGATIVE); PCP,Urine NEGATIVE (NEGATIVE); THC,Urine NEGATIVE (NEGATIVE)
[2023-07-11 00:15] VITALS: BP 112/66; PULSE 97; RESP 18; TEMP 97.7; O2SAT 97
== END 2023-07-10 04:16 | disposition home or self-care (01) ==
LOC: OB 02:11
PROVIDERS: ADMIT Family Medicine; ATTEND Family Medicine
DX: Z34.83 Encounter for supervision of other normal pregnancy, third trimester (principal); Z3A.36 36 weeks gestation of pregnancy
CPT/HCPCS: 80307; 81001; 84112; 99213; G0378; G0379

== ENCOUNTER 2023-07-13 21:18 | Observation (INO) | payer OTHER ==
[2023-07-13 21:53] LABS: Appearance Clear (Clear); Bacteria None Seen /HPF (None Seen); Bilirubin Negative (Negative); Blood Negative (Negative); Epithelial Cells Moderate /HPF (None Seen); Glucose, Urine Negative (Negative); Hyaline Casts NONE SEEN /LPF (0-2); Ketones Trace (Negative); Leukocyte Esterase Small (Negative); Nitrite Negative (Negative); Ph 7.5 (4.6-8.0); Protein,Urine Dip Negative (Negative); RBC 0-2 /HPF (0-5); Specific Gravity 1.015 (1.005-1.030); Urobilinogen 0.2 mg/dL (0.2); WBC 21-50 /HPF (0-5)
[2023-07-13 21:56] LABS: ADD URINE CULTURE? YES (NO)
[2023-07-13 21:58] LABS: AMNISURE TEST RESULTS NEGATIVE (NEGATIVE)
[2023-07-13 22:01] VITALS: BP 109/67; PULSE 96; RESP 18; TEMP 98.3; O2SAT 97
== END 2023-07-13 22:42 | disposition home or self-care (01) ==
LOC: OB 21:18
PROVIDERS: ADMIT Family Medicine; ATTEND Family Medicine
DX: Z34.83 Encounter for supervision of other normal pregnancy, third trimester (principal); Z3A.37 37 weeks gestation of pregnancy
CPT/HCPCS: 81001; 84112; 87086; 99213; G0378; G0379

== ENCOUNTER 2023-07-27 00:22 | Observation (INO) | payer OTHER ==
[2023-07-27 00:46] LABS: AMNISURE TEST RESULTS NEGATIVE (NEGATIVE)
[2023-07-27 00:54] VITALS: BP 118/67; PULSE 122; RESP 20; TEMP 98.4; O2SAT 97
[2023-07-27] MEDS ORDERED: Zofran 4 MG/2 ML VIAL ONE (01:10)
[2023-07-27] MEDS ORDERED: Lactated Ringers 1,000 ML IV ONE (01:10)
[2023-07-27] MEDS: Lactated Ringers 1,000 ML IV SCH (01:23)
[2023-07-27] MEDS: Zofran 4 MG/2 ML VIAL IV PRN (01:24)
== END 2023-07-27 02:30 | disposition home or self-care (01) ==
LOC: OB 00:22
PROVIDERS: ADMIT Family Medicine; ATTEND Family Medicine
DX: Z34.83 Encounter for supervision of other normal pregnancy, third trimester (principal); Z3A.39 39 weeks gestation of pregnancy
CPT/HCPCS: 84112; 99213; G0378; G0379; J2405

== ENCOUNTER 2023-07-30 13:56 | Inpatient (IN) | payer OTHER ==
[2023-07-30] MEDS ORDERED: XYLOCAINE 1% HCL 20 ML MDV IJ PRN (17:16)
[2023-07-30 17:34] LABS: Absolute Neutrophil Ct (ANC) 5.82 x10^3/uL (1.4-6.9); BASOPHIL % 0.1 % (0.0-0.4); Basophil (Absolute #) 0.01 x10^3/uL (0-0.4); Eosinophil % 0.1 % (0.00-5.0); Eosinophil (Absolute #) 0.01 x10^3/uL (0-0.5); Hematocrit 29.5 % (35-47); Hemoglobin 9.1 g/dL (12.0-16.0); IMMATURE GRAN # 0.05 x10^3u/L (0.00-0.03); IMMATURE GRAN % 0.7 % (0.00-0.4); Lymphocyte (Absolute #) 1.26 x10^3/uL (1.0-4.6); Lymphocytes % 16.7 % (24.0-44.0); Mean Corpuscular Hemoglobin 23.5 pg (26-32); Mean Corpuscular Hgb Concent. 30.8 g/dL (32-36); Mean Platelet Volume 11.1 fL (7.5-11.0); Monocyte (Absolute #) 0.38 x10^3/uL (0.0-1.3); Neutrophil % 77.4 % (36.0-66.0); Platelet Count 207 x10^3/uL (150-450); Red Blood Count 3.88 x10^6/uL (4.1-5.4); Red Cell Distribution Width 15.9 % (11.5-14.0); White Blood Count 7.5 x10^3/uL (4.0-10.5)
[2023-07-30 17:52] LABS: Amphetamine,Urine NEGATIVE (NEGATIVE); Barbiturate,Urine NEGATIVE (NEGATIVE); Benzodiazepine,Urine NEGATIVE (NEGATIVE); Cocaine,Urine NEGATIVE (NEGATIVE); Methadone,Urine NEGATIVE (NEGATIVE); Opiate,Urine NEGATIVE (NEGATIVE); PCP,Urine NEGATIVE (NEGATIVE); THC,Urine NEGATIVE (NEGATIVE)
[2023-07-30] MEDS: CYTOTEC PO SCH (17:58)
[2023-07-30] MEDS: Lactated Ringers 1,000 ML IV SCH (17:58)
[2023-07-30 18:37] LABS: ABO TYPING O; Antibody Screen NEGATIVE (NEGATIVE); RH TYPING POSITIVE
[2023-07-30] MEDS: Pepcid 20 MG VIAL IV SCH (22:20)
[2023-07-30] MEDS: Tums EX 750 MG PO PRN (22:25)
[2023-07-31] MEDS ORDERED: Ephedrine Sulfate 50 MG/ML IV PRN (07:33)
[2023-07-31] MEDS: PITOCIN 30 UNITS/ LR 500 ML 30 UNITS/500 ML PLAST..BAG IV SCH (07:42)
[2023-07-31] MEDS: Lactated Ringers 1,000 ML IV ONE (07:42)
[2023-07-31] MEDS: FENTANYL 2 MCG-BUPIV 0.125%-NS 250 ML Epidur 250 ML EPIDURAL SCH (08:16)
[2023-07-31] MEDS ORDERED: Adacel Vial IM ONE (13:56)
[2023-07-31] MEDS: Dermoplast Spray TP PRN (14:42)
[2023-07-31] MEDS: LANSINOH 40 GM TOP PRN (14:43)
[2023-07-31] MEDS: TUCKS TP PRN (14:43)
[2023-08-01 05:30] LABS: Absolute Neutrophil Ct (ANC) 7.17 x10^3/uL (1.4-6.9); BASOPHIL % 0.1 % (0.0-0.4); Basophil (Absolute #) 0.01 x10^3/uL (0-0.4); Eosinophil % 0.2 % (0.00-5.0); Eosinophil (Absolute #) 0.02 x10^3/uL (0-0.5); Hematocrit 25.5 % (35-47); Hemoglobin 7.7 g/dL (12.0-16.0); IMMATURE GRAN # 0.09 x10^3u/L (0.00-0.03); Lymphocytes % 16.1 % (24.0-44.0); Mean Cell Volume 77.3 fL (78-100); Mean Corpuscular Hemoglobin 23.3 pg (26-32); Mean Corpuscular Hgb Concent. 30.2 g/dL (32-36); Mean Platelet Volume 10.6 fL (7.5-11.0); Monocyte (Absolute #) 0.55 x10^3/uL (0.0-1.3); Monocytes % 5.9 % (0.0-12.0); Neutrophil % 76.7 % (36.0-66.0); Platelet Count 169 x10^3/uL (150-450); White Blood Count 9.3 x10^3/uL (4.0-10.5)
[2023-08-01] MEDS: Docusate Sodium 100 MG PO SCH ×2 (06:13→10:14)
[2023-08-01] MEDS ORDERED: Restoril 15 MG PO PRN (08:31)
[2023-08-01] MEDS ORDERED: Dermoplast Spray TP PRN (08:31)
[2023-08-01] MEDS ORDERED: LANSINOH 40 GM TOP PRN (08:31)
[2023-08-01] MEDS ORDERED: Mylicon 80MG PO PRN (08:31)
[2023-08-01] MEDS ORDERED: Dulcolax 10 MG SUPP PR PRN (08:31)
[2023-08-01] MEDS ORDERED: CORTISONE 1% CREAM TP PRN (08:31)
[2023-08-01] MEDS ORDERED: FERREX 150 PO SCH (10:00)
[2023-08-01] MEDS: FERREX 150 PO SCH (10:14)
[2023-08-02 05:27] LABS: BASOPHIL % 0.2 % (0.0-0.4); Basophil (Absolute #) 0.02 x10^3/uL (0-0.4); Eosinophil % 0.6 % (0.00-5.0); Eosinophil (Absolute #) 0.06 x10^3/uL (0-0.5); Hematocrit 25.7 % (35-47); Hemoglobin 7.9 g/dL (12.0-16.0); IMMATURE GRAN # 0.16 x10^3u/L (0.00-0.03); IMMATURE GRAN % 1.5 % (0.00-0.4); Lymphocyte (Absolute #) 2.05 x10^3/uL (1.0-4.6); Mean Cell Volume 76.7 fL (78-100); Mean Corpuscular Hemoglobin 23.6 pg (26-32); Mean Corpuscular Hgb Concent. 30.7 g/dL (32-36); Mean Platelet Volume 11.3 fL (7.5-11.0); Monocyte (Absolute #) 0.59 x10^3/uL (0.0-1.3); Monocytes % 5.5 % (0.0-12.0); NUCLEATED RBC # 0.02 x10^3u/L (0.00-0.01); NUCLEATED RBC % 0.2 % (0.00-0.1); Neutrophil % 73.2 % (36.0-66.0); Platelet Count 201 x10^3/uL (150-450); Red Blood Count 3.35 x10^6/uL (4.1-5.4); Red Cell Distribution Width 16.3 % (11.5-14.0); White Blood Count 10.8 x10^3/uL (4.0-10.5)
--- NOTE | 2023-08-02 09:42 | PCM.DS ---
Discharge Summary Date of Admission: 07/30/23 16:52 Admitting Physician: BERTIN FIGUEROA Consults: Consults on Case 07/31/23 16:26 Navigation ONCE Primary Care Provider: BERTIN FIGUEROA Allergies Allergies Iodinated Contrast Media Allergy (Severe, Verified 07/30/23 19:07) Swelling peanut Allergy (Severe, Verified 07/30/23 19:07) Difficulty Breathing aspirin Allergy (Intermediate, Verified 07/30/23 19:07) headaches, hives kiwi Allergy (Intermediate, Verified 07/30/23 19:07) Swelling of Tongue and Lips peanut oil Allergy (Verified 08/01/23 08:40) dextromethorphan [From Theraflu Day-Night Cold,Cough] Adverse Reaction (Mild, Verified 07/30/23 19:07) Vomiting guaifenesin [From Mucinex] Adverse Reaction (Mild, Verified 07/30/23 19:07) Nausea and Vomiting ibuprofen [From Advil] Adverse Reaction (Mild, Verified 07/30/23 19:07) Headache nut - unspecified Adverse Reaction (Mild, Verified 07/30/23 19:07) Hives phenylephrine [From Theraflu Day-Night Cold,Cough] Adverse Reaction (Mild, Verified 07/30/23 19:07) Vomiting Hospital Summary - Hospital Course Hospital Course: patient had uncomplicated term vaginal delivery, no issues . mild lochia, minimal pain and tolerating regular diet - Vitals & Intake/Output Vital Signs: Vital Signs Temperature 98.6 F 08/02/23 01:07 Pulse Rate 74 08/02/23 01:07 Respiratory Rate 18 08/02/23 01:07 Blood Pressure 122/70 08/02/23 01:07 O2 Sat by Pulse Oximetry 92 L 08/01/23 20:00 Intake & Output: Intake & Output 07/30/23 07/31/23 08/01/23 08/02/23 11:59 11:59 11:59 11:59 Intake Total 07533 3000 1000 Output Total 600 Balance 45933 2400 1000 Weight 67.585 kg - Lab Result Diagrams: 08/02/23 04:19 Lab Results-Last 24 Hrs: Lab Results-Last 24 Hours 08/02/23 Range/Units 04:19 WBC 10.8 H (4.0-10.5) x10^3/uL RBC 3.35 L (4.1-5.4) x10^6/uL Hgb 7.9 L (12.0-16.0) g/dL Hct 25.7 L (35-47) % MCV 76.7 L (78-100) fL MCH 23.6 L (26-32) pg MCHC 30.7 L (32-36) g/dL RDW 16.3 H (11.5-14.0) % Plt Count 201 (150-450) x10^3/uL MPV 11.3 H (7.5-11.0) fL Gran % 73.2 H (36.0-66.0) % Immature Gran % (Auto) 1.5 H (0.00-0.4) % Nucleat RBC Rel Count 0.2 H (0.00-0.1) % Eos # (Auto) 0.06 (0-0.5) x10^3/uL Immature Gran # (Auto) 0.16 H (0.00-0.03) x10^3u/L Absolute Lymphs (auto) 2.05 (1.0-4.6) x10^3/uL Absolute Monos (auto) 0.59 (0.0-1.3) x10^3/uL Absolute Nucleated RBC 0.02 H (0.00-0.01) x10^3u/L Lymphocytes % 19.0 L (24.0-44.0) % Monocytes % 5.5 (0.0-12.0) % Eosinophils % 0.6 (0.00-5.0) % Basophils % 0.2 (0.0-0.4) % Absolute Granulocytes 7.90 H (1.4-6.9) x10^3/uL Basophils # 0.02 (0-0.4) x10^3/uL Micro Results-Entire Visit: Microbiology 07/31/23 09:45 Urine Culture - Preliminary Urine, Catheterized NO GROWTH TO DATE Discharge Exam General Appearance: no apparent distress Neurologic Exam: alert Respiratory Exam: normal breath sounds, lungs clear, No respiratory distress Cardiovascular Exam: regular rate/rhythm, normal heart sounds Gastrointestinal/Abdomen Exam: soft, No tenderness, No mass Extremity Exam: normal inspection, normal range of motion Skin Exam: normal color, warm, dry Final Diagnosis/Problem List - Final Discharge Diagnosis/Problem (1) Normal vaginal delivery Current Visit: Yes Status: Acute Code(s): O80 - ENCOUNTER FOR FULL-TERM UNCOMPLICATED DELIVERY - Discharge Disposition: Home, Self-Care Condition: Stable Prescriptions: Continue Famotidine 20 mg [Pepcid 20 MG] 20 mg PO DAILY Venlafaxine HCl ER 75 mg [Effexor XR 75 MG] 75 mg PO DAILY PRN PRN Reason: Anxiety Docusate Sodium [Stool Softener] 100 mg PO DAILY Changed Ferrous Sulfate [Ferosul] 325 mg PO BID 30 Days #60 tablet Discontinued Pnv No.95/Ferrous Fum/Folic AC [ Vitamin Tablet] 1 each PO DAILY Follow up with: BERTIN FIGUEROA MD [Primary Care Provider] - 6 weeks
[2023-08-02] MEDS: FERREX 150 PO SCH (09:44)
[2023-08-02 16:47] VITALS: RESP 18
[2023-08-02] MEDS ORDERED: TYLENOL EXTRA STRENGTH 500 MG ONE (19:42)
[2023-08-02] MEDS ORDERED: TYLENOL EXTRA STRENGTH 500 MG PO PRN (19:44)
[2023-08-02] MEDS: TYLENOL EXTRA STRENGTH 500 MG PO PRN (19:46)
[2023-08-02 20:12] VITALS: O2SAT 100
[2023-08-02] MEDS: PITOCIN 30 UNITS/ LR 500 ML 30 UNITS/500 ML PLAST..BAG IV SCH (22:55)
[2023-08-02 23:50] VITALS: BP 111/65; PULSE 109; TEMP 98.8
--- NOTE | 2023-08-03 03:18 | PCM.DS ---
Discharge Summary Date of Admission: 07/30/23 16:52 Admitting Physician: BERTIN FIGUEROA Consults: Consults on Case 07/31/23 16:26 Navigation ONCE Primary Care Provider: BERTIN FIGUEROA Allergies Allergies Iodinated Contrast Media Allergy (Severe, Verified 07/30/23 19:07) Swelling peanut Allergy (Severe, Verified 07/30/23 19:07) Difficulty Breathing aspirin Allergy (Intermediate, Verified 07/30/23 19:07) headaches, hives kiwi Allergy (Intermediate, Verified 07/30/23 19:07) Swelling of Tongue and Lips peanut oil Allergy (Verified 08/01/23 08:40) dextromethorphan [From Theraflu Day-Night Cold,Cough] Adverse Reaction (Mild, Verified 07/30/23 19:07) Vomiting guaifenesin [From Mucinex] Adverse Reaction (Mild, Verified 07/30/23 19:07) Nausea and Vomiting ibuprofen [From Advil] Adverse Reaction (Mild, Verified 07/30/23 19:07) Headache nut - unspecified Adverse Reaction (Mild, Verified 07/30/23 19:07) Hives phenylephrine [From Theraflu Day-Night Cold,Cough] Adverse Reaction (Mild, Verified 07/30/23 19:07) Vomiting Hospital Summary - Hospital Course Hospital Course: patient had uneventful vaginal delivery with no repair, has done well . mild anemia, asympatomic. pre-delivery hemoglobin was around 9. she is pumping some breastmilk, no issues , baby transferring to NICU so mom is discharging at this time. - Vitals & Intake/Output Vital Signs: Vital Signs Temperature 98.8 F 08/02/23 23:49 Pulse Rate 109 H 08/02/23 23:49 Respiratory Rate 18 08/02/23 23:49 Blood Pressure 111/65 08/02/23 23:49 O2 Sat by Pulse Oximetry 100 08/02/23 23:49 Intake & Output: Intake & Output 07/31/23 08/01/23 08/02/23 08/03/23 11:59 11:59 11:59 11:59 Intake Total 45200 3000 1000 1200 Output Total 600 Balance 91555 2400 1000 1200 Weight 67.585 kg - Lab Result Diagrams: 08/02/23 04:19 Lab Results-Last 24 Hrs: Lab Results-Last 24 Hours 08/02/23 Range/Units 04:19 WBC 10.8 H (4.0-10.5) x10^3/uL RBC 3.35 L (4.1-5.4) x10^6/uL Hgb 7.9 L (12.0-16.0) g/dL Hct 25.7 L (35-47) % MCV 76.7 L (78-100) fL MCH 23.6 L (26-32) pg MCHC 30.7 L (32-36) g/dL RDW 16.3 H (11.5-14.0) % Plt Count 201 (150-450) x10^3/uL MPV 11.3 H (7.5-11.0) fL Gran % 73.2 H (36.0-66.0) % Immature Gran % (Auto) 1.5 H (0.00-0.4) % Nucleat RBC Rel Count 0.2 H (0.00-0.1) % Eos # (Auto) 0.06 (0-0.5) x10^3/uL Immature Gran # (Auto) 0.16 H (0.00-0.03) x10^3u/L Absolute Lymphs (auto) 2.05 (1.0-4.6) x10^3/uL Absolute Monos (auto) 0.59 (0.0-1.3) x10^3/uL Absolute Nucleated RBC 0.02 H (0.00-0.01) x10^3u/L Lymphocytes % 19.0 L (24.0-44.0) % Monocytes % 5.5 (0.0-12.0) % Eosinophils % 0.6 (0.00-5.0) % Basophils % 0.2 (0.0-0.4) % Absolute Granulocytes 7.90 H (1.4-6.9) x10^3/uL Basophils # 0.02 (0-0.4) x10^3/uL Micro Results-Entire Visit: Microbiology 07/31/23 09:45 Urine Culture - Final Urine, Catheterized NO GROWTH Discharge Exam General Appearance: no apparent distress Neurologic Exam: alert Respiratory Exam: normal breath sounds, lungs clear, No respiratory distress Cardiovascular Exam: regular rate/rhythm, normal heart sounds Gastrointestinal/Abdomen Exam: soft, No tenderness, No mass Skin Exam: normal color, warm, dry Final Diagnosis/Problem List - Final Discharge Diagnosis/Problem (1) Normal vaginal delivery Current Visit: Yes Status: Acute Code(s): O80 - ENCOUNTER FOR FULL-TERM UNCOMPLICATED DELIVERY - Discharge Disposition: Home, Self-Care Condition: Stable Prescriptions: Continue Famotidine 20 mg [Pepcid 20 MG] 20 mg PO DAILY Venlafaxine HCl ER 75 mg [Effexor XR 75 MG] 75 mg PO DAILY PRN PRN Reason: Anxiety Docusate Sodium [Stool Softener] 100 mg PO DAILY Changed Ferrous Sulfate [Ferosul] 325 mg PO BID 30 Days #60 tablet Discontinued Pnv No.95/Ferrous Fum/Folic AC [ Vitamin Tablet] 1 each PO DAILY Follow up with: BERTIN FIGUEROA MD [Primary Care Provider] - 6 weeks
== END 2023-08-03 03:56 | disposition home or self-care (01) | DRG 807 ==
LOC: OB 16:52 → OBSVTOIN 16:52
PROVIDERS: ADMIT Family Medicine; ATTEND Family Medicine
PROC: 10E0XZZ Delivery of Products of Conception, External Approach (ICD-10-PCS; principal; 2023-07-31)
DX: O80 Encounter for full-term uncomplicated delivery (principal); Z37.0 Single live birth; D64.9 Anemia, unspecified; Z3A.39 39 weeks gestation of pregnancy; Z20.828 Contact with and (suspected) exposure to other viral communicable diseases
CPT/HCPCS: 36415; 80307; 85025; 86850; 86900; 86901; 87086; J2590; A9270-GY

== ENCOUNTER 2024-02-04 07:23 | Emergency (ER) | payer OTHER ==
[2024-02-04 07:39] VITALS: BP 123/79; PULSE 83; RESP 18; TEMP 97.4
[2024-02-04 07:40] VITALS: O2SAT 96
--- NOTE | 2024-02-04 07:43 | ERPHSYRPT ---
- History of Present Illness Time Seen by Provider: 02/04/24 07:43 Source: patient Exam Limitations: no limitations Patient Subjective Stated Complaint: pt here for sob that started this morning after getting bit by a spider today, no cough, no fever, Triage Nursing Assessment: pt alert, walked in, resp easy, holding rib area, chest clear, abd soft, has small raised area to inner aspect of left foot, she states her foot is burning Timing/Duration: today Quality: burning Severity: mild Location: extremities (left medial foot) Possible Causes: insect bite Associated Symptoms: change in skin texture, numbness Allergies/Adverse Reactions: Iodinated Contrast Media Allergy (Severe, Verified 02/04/24 07:25) Swelling peanut Allergy (Severe, Verified 02/04/24 07:25) Difficulty Breathing aspirin Allergy (Intermediate, Verified 02/04/24 07:25) headaches, hives kiwi Allergy (Intermediate, Verified 02/04/24 07:25) Swelling of Tongue and Lips peanut oil Allergy (Verified 02/04/24 07:25) dextromethorphan [From Theraflu Day-Night Cold,Cough] Adverse Reaction (Mild, Verified 02/04/24 07:25) Vomiting guaifenesin [From Mucinex] Adverse Reaction (Mild, Verified 02/04/24 07:25) Nausea and Vomiting ibuprofen [From Advil] Adverse Reaction (Mild, Verified 02/04/24 07:25) Headache nut - unspecified Adverse Reaction (Mild, Verified 02/04/24 07:25) Hives phenylephrine [From Theraflu Day-Night Cold,Cough] Adverse Reaction (Mild, Verified 02/04/24 07:25) Vomiting Hx Tetanus, Diphtheria Vaccination/Date Given: No Hx Influenza Vaccination/Date Given: No Hx Pneumococcal Vaccination/Date Given: No Immunizations Up to Date: Yes Travel Risk - International Travel Have you traveled outside of the country in past 3 weeks: No - Emerging Infectious Disease Are you exhibiting symptoms associated with any current EIDs: No - Review of Systems All Other Systems: Reviewed and Negative - Past Medical History Pertinent Past Medical History: Yes Neurological History: No Pertinent History ENT History: No Pertinent History Cardiac History: No Pertinent History Respiratory History: No Pertinent History Endocrine Medical History: No Pertinent History Musculoskeletal History: No Pertinent History GI Medical History: No Pertinent History History: Other Psycho-Social History: Panic Disorder Female Reproductive Disorders: Endometriosis, Other Other Medical History: UTI's, Yeast infections, 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 Significant Family History: no pertinent family hx - Female History Hx Last Menstrual Period: yesterday Hx Now: No - Social History Smoking Status: Current some day smoker How long have you smoked: 1 month Exposure to second hand smoke: No Drug Use: none Patient Lives Alone: No - Social Determinants of Health Will the patient participate in the screening: Yes Do you worry about a steady place to live?: No Do you have any problems with any of the following?: No known problems In the past 12 months,have you had to go without utilities?: No Transportation Issues: No Has anyone in your support network made you feel unsafe?: No Have you or anyone in your house had to go without enough: No - Nursing Vital Signs Nursing Vital Signs: Initial Vital Signs Temperature 97.4 F 02/04/24 07:37 Pulse Rate 83 02/04/24 07:37 Respiratory Rate 18 02/04/24 07:37 Blood Pressure 123/79 02/04/24 07:37 O2 Sat by Pulse Oximetry 100 02/04/24 07:37 Pain Scale Pain Intensity 7 - Physical Exam General Appearance: no apparent distress Respiratory Exam: airway intact, No respiratory distress Cardiovascular Exam: regular rate/rhythm Skin Exam: other (left medial malleolus bite x 2, [id number] erythema surrounding both, no drainage. ) SpO2 Interpretation: normal SpO2: 96 O2 Delivery: Room Air - Course Nursing assessment & vital signs reviewed: Yes - Progress Progress: improved Progress Note: Patient reports witnessed spider bite this morning. She has some erythema surrounding both bites. No active drainage. Patient reports nausea since the event. Will give Zofran in emergency room today as well as send home for as needed use. Marked area of erythema with skin marker and advised that if redness begins to extend please return or follow-up with primary physician for evaluation for cellulitis. 02/04/24 07:53 Counseled pt/family regarding: diagnosis Medical Desision Making - Diagnostic Testing Diagnostic test were ordered, analyzed, and reviewed by me: No - Risk of complications The pt has a mod risk of morbidity or mortality based on: Need for prescription drug management - Departure Departure Disposition: Home Clinical Impression: Spider bite, Nausea Condition: Good Critical Care Time: No Referrals: BERTIN FIGUEROA MD [Primary Care Provider] - Follow up/PCP as directed Instructions: Spider bites Prescriptions: ondansetron HCL [Zofran] 8 mg PO TID PRN 5 Days #15 tablet PRN Reason: Nausea
[2024-02-04] MEDS ORDERED: ZOFRAN ODT 4 MG ONE ×2 (07:53→07:55)
[2024-02-04] MEDS: ZOFRAN ODT 4 MG PO ONE (07:54)
== END 2024-02-04 08:28 | disposition home or self-care (01) ==
LOC: ED 07:23
DX: S90.562A Insect bite (nonvenomous), left ankle, initial encounter (principal); W57.XXXA Bitten or stung by nonvenomous insect and other nonvenomous arthropods, initial encounter; R11.0 Nausea; R06.02 Shortness of breath; Z72.0 Tobacco use
CPT/HCPCS: 99281; Q0162

== ENCOUNTER 2024-12-31 22:05 | Emergency (ER) | payer OTHER ==
[2024-12-31 22:22] VITALS: RESP 18; TEMP 98.4
--- NOTE | 2024-12-31 22:51 | ERPHSYRPT ---
- History of Present Illness Time Seen by Provider: 12/31/24 22:48 Source: patient Exam Limitations: no limitations Patient Subjective Stated Complaint: pt states that she has a headache Triage Nursing Assessment: pt came into the er via ambulance; pt transfer self to cot; pt is axo x4; c/o headache; pt states 8/10 pain to head; c/o dizziness; denies LOC; c/o N/V, denies diarrhea; pupils 3 mm and PERRL; strong ceci quality control and pushes; skin PDW; no respiratory distress present; vital wnl Physician History: A 24-year-old female presents to our ED via EMS with a headache. Headache is associated with nausea and vomiting. Patient states she feels dizzy as well. Patient has not eaten or drinking anything due to the vomiting. No head trauma. Patient had a similar headache last month associated with her menstrual period. However this headache precedes her menstrual period. Patient states it feels a little different. It extends from her forehead backwards towards the base of her skull. No focal or lateralizing symptomology. No numbness tingling or weakness. No syncope. Patient symptoms are mild to moderate in intensity. Headache is associated with photophobia. No fever no nuchal rigidity or meningeal signs. Patient otherwise feels well. She voices no other complaints at this time. Portions of this note were created with voice recognition technology. There may be grammatical, spelling, punctuation or sound alike errors Timing/Duration: today Severity: moderate Modifying Factors: Improves With: nothing Associated Symptoms: denies symptoms Allergies/Adverse Reactions: Iodinated Contrast Media Allergy (Severe, Verified 12/31/24 22:09) Swelling peanut Allergy (Severe, Verified 12/31/24 22:09) Difficulty Breathing aspirin Allergy (Intermediate, Verified 12/31/24 22:09) headaches, hives kiwi Allergy (Intermediate, Verified 12/31/24 22:09) Swelling of Tongue and Lips peanut oil Allergy (Verified 12/31/24 22:09) dextromethorphan [From Theraflu Day-Night Cold,Cough] Adverse Reaction (Mild, Verified 12/31/24 22:09) Vomiting ibuprofen [From Advil] Adverse Reaction (Mild, Verified 12/31/24 22:09) Headache nut - unspecified Adverse Reaction (Mild, Verified 12/31/24 22:09) Hives phenylephrine [From Theraflu Day-Night Cold,Cough] Adverse Reaction (Mild, Verified 12/31/24 22:09) Vomiting Home Medications: No Reportable Medications [No Reported Medications] 12/31/24 [History] Hx Tetanus, Diphtheria Vaccination/Date Given: Yes (2021) Hx Influenza Vaccination/Date Given: No Hx Pneumococcal Vaccination/Date Given: No Travel Risk - International Travel Have you traveled outside of the country in past 3 weeks: No - Emerging Infectious Disease Are you exhibiting symptoms associated with any current EIDs: Yes Symptoms: Headaches/Body Aches/ - Review of Systems All Other Systems: Reviewed and Negative - Past Medical History Pertinent Past Medical History: Yes Neurological History: No Pertinent History ENT History: No Pertinent History Cardiac History: No Pertinent History Respiratory History: No Pertinent History Endocrine Medical History: No Pertinent History Musculoskeletal History: No Pertinent History GI Medical History: No Pertinent History History: Other Psycho-Social History: Panic Disorder Female Reproductive Disorders: Endometriosis, Other Other Medical History: UTI's, Yeast infections, 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 Significant Family History: no pertinent family hx - Female History Hx Last Menstrual Period: 11/27 Hx Now: No - Social History Smoking Status: Current some day smoker How long have you smoked: 1 month Exposure to second hand smoke: No Drug Use: none - Social Determinants of Health Will the patient participate in the screening: Yes Do you worry about a steady place to live?: No Do you have any problems with any of the following?: No known problems In the past 12 months,have you had to go without utilities?: No Transportation Issues: No Has anyone in your support network made you feel unsafe?: No Have you or anyone in your house had to go w/o enough food: No - Nursing Vital Signs Nursing Vital Signs: Initial Vital Signs Pulse Rate 82 12/31/24 22:08 Blood Pressure 125/83 12/31/24 22:08 O2 Sat by Pulse Oximetry 99 12/31/24 22:08 Pain Scale Pain Intensity 8 - Physical Exam General Appearance: no apparent distress, alert Eye Exam: PERRL/EOMI, eyes nml inspection Ears, Nose, Throat Exam: normal ENT inspection, pharynx normal, moist mucous membranes Neck Exam: normal inspection, non-tender, supple, full range of motion Respiratory Exam: normal breath sounds, lungs clear, airway intact, No respiratory distress Cardiovascular Exam: regular rate/rhythm, normal heart sounds, normal peripheral pulses Gastrointestinal/Abdomen Exam: soft, normal bowel sounds, No tenderness, No mass Back Exam: normal inspection, normal range of motion, No CVA tenderness, No vertebral tenderness Extremity Exam: normal inspection, normal range of motion, pelvis stable Neurologic Exam: alert, oriented x 3, cooperative, normal mood/affect, sensation nml, No motor deficits Skin Exam: normal color, warm, dry, No rash Lymphatic Exam: No adenopathy SpO2 Interpretation: normal SpO2: 98 O2 Delivery: Room Air - Course Nursing assessment & vital signs reviewed: Yes - CT Exams Head CT Interpretation: Tele-radiologist Report (No acute findings CT head) Ordered Tests: Active Orders 24 hr Category Date Time Status IV Insertion STAT Care 12/31/24 22:45 Active HEAD WITHOUT CONTRAST [CT] Stat Exams 12/31/24 22:44 Completed CBC W DIFF Stat Lab 12/31/24 22:45 Completed CMP Stat Lab 12/31/24 22:45 Completed UA W/RFX UR CULTURE Stat Lab 12/31/24 22:46 Ordered Medication Summary Discontinued Medications Generic Name Dose Route Start Last Admin Trade Name Freq PRN Reason Stop Dose Admin Diphenhydramine HCl 25 mg 12/31/24 22:47 12/31/24 22:56 Diphenhydramine Hcl 50 Mg/Ml Vial IV 12/31/24 22:48 25 mg STAT ONE Administration Diphenhydramine HCl Confirm 12/31/24 22:52 Diphenhydramine Hcl 50 Mg/Ml Vial Administered 12/31/24 22:53 Dose 50 mg .ROUTE .STK-MED ONE Sodium Chloride 1,000 mls @ 999 mls/hr 12/31/24 22:45 12/31/24 23:56 Sodium Chloride 0.9% 1000 Ml IV 12/31/24 23:45 Infused .Q1H1M STA Infusion Acetaminophen 1,000 mg in 100 mls @ 400 mls/hr 12/31/24 22:47 12/31/24 23:12 Ofirmev IV 12/31/24 23:01 Infused 1HRPRIOR ONE Infusion Acetaminophen Confirm 12/31/24 22:52 Ofirmev Administered 12/31/24 22:53 Dose 100 mls @ ud IV .STK-MED ONE Sodium Chloride Confirm 12/31/24 22:52 Sodium Chloride 0.9% 1000 Ml Administered 12/31/24 22:53 Dose 1,000 mls @ ud .ROUTE .STK-MED ONE Prochlorperazine Edisylate 10 mg 12/31/24 22:45 12/31/24 22:55 Prochlorperazine Edisylate 10 Mg/2 Ml Vial IV 12/31/24 22:46 10 mg STAT ONE Administration Prochlorperazine Edisylate Confirm 12/31/24 22:52 Prochlorperazine Edisylate 10 Mg/2 Ml Vial Administered 12/31/24 22:53 Dose 10 mg .ROUTE .STK-MED ONE Lab/Rad Data: Laboratory Result Diagrams 12/31/24 22:45 12/31/24 22:45 Laboratory Results 12/31/24 12/31/24 Range/Units 22:45 22:45 WBC 5.8 (3.98-10.04) x10^3/uL RBC 4.58 (3.93-5.22) x10^6/uL Hgb 12.2 (11.2-15.7) g/dL Hct 38.1 (34.1-44.9) % MCV 83.2 (79.4-94.8) fL MCH 26.6 (25.6-32.2) pg MCHC 32.0 L (32.2-35.5) g/dL RDW 16.6 H (11.7-14.4) % Plt Count 238 (182-369) x10^3/uL MPV 10.7 (9.4-12.3) fL Gran % 68.3 (34.0-71.1) % Immature Gran % (Auto) 0.2 (0.001-0.429) % Nucleat RBC Rel Count 0.0 (0.00-0.2) % Eos # (Auto) 0.04 (0.04-0.36) x10^3/uL Immature Gran # (Auto) 0.01 (0.001-0.031) x10^3u/L Absolute Lymphs (auto) 1.47 (1.18-3.74) x10^3/uL Absolute Monos (auto) 0.30 (0.24-0.86) x10^3/uL Absolute Nucleated RBC 0.00 (0.00-0.012) x10^3u/L Lymphocytes % 25.4 (19.3-51.7) % Monocytes % 5.2 (4.7-12.5) % Eosinophils % 0.7 (0.7-5.8) % Basophils % 0.2 (0.1-1.2) % Absolute Granulocytes 3.95 (1.56-6.13) x10^3/uL Basophils # 0.01 (0.01-0.08) x10^3/uL Sodium 140 (135-145) mmol/L Potassium 3.3 L (3.5-5.1) mmol/L Chloride 107 (98-107) mmol/L Carbon Dioxide 23 (22-30) mmol/L Anion Gap 13.4 (5-15) MEQ/L BUN 4 L (7-17) mg/dL Creatinine 0.70 (0.52-1.04) mg/dL Estimated GFR 122.3 ML/MIN Glucose 138 H (74-106) mg/dL Calcium 9.1 (8.4-10.2) mg/dL Total Bilirubin 1.30 (0.2-1.3) mg/dL AST 24 (14-36) U/L ALT 17 (0-35) U/L Alkaline Phosphatase 55 (38-126) U/L Serum Total Protein 8.0 (6.3-8.2) g/dL Albumin 4.8 (3.5-5.0) g/dL - Progress Progress: improved Progress Note: Patient is a 24-year-old female presents to our ED with a migraine headache. Patient states her headache was different from her previous. No trauma. Physical exam unremarkable. Patient reassessed. Headache essentially resolved. Patient received IV fluids, Ofirmev IV Tylenol, Compazine and Benadryl. Toradol was not administered secondary to allergy to aspirin. CT head negative for acute intracranial pathology. Laboratory workup shows a potassium of 3.3. We advised oral potassium replacement. However patient declined. We intended to get a urinalysis as well. Patient states her headache resolved and she was not ready to produce urine. Patient now requesting discharge as she feels much better. Repeat physical exam is nonremarkable. Neurologic exam is normal. Patient appears well. Conversant and in no distress. We will discharge patient home per her request. She agrees to follow-up with primary care doctor within 48 hours for reevaluation. Patient voices no other complaints or concerns at this time. Portions of this note were created with voice recognition technology. There may be grammatical, spelling, punctuation or sound alike errors Complexity of problem addressed is moderate acute complicated. No critical care time. Complex of data reviewed and analyzed as moderate. Test ordered chest reviewed results analyzed and correlated clinically with history and physical exam. Risk of complication and or risk of morbidity/mortality of patient management is low. Vital stable. Time spent to discharge patient is approximately 15 minutes. Plan of care established for shared decision making. No social determinants of health present to impede follow-up. Portions of this note were created with voice recognition technology. There may be grammatical, spelling, punctuation or sound alike errors 01/01/25 00:11 Counseled pt/family regarding: lab results, diagnosis, need for follow-up, rad results - Departure Departure Disposition: Home Clinical Impression: Migraine Condition: Stable Critical Care Time: No Referrals: BERTIN FIGUEROA MD [Primary Care Provider, [facility]] - Follow up/PCP as directed Additional Instructions: Discharge/Care Plan JHOANA MEDINA was seen on 01/01/25 in the Emergency Room. The patient was counseled regarding Diagnosis,Lab results, Imaging studies, need for follow up and when to return to the Emergency Room. Prescriptions given: Discharge Note I have spoken with the patient and/or caregivers. I have explained the patient's condition, diagnosis and treatment plan based on the information available to me at this time. I have answered the patient's and/or caregiver's questions and addressed any concerns. The patient and/or caregivers have as good understanding of the patient's diagnosis, condition and treatment plan as can be expected at this point. The vital signs have been stable. The patient's condition is stable and appropriate for discharge from the emergency department. The patient will pursue further outpatient evaluation with the primary care physician or other designated or consulting physician as outlined in the discharge instructions. The patient and/or caregivers are agreeable to this plan of care and follow-up instructions have been explained in detail. The patient and/or caregivers have received these instruction. The patient/and or caregivers are aware that any significant change in condition or worsening of symptoms should prompt an immediate return to this or the closest emergency department or call 911.
[2024-12-31] MEDS ORDERED: OFIRMEV 100 ML IV ONE (22:52)
[2024-12-31] MEDS ORDERED: Compazine 10 MG/2 ML ONE (22:52)
[2024-12-31] MEDS ORDERED: BENADRYL 50 MG/ML ONE (22:52)
[2024-12-31] MEDS: Compazine 10 MG/2 ML IV ONE (22:55)
[2024-12-31] MEDS: BENADRYL 50 MG/ML IV ONE (22:56)
[2024-12-31] MEDS: OFIRMEV 1,000 MG/100 ML ML IV ONE (22:57)
[2024-12-31 22:58] LABS: BASOPHIL % 0.2 % (0.1-1.2); Basophil (Absolute #) 0.01 x10^3/uL (0.01-0.08); Eosinophil (Absolute #) 0.04 x10^3/uL (0.04-0.36); Hematocrit 38.1 % (34.1-44.9); Hemoglobin 12.2 g/dL (11.2-15.7); IMMATURE GRAN # 0.01 x10^3u/L (0.001-0.031); IMMATURE GRAN % 0.2 % (0.001-0.429); Lymphocyte (Absolute #) 1.47 x10^3/uL (1.18-3.74); Mean Corpuscular Hemoglobin 26.6 pg (25.6-32.2); Mean Corpuscular Hgb Concent. 32.0 g/dL (32.2-35.5); Monocyte (Absolute #) 0.30 x10^3/uL (0.24-0.86); NUCLEATED RBC # 0.00 x10^3u/L (0.00-0.012); NUCLEATED RBC % 0.0 % (0.00-0.2); Platelet Count 238 x10^3/uL (182-369); Red Blood Count 4.58 x10^6/uL (3.93-5.22); White Blood Count 5.8 x10^3/uL (3.98-10.04)
[2024-12-31 23:11] LABS: Calcium 9.1 mg/dL (8.4-10.2); Carbon Dioxide 23.0 mmol/L (22-30); Creatinine 1 0.7 mg/dL (0.52-1.04); EST GLOMERULAR FILTRATION RATE 122.3 ML/MIN; Glucose 138.0 mg/dL (74-106); Potassium 3.3 mmol/L (3.5-5.1); SGOT/AST 24.0 U/L (14-36); SGPT/ALT 17.0 U/L (0-35); Total Protein 8.0 g/dL (6.3-8.2)
--- NOTE | 2025-01-01 00:01 | XRAY ---
CLINICAL HISTORY: pain COMPARISON: 05/04/2021 TECHNIQUE: Axial non-contrast CT scan of the brain was performed from the skull base to the high parietal region. One of the following dose reduction techniques were utilized for this exam: Automated exposure control, adjustment of the mA and/or kV according to patient size, use of iterative reconstruction. CTDI: ,53 DLP: 923 FINDINGS: Brain Parenchyma: Normal attenuation of the cerebral hemispheres, cerebellum, and brainstem. No evidence of acute infarct, hemorrhage, or mass effect. No abnormal areas of hypo- or hyperattenuation. Ventricular System: Ventricles are normal in size and configuration. No evidence of hydrocephalus or ventricular enlargement. Subarachnoid Spaces: Normal sulci and cisterns. No evidence of subarachnoid hemorrhage or extra-axial fluid collections. Cerebellum and Brainstem: No masses, lesions, or areas of abnormal density. Prominent cisterna magna noted Orbits: Normal appearance of the globes, optic nerves, and extraocular muscles. No evidence of orbital masses or abnormal density. Sinuses: Clear paranasal sinuses. No evidence of sinusitis or mucosal thickening. Mastoid Air Cells: Clear mastoid air cells. No evidence of mastoiditis. Skull: Normal skull morphology. IMPRESSION: Normal CT of the head without contrast. No interval changes. Electronically Signed by: Dougie Dwyer MD. (12/31/2024 23:59:43 EDT)
[2025-01-01 00:11] VITALS: BP 108/65; PULSE 65
[2025-01-01 00:15] VITALS: O2SAT 98
== END 2025-01-01 00:17 | disposition home or self-care (01) ==
LOC: ED 22:05
DX: G43.909 Migraine, unspecified, not intractable, without status migrainosus (principal); Z72.0 Tobacco use